=== PATIENT | male | born 1965 | race Caucasian/White ===

== ENCOUNTER 2023-08-10 13:16 | Outpatient (CLI) | payer MEDICAID, SELFPAY ==
[2023-08-12 05:07] LABS: Alpha Antitrypsin Serum 74 mg/dL (101-187)
== END 2023-08-10 23:59 | disposition home or self-care (01) ==
PROVIDERS: PCP Family Medicine; Referring Provider Internal Medicine Critical Care Medicine; Visit Provider Internal Medicine Critical Care Medicine
DX: E88.01 Alpha-1-antitrypsin deficiency (principal)
CPT/HCPCS: 36415; 82103

== ENCOUNTER → 2023-08-18 | Outpatient (CLI) | payer MEDICAID, SELFPAY ==
--- NOTE | 2023-08-18 14:50 | CT_ITS ---
EXAM: CT CHEST, LUNG CANCER SCREENING WITHOUT INTRAVENOUS CONTRAST CLINICAL INDICATION: h/o Tobacco Dependency TECHNIQUE: Helically acquired images were obtained of the chest without intravenous contrast using low dose (LDCT) lung cancer screening protocol. This CT exam was performed using one or more of the following dose reduction techniques: automated exposure control, adjustment of the mA and/or kV according to patient size, and/or use of iterative reconstruction technique. COMPARISON: No relevant prior studies available. FINDINGS: LUNGS AND PLEURAL SPACES: There is a spiculated lesion right lower lobe and measures 2.3 x 1.2 x 1.7 cm. There is a second spiculated lesion in the left lower lobe and measures 1.3 x 0.9 x 0.5 cm. There are minimal emphysematous changes in the lung apices. No pleural effusion or thickening. No pneumothorax. HEART: Unremarkable. Heart size is normal. No pericardial effusion. No significant coronary artery calcifications. MEDIASTINUM: Unremarkable. No mediastinal or hilar adenopathy. Esophagus is unremarkable. No hiatal hernia. THYROID: Unremarkable. No thyroid lesions. BONES/JOINTS: Unremarkable. No suspicious lytic or blastic abnormality. VASCULATURE: Unremarkable. Thoracic aorta is non-dilated. LYMPH NODES: Unremarkable. No enlarged lymph nodes. CT/Low Dose CT Lung Screening IMPRESSION: Spiculated masses in the lung bases larger on the right than on the left. Lung-RADS score: 4B - Very Suspicious. Recommend chest CT with or without contrast, PET/CT and/or tissue sampling depending on the probability of malignancy and comorbidities. PET/CT may be used when there is a >=8 mm solid component. For new large nodules that develop on an annual repeat screening CT, a 1 month LDCT may be recommended to address potentially infectious or inflammatory conditions. Electronically Signed: Otis Hirsch MD at 20:16 EST ,
== END | disposition home or self-care (01) ==
PROVIDERS: PCP Family Medicine; Referring Provider Internal Medicine Critical Care Medicine; Visit Provider Internal Medicine Critical Care Medicine
DX: F17.211 Nicotine dependence, cigarettes, in remission (principal)
CPT/HCPCS: 71271

== ENCOUNTER → 2023-08-25 | Outpatient (CLI) | payer MEDICAID, SELFPAY ==
[2023-08-25] VITALS (23 sets, daily range): BP systolic 60–154; BP diastolic 32–105; PULSE 77–92; RESP 14–18; TEMP 36.8; O2SAT 30–100; BMI 27.8
--- NOTE | 2023-08-25 | ASPIGT_PTH ---
PATHOLOGY RESULTS PATIENT: CLARKE BROWN LOC: CT U#:[id number] AGE/SX: 58/M ROOM: RE08/25/[address]: MAXWELL Joseph : 1965 BED: DIS: 08/25/2023 SPEC #: [id number] RECD: 08/25/23 10:36 STATUS: ANY MK #: [id number] ADELFO: 08/25/23 00:[address]: Alba Carlson NP DEPT: SURGICAL PATHOLOGY RECD BY: John Huynh ENTERED: 08/25/23 10:36 SP TYPE: ASP RAD OTHR DR: Dr. Sofia Valencia DO Tissues: Lung, NOS Procedures: FNA Specimen Adequacy Special Stain Group II Surgery Specimen Level IV Imprint (control) HEADER OPERATION: CT-guided right lung biopsy PRE-OP DIAGNOSIS: Right lower lung mass TISSUE SUBMITTED: Right lung 20-gauge core x6 MICROSCOPIC DIAGNOSIS Right lung, CT-guided core biopsy: Fragments of lung parenchymal tissue with focal fibrosis, negative for malignancy. See comment. MORIAH:beba 08/28/2023 COMMENT The specimen is evaluated at the time of biopsy by Dr. Duggan. Immediate Evaluation = Mildly atypical cells noted. Multiple levels are examined. Correlation with clinical, radiologic findings and appropriate follow up are necessary. Case has been reviewed in consultation with Dr. Moya who concurs with the above diagnosis. IDC:AM MICROSCOPIC DESCRIPTION Slides are reviewed. GROSS DESCRIPTION Received in fixative is one container labeled with the patient's name and designated right lower lung biopsy. The specimen consists of multiple irregular fragments of light lane soft tissue that in aggregate measure 1.0 x 0.2 x <0.1 cm. The specimen is totally submitted in one cassette. Two touch imprints are prepared at the time of core biopsy. / MORIAH:beba 08/25/23 TC:5 CPT: 07448, 87141
--- OUTSIDE RECORDS SUMMARY | 2023-08-25 09:13 | XMS RPT_ITS | CCD ---
Author Name Unknown Address [address] [place] [address] Organization [facility] Care Team Providers Care Public Service Administrator Name Role Phone Arie Noland Unavailable Unavailable Vasyl Williamson Unavailable Unavailable Sheets DO, Kayden Herrera Primary Care Provider Sheets DO, Kayden Herrera Primary Care Provider Sheets DO, Kayden Herrera Primary Care Provider Sheets DO, Kayden Herrera Primary Care Provider SheetsKayden Unavailable Unavailable Unavailable Kyleigh, Dr. Sully Byers Referring Unavai lable Sheets, Dr. Kayden Parr Primary Care Unavailable Piasedorina, Dr. Sully Byers Attending Unavai lable Annie, Dr. Kayden Parr Primary Care Unavailable Sheets, Dr. Kayden Parr Referring Unavailable Choloasedorina, Dr. Sully Byers Attending Unavai lable Kyleigh, Dr. Sully Byers Attending Unavai lable Sheets, Dr. Kayden Parr Primary Care Unavailable Piasedorina, Dr. Sully Byers Referring Unavai lable Sheets, Dr. Kayden Parr Primary Care Unavailable Pibuddy, Dr. Sully Byers Attending Mary Ellenvai lable Kyleigh, Dr. Sully Byers Referring Unavai lable Dasha Zepeda, Dr. Negro Hernandez Attending U navailable Dasha Zepeda, Dr. Negro Hernandez Referring U navelvi Valencia, Dr. Kayden Parr Primary Care Unavailable Kyleigh, Dr. Sully Byers Attending Mary Ellenvaladonna labeh Valencia, Dr. Kayden Parr Primary Care Unavailable Piasecki, Dr. Sully Byers Referring Unavai lable Piasecki, Dr. Sully Byers Attending Unavai lable Sheets, Dr. Kayden Parr Primary Care Unavailable Piasecki, Dr. Sully Byers Referring Unavai lable Sheets, Dr. Kayden Parr Primary Care Unavailable Brown, Dr. Mely Delacruz Attending Unavail able Sheets, Dr. Kayden Parr Primary Care Unavailable Sheets, Dr. Kayden Parr Referring Unavailable Piaseckladonna, Sully Attending Unavailable Sheets, Dr. Kayden Parr Primary Care Unavailable Sheets, Dr. Kaydne Parr Attending Unavailable Sheets, Dr. Kayden Parr Primary Care Unavailable Sheets, Dr. Kayden Parr Referring Unavailable Sheets, Dr. Kayden Parr Attending Unavailable Sheets, Dr. Kayden Parr Primary Care Unavailable Brown, Dr. Mely Delacruz Attending Unavail able Sheets, Dr. Kayden Parr Primary Care Unavailable Brown, Dr. Mely Delacruz Attending Unavail able Sheets, Dr. Kayden Parr Primary Care Unavailable Brown, Dr. Mely Delacruz Attending Unavail able Sheets, Dr. Kayden Parr Primary Care Unavailable Brown, Dr. Mely Delacurz Attending Unavail able Sheets, Dr. Kayden Parr Primary Care Unavailable Piasecki, Sully Referring Unavailable PiaseckiSully Attending Unavailable Sheets, Dr. Kayden Parr Primary Care Unavailable Brown, Dr. Mely Delacruz Attending Unavail able Sheets, Dr. Kayden Parr Referring Unavailable Sheets, Dr. Kayden Parr Primary Care Unavailable Sheets, Dr. Kayden Parr Attending Unavailable Sheets, Dr. Kayden Parr Primary Care Unavailable Sheets, Dr. Kayden Parr Attending Unavailable Sheets, Dr. Kayden Parr Referring Unavailable Sheets, Dr. Kayden Parr Referring Unavailable Sheets, Dr. Kayden Parr Primary Care Unavailable PiaseckSully dougherty Attending Unavailable Sheets, Dr. Kayden Parr Primary Care Unavailable Brown, Dr. Mely Delacruz Attending Unavail able Sheets, Dr. Kayden Parr Primary Care Unavailable Brown, Dr. Mely Delacruz Attending Unavail able Sheets, Dr. Kayden Parr Primary Care Unavailable Brown, Dr. Mely Delacruz Attending Unavail able Sheets, Dr. Kayden Parr Primary Care Unavailable Brown, Dr. Mely Delacruz Attending Unavail able Sheets, Dr. Kayden Parr Primary Care Unavailable PiuSlly goodwin Attending Unavailable Sheets, Dr. Kayden Parr Referring Unavailable Sheets, Dr. Kayden Parr Primary Care Unavailable PiSully goodwin Attending Unavailable Sheets, Dr. Kayden Parr Referring Unavailable Sheets, Dr. Kayden Parr Primary Care Unavailable PiSully goodwin Attending Unavailable Sheets, Dr. Kayden Parr Referring Unavailable Sheets, Dr. Kayden Parr Primary Care Unavailable PiaseSully cam Attending Unavailable Sheets, Dr. Kayden Parr Primary Care Unavailable Sheets, Dr. Kayden Parr Referring Unavailable Sheets, Dr. Kayden Parr Attending Unavailable Sheets, Dr. Kayden Parr Primary Care Unavailable Sheets, Dr. Kayden Parr Referring Unavailable Sheets, Dr. Kayden Parr Attending Unavailable Sheets, Dr. Kayden Parr Primary Care Unavailable Brown, Dr. Mely Delacruz Attending Unavail able Sheets, Dr. Kayden Parr Primary Care Unavailable Brown, Dr. Mely Delacruz Attending Unavail able Sheets, Dr. Kayden Parr Primary Care Unavailable Sheets, Dr. Kayden Parr Referring Unavailable PiSully goodwin Attending Unavailable Sheets, Dr. Kayden Parr Primary Care Unavailable Brown, Dr. Mely Delacruz Attending Unavail able Sheets, Dr. Kayden Parr Primary Care Unavailable Brown, Dr. Mely Delacruz Attending Unavail able Sheets, Dr. Kayden Parr Primary Care Unavailable Brown, Dr. Mely Delacruz Attending Unavail able Sheets, Dr. Kayden Parr Primary Care Unavailable Brown, Dr. Mely Delacruz Attending Unavail able Sheets, Dr. Kayden Parr Primary Care Unavailable Brown, Dr. Mely Delacruz Attending Unavail able Sheets, Dr. Kayden Parr Primary Care Unavailable Brown, Dr. Mely Delacruz Attending Unavail able Brown, Dr. Mely Delacruz Attending Unavail able Sheets, Dr. Kayden Parr Primary Care Unavailable Brown, Dr. Mely Delacruz Attending Unavail able Sheets, Dr. Kayden Parr Primary Care Unavailable Sheets, Dr. Kayden Parr Primary Care Unavailable Sheets, Dr. Kayden Parr Referring Unavailable Sheets, Dr. Kayden Parr Attending Unavailable Sheets, Dr. Kayden Parr Primary Care Unavailable Brown, Dr. Mely Delacruz Attending Unavail able Sheets, Dr. Kayden Parr Primary Care Unavailable Brown, Dr. Mely Delacruz Attending Unavail able Sheets, Dr. Kayden Parr Primary Care Unavailable Brown, Dr. Mely Delacruz Attending Unavail able Sheets, Dr. Kayden Parr Primary Care Unavailable Brown, Dr. Mely Delacruz Attending Unavail able Sheets, Dr. Kayden Parr Primary Care Unavailable Brown, Dr. Mely Delacruz Attending Unavail able Sheets, Dr. Kayden Parr Primary Care Unavailable Brown, Dr. Mely Delacruz Attending Unavail able Sheets, Dr. Kayden Parr Primary Care Unavailable Brown, Dr. Mely Delacruz Attending Unavail able Sheets, Dr. Kayden Parr Primary Care Unavailable Brown, Dr. Mely Delacruz Attending Unavail able Sheets, Dr. Kayden Parr Primary Care Unavailable Brown, Dr. Mely Delacruz Attending Unavail able Sheets, Dr. Kayden Parr Primary Care Unavailable Brown, Dr. Mely Delacruz Attending Unavail able Sheets, Dr. Kayden Parr Primary Care Unavailable Sheets, Dr. Kayden Parr Attending Unavailable Sheets, Dr. Kayden Parr Primary Care Unavailable Brown, Dr. Mely Delacruz Attending Unavail able Sheets, Dr. Kayden Parr Referring Unavailable Sheets, Dr. Kayden Parr Primary Care Unavailable Sully Arizmendi Unavailable Sheets, Dr. Kayden Parr Primary Care Unavailable Sheets, Dr. Kayden Parr Referring Unavailable Sheets, Dr. Kayden Parr Attending Unavailable Sheets, Dr. Kayden Parr Primary Care Unavailable Brown, Dr. Mely Delacruz Attending Unavail able Sheets, Dr. Kayden Parr Primary Care Unavailable Brown, Dr. Mely Delacruz Attending Unavail able Sheets, Dr. Kayden Parr Primary Care Unavailable Brown, Dr. Mely Delacruz Attending Unavail able Sheets, Dr. Kayden Parr Primary Care Unavailable Brown, Dr. Mely Delacruz Attending Unavail able Sheets, Dr. Kayden Parr Primary Care Unavailable Brown, Dr. Mely Heath Unavail able Sheets Kayden MARIE Primary Care Pro vider SULLY ARIZMENDI Attending Unavailable SHEETS, KAYDEN PARR Primary Care Mary Ellen vailable BROWNMELY Attending Unavailable SHEETS, KAYDEN C Primary Care Unavailable SHEETS, KAYDEN C Referring Unavailable SHEETS, KAYDEN C Primary Care Unavailable SHEETS, KAYDEN C Referring Unavailable SHEETS, KAYDEN C Attending Unavailable SHEETS, KAYDEN C Primary Care Unavailable SHEETS, KAYDEN C Referring Unavailable SHEETS, KAYDEN C Primary Care Unavailable SHEETS, KAYDEN C Primary Care Unavailable SHEETS, KAYDEN C Referring Unavailable SHEETS, KAYDEN C Primary Care Unavailable SHEETS, KAYDEN C Attending Unavailable SHEETS, KAYDEN C Primary Care Unavailable SHEETS, KAYDEN C Attending Unavailable SHEETS, KAYDEN C Attending Unavailable SHEETS, KAYDEN C Primary Care Unavailable SHEETS, KAYDEN PARR Primary Care Mary Ellen vailable SHEETS, KAYDEN PARR Primary Care Mary Ellen vailable Allergies Allergy Classification Reported Allergen(s) Allergy Type Date of Onset Reaction(s) Facility (1 source) methylprednisoLON E; Translations: [Solu-MEDROL] Drug Allergy [facility] Repository (12 sources) fluticasone / umeclidinium / vilanterol; Translations: [FLUTICASONE-UMEC LIDIN-VILANTER] Drug Allergy 1 Other: See Comments [facility] Work Phone: (20 sources) methylPREDNISolon e; Translations: [METHYLPREDNISOLO NE SODIUM SUCC] Drug Allergy 1 Other: See Comments, Unknown [facility] Work Phone: (20 sources) fluticasone / umeclidinium / vilanterol Drug Allergy 1 Other: See Comments [facility] Work Phone: (19 sources) methylPREDNISolon e; Translations: [SOLU-Medrol SOLR] Drug Allergy Hypotension [facility] DO Work Phone: Medications Current Medications Medication Drug Class(es) Dates Sig (Normalized) Sig (Original) Lactobacillus acidophilus (1 source) Lactobacillus acidophilus (PROBIOTIC ORAL) Take by mouth. Caps; use as directed 0 Active lactobacillus rhamnosus gg [id number] unt oral capsule (4 sources) Start: 10-12-2022 End: 10-12-2023 take 1 capsule by mouth once daily lactobacillus rhamnosus (CULTURELLE) 15 billion cell capsule TAKE ONE CAPSULE BY MOUTH DAILY. FOR 30 DAYS 30 capsule 0 10/12/2022 10/12/2023 Active Completed/Discontinued Medications Medication Drug Class(es) Dates Sig (Normalized) Sig (Original) [id number] actuat albuterol 0.09 mg/actuat metered dose inhaler (20 sources) beta2-Adrenergic Agonist Start: 11-12-2021 End: 07-22-2022 albuterol HFA (VENTOLIN HFA) 90 mcg/actuation inhaler USE 1 OR 2 INHALATIONS EVERY 4 HOURS NEEDED 1 Each 07/22/2022 Active Problems Active Problems Problem Classification Problem Date Documented Date Episodic/Chronic Alcohol-related disorders (20 sources) Alcohol dependence; Translations: [Alcohol dependence, uncomplicated] Onset: 02-09-2017 02-09-2017 Chronic Anxiety disorders (20 sources) Generalized anxiety disorder; Translations: [Generalized anxiety disorder] Onset: 01-13-2022 01-13-2022 Chronic Chronic obstructive pulmonary disease and bronchiectasis (20 sources) Centriacinar emphysema; Translations: [Centrilobular emphysema] Onset: 02-09-2017 Chronic Chronic obstructive pulmonary disease and bronchiectasis (2 sources) Bronchitis; Translations: [Bronchitis] Onset: 06-12-2023 Episodic Diseases of white blood cells (2 sources) Leukemoid reaction; Translations: [Leukemoid reaction] Onset: 07-20-2022 Chronic Essential hypertension (20 sources) Essential hypertension; Translations: [Essential (primary) hypertension] Onset: 03-03-2017 03-03-2017 Chronic Immunizations and screening for infectious disease (1 source) Needs influenza immunization; Translations: [Encounter for immunization] Episodic Other aftercare (1 source) Long-term current use of systemic steroid; Translations: [intermediate manager (current) use of systemic steroids] Episodic Other circulatory disease (19 sources) H/O: hypertension; Translations: [Personal history of other diseases of circulatory system] Episodic Other lower respiratory disease (2 sources) Multiple nodules of lung; Translations: [Other nonspecific abnormal finding of lung field] Episodic Other lower respiratory disease (19 sources) Dyspnea on exertion; Translations: [Other respiratory abnormalities] Onset: 04-06-2023 04-06-2023 Episodic Other lower respiratory disease (20 sources) Hypoxemia; Translations: [Hypoxemia] Onset: 04-06-2023 06-13-2023 Episodic Other nutritional; endocrine; and metabolic disorders (20 sources) Pqcpt-2-hwoevcpaosv deficiency; Translations: [Nhwjk-6-olbugdolhwz deficiency] Onset: 07-12-2021 07-12-2021 Chronic Other nutritional; endocrine; and metabolic disorders (13 sources) Obese class I; Translations: [Obesity, unspecified] Onset: 08-16-2022 Chronic Other nutritional; endocrine; and metabolic disorders (13 sources) Body mass index 30+ - obesity; Translations: [Body mass index (BMI) 31.0-31.9, adult] Onset: 08-16-2022 Chronic Other nutritional; endocrine; and metabolic disorders (1 source) Antichymotrypsin homfmzoieh-fqkix-4; Translations: [Other disorders of plasma-protein metabolism, not elsewhere classified] Onset: 04-06-2023 04-06-2023 Chronic Other nutritional; endocrine; and metabolic disorders (1 source) Ujzgn-7-gkntndnesps deficiency; Translations: [Qbvxf-9-dnnnneaxhxb deficiency (HCC)] Onset: 07-12-2021 Chronic Other nutritional; endocrine; and metabolic disorders (1 source) Obesity, unspecified; Translations: [Obesity, Class I, BMI 30-34.9] Onset: 08-16-2022 Chronic Other nutritional; endocrine; and metabolic disorders (1 source) Body mass index (BMI) 31.0-31.9, adult; Translations: [BMI 31.0-31.9,adult] Onset: 08-16-2022 Chronic Residual codes; unclassified (20 sources) Obstructive sleep apnea syndrome; Translations: [Obstructive sleep apnea (adult) (pediatric)] Onset: 02-09-2017 02-09-2017 Chronic Residual codes; unclassified (20 sources) Obstructive sleep apnea of adult; Translations: [Obstructive sleep apnea (adult)(pediatric)] Onset: 04-06-2023 04-06-2023 Chronic Respiratory failure; insufficiency; arrest (adult) (3 sources) Dependence on nocturnal oxygen therapy; Translations: [Dependence on supplemental oxygen] Onset: 03-07-2023 Chronic Past or Other Problems Problem Classification Problem Date Documented Da te Episodic/Chronic Diabetes mellitus without complication (3 sources) Prediabetes; Translations: [Prediabetes] Onset: 02-21-2023 02-21-2023 Episodic Other aftercare (1 source) Other oysterman (current) drug therapy; Translations: [Medication management] Onset: 07-20-2022 Episodic Other and unspecified benign neoplasm (2 sources) Other benign neoplasm of skin of left ear and external auricular canal; Translations: [Benign neoplasm of ear and external auditory canal] Onset: 10-25-2022 Episodic Other lower respiratory disease (19 sources) Cough; Translations: [Cough] Onset: 11-27-2017 11-27-2017 Episodic Other screening for suspected conditions (not mental disorders or infectious disease) (8 sources) Patient encounter status; Translations: [Encounter for screening for malignant neoplasm of prostate] Onset: 02-10-2020 02-10-2020 Episodic Other upper respiratory infections (3 sources) Sore throat symptom; Translations: [Acute pharyngitis, unspecified] Onset: 07-20-2022 Episodic Screening and history of mental health and substance abuse codes (20 sources) Ex-smoker; Translations: [Personal history of nicotine dependence] Onset: 11-27-2017 11-27-2017 Episodic Results Test Name Value Interpretation Reference Range Facil ity Vital Signs Date Time Vital Sign Value Performing Clinician Facility 06-12-2023 13:38-0400 Body height 180.3 cm Sully Arizmendi DO Work Phone: [facility] 06-12-2023 13:38-0400 Body mass index (BMI) [Ratio] 29.23 kg/m2 Sully Arizmendi DO Work Phone: [facility] 06-12-2023 13:38-0400 Body temperature 97.7 [degF] Sully Arizmendi DO Work Phone: [facility] 06-12-2023 13:38-0400 Body weight 95.07 kg Sully Arizmendi DO Work Phone: [facility] 06-12-2023 13:38-0400 Diastolic blood pressure 80 mm[Hg] Sully Arizmendi DO Work Phone: [facility] 06-12-2023 13:38-0400 Heart rate 90 /min Sully Kyleigh DO Work Phone: [facility] 06-12-2023 13:38-0400 SaO2% (BldA) [Mass fraction] 94 % Sully Emmanuelanabelledorina DO Work Phone: [facility] Encounters Encounter Date Encounter Type Care Provider Facility Start: 08-15-2023 End: 08-16-2023 ambulatory KAYDEN VALENCIA [facility] Start: 07-18-2023 End: 07-19-2023 ambulatory KAYDEN VALENCIA [facility] Start: 06-22-2023 Orders Only Librado Contreras MD Work Phone: Gastroenterology Start: 06-12-2023 End: 06-12-2023 ambulatory SULLY Manzano [facility] Start: 06-12-2023 End: 06-12-2023 Office outpatient visit 15 minutes Sully Arizmendi DO Work Phone: [facility] Procedures Date Procedure Procedure Detail Performing Clinician Start: 10-12-2022 Lipid 1996 panel - S rhianna or Plasma Kayden Valencia DO Work Phone: Start: 08-24-2022 PFIZER-BIONTECH COVI D-19 BIVALENT BOOSTER VACCINE, AGE 12+ YR Kayden Valencia DO Work Phone: Start: 07-22-2022 INFLUENZA VACCINE QUADRIVALENT 6 MO - 64 YRS IM Mely Hutton MD Work Phone: Start: 06-21-2022 STREP A MOLECULAR (POC) [facility] Provider Start: 06-09-2021 Adult depression scr eening assessment Devi Solis PA-C Work Phone: Start: 10-16-2017 Colonoscopy Devi choe PA-C Work Phone: Cardiac catheterization Quinton Valencia Work Phone: Plan of Treatment Date Care Activity Detail Author Start: 10-17-2027 Colonoscopy COLONOSCOPY [facility] Start: 10-17-2027 COLORECTAL CANCER SCREENING COLORECTAL CANCER SCREENING [facility] Start: 10-13-2027 Lipid 1996 panel - Serum or Plasma Lipid Screening [facility] Start: 10-13-2027 LIPID SCREEN LIPID SCREEN [facility] Start: 07-20-2027 LIPID SCREEN LIPID SCREEN [facility] Start: 07-20-2027 PROSTATE CANCER SCREENING DISCUSSION PROSTATE CANCER SCREENING DISCUSSION [facility] Start: 05-27-2026 LIPID SCREEN LIPID SCREEN [facility] Start: 05-27-2026 PROSTATE CANCER SCREENING DISCUSSION PROSTATE CANCER SCREENING DISCUSSION [facility] Start: 10-12-2025 Diabetes mellitus screening Diabetes Screening [facility] Start: 10-12-2025 DIABETES SCREEN DIABETES SCREEN [facility] Start: 10-12-2025 Diabetes Screening Diabetes Screening [facility] Start: 07-20-2025 DIABETES SCREEN DIABETES SCREEN [facility] Start: 07-25-2024 DIABETES SCREEN DIABETES SCREEN [facility] Start: 02-22-2024 Annual PCP Team Chronic Disease Visit Annual PCP Team Chronic Disease Visit [facility] Start: 02-22-2024 BP Controlled (<130/80) BP Controlled (<130/80) [facility] in Start: 12-10-2023 ANNUAL PCP TEAM CHRONIC DISEASE VISIT ANNUAL PCP TEAM CHRONIC DISEASE VISIT [facility] Start: 11-13-2023 End: 11-13-2023 Patient encounter procedure 11/13/2023 1:40 PM EDT Office Visit [facility] [address] [place] [id number] Sully Arizmendi DO [address] [place] [address] [facility] Start: 10-30-2023 FUV, Provider: Negro Coburn, Status: Pen, Time: 1:00 PM FUV, Provider: Negro Coburn, Status: Luis, Time: 1:00 PM [id number] [address] Work Phone: Start: 10-30-2023 End: 10-30-2023 Patient encounter procedure 10/30/2023 1:00 PM EDT Office Visit [facility] [address] [place] [address] [address] [place] [id number] Negro Coburn MD [address] [place] [address] [address], [address] [place] [address] [facility] Start: 10-26-2023 ANNUAL PCP TEAM CHRONIC DISEASE VISIT ANNUAL PCP TEAM CHRONIC DISEASE VISIT [facility] Start: 10-26-2023 BP CONTROLLED (<130/80) BP CONTROLLED (<130/80) [facility] Start: 10-13-2023 Hemoglobin A1c measurement Diabetes: Hemoglobin A1C [facility] Start: 08-24-2023 BP CONTROLLED (<130/80) BP CONTROLLED (<130/80) [facility] Start: 08-16-2023 ANNUAL PCP TEAM CHRONIC DISEASE VISIT ANNUAL PCP TEAM CHRONIC DISEASE VISIT [facility] Start: 08-16-2023 BP CONTROLLED (<130/80) BP CONTROLLED (<130/80) [facility] in Start: 08-16-2023 Urine microalbumin profile [facility] Immunizations Immunization Date Immunization Notes Care Provider Fa leighton 08-24-2022 COVID-19 booster vaccine, age 12+ yr, bivalent (PFIZER-BIONTECH) Nurse Ginger Work Phone: [facility] 07-22-2022 influenza, injectabl e, quadrivalent, contains preservative Mely Hutton MD Work Phone: [facility] 07-22-2022 influenza virus vaccine, unspecified formulation Kayden Annie DO Work Phone: [facility] 03-18-2022 pneumococcal Conjugate, unspecified formulation Mely Hutton MD Work Phone: [facility] Work Phone: 03-18-2022 pneumococcal (PCV20) vaccine, 20 valent (PREVNAR 20) Mely Hutton MD Work Phone: [facility] 03-18-2022 pneumococcal PCV20 vaccine (PREVNAR 20, PF,) 0.5 mL injection Mely Hutton MD Work Phone: [facility] Work Phone: Payers Date Payer Category Payer Unknown [id number] 2022 Medicaid [id number] 2020 Private Health Insurance [facility] CHOICE PLUS [id number] 2020-Present [phone] [address] [place] [address] O [id number]. [id number] 2016 Private Health Insurance 1966 Unknown [id number] 2.16840.1.483376.3.579.2. 356 1966 Unknown [id number] 2.840.1.920419.3.579.2. 356 1966 Unknown [id number] 2.840.1.172058.3.579.2. 356 1966 Unknown [id number] 2.16840.1.032397.3.579.2. 356 1966 Unknown [id number] 2.16.840.1.076421.3.579.2. 356 1966 Unknown [id number] 2.16840.1.147863.3.579.2. 356 1966 Unknown [id number] 2.16840.1.079579.3.579.2. 356 1966 Unknown [id number] 2.16.840.1.719824.3.579.2. 1069 1966 Unknown [id number] 2.16.840.1.118036.3.579.2. 1069 1966 Unknown [id number] 2.16.840.1.893852.3.579.2. 1069 1966 Unknown [id number] 2.16840.1.612736.3.579.2. 1069 1966 Unknown [id number] 2.16.840.1.524794.3.579.2. 1068 1966 Unknown [id number] 2.16.840.1.634089.3.579.2. 1068 1966 Unknown [id number] 2.16.840.1.244307.3.579.2. 1068 1966 Unknown [id number] 2.16.840.1.019361.3.579.2. 1068 1966 Unknown [id number] 2.16.840.1.956290.3.579.2. 1068 1966 Unknown [id number] 2.16.840.1.363489.3.579.2. 1068 1966 Unknown [id number] 2.16.840.1.006007.3.579.2. 1068 1966 Unknown [id number] 2.16.840.1.313896.3.579.2. 1068 1966 Unknown [id number] 2.16.840.1.741136.3.579.2. 1068 1966 Unknown [id number] 2.16.840.1.539129.3.579.2. 1068 1966 Unknown [id number] 2.16.840.1.030935.3.579.2. 1068 1966 Unknown [id number] 2.16.840.1.704803.3.579.2. 1068 1966 Unknown [id number] 2.16.840.1.397517.3.579.2. 1068 1966 Unknown [id number] 2.16.840.1.367416.3.579.2. 1068 1966 Unknown [id number] 2.16.840.1.261040.3.579.2. 1068 1966 Unknown [id number] 2.16.840.1.804708.3.579.2. 1068 1966 Unknown [id number] 2.16.840.1.675064.3.579.2. 1068 1966 Unknown [id number] 2.16.840.1.030429.3.579.2. 1068 1966 Unknown [id number] 2.16.840.1.983263.3.579.2. 1068 1966 Unknown [id number] 2.16.840.1.100977.3.579.2. 1068 1966 Unknown [id number] 2.16.840.1.936111.3.579.2. 1068 1966 Unknown [id number] 2.16.840.1.700467.3.579.2. 1068 1966 Unknown [id number] 2.16.840.1.286329.3.579.2. 1068 1966 Unknown [id number] 2.16.840.1.134619.3.579.2. 1068 1966 Unknown [id number] 2.16.840.1.609291.3.579.2. 1068 1966 Unknown [id number] 2.16.840.1.203665.3.579.2. 1068 1966 Unknown [id number] 2.16.840.1.007338.3.579.2. 1068 1966 Unknown [id number] 2.16.840.1.523294.3.579.2. 1068 1966 Unknown [id number] 2.16.840.1.930648.3.579.2. 1068 1966 Unknown [id number] 2.16.840.1.921683.3.579.2. 1068 1966 Unknown [id number] 2.16.840.1.451296.3.579.2. 1068 1966 Unknown [id number] 2.16.840.1.749929.3.579.2. 1068 1966 Unknown [id number] 2.16.840.1.401072.3.579.2. 1068 1966 Unknown [id number] 2.16.840.1.013894.3.579.2. 1068 1966 Unknown [id number] 2.16.840.1.437731.3.579.2. 1068 1966 Unknown [id number] 2.16.840.1.162415.3.579.2. 1068 1966 Unknown [id number] 2.16.840.1.085382.3.579.2. 1068 1966 Unknown [id number] 2.16.840.1.597620.3.579.2. 1068 1966 Unknown [id number] 2.16.840.1.555415.3.579.2. 1068 1966 Unknown [id number] 2.16.840.1.727177.3.579.2. 1068 1966 Unknown [id number] 2.16.840.1.635432.3.579.2. 1068 1966 Unknown [id number] 2.16.840.1.795489.3.579.2. 1068 1966 Unknown [id number] 1965 Unknown [id number] 1068 1966 Unknown [id number] 1068 1966 Unknown [id number]. 1068 1966 Unknown [id number] 1068 1966 Unknown [id number]. 1068 1966 Unknown [id number]. 1069 1966 Unknown [id number]. 1069 1966 Unknown [id number] Self-pay Unknown Social History Date Type Detail Facility Start: 08-11-2016 End: 07-22-2022 Tobacco smoking status NHIS Ex-smoker [facility] Start: 08-14-1983 End: 07-14-2016 History of tobacco use Current smoker [facility] Start: 08-14-1983 End: 07-14-2016 History of tobacco use Cigarette Smoker [facility] Start: 08-11-2016 End: 07-19-2020 Cigarettes smoked current (pack per day) - Reported 1 [facility] Work Phone: Start: 08-11-2016 End: 07-22-2022 Tobacco use and exposure Smokeless tobacco non-user [facility] Start: 08-20-2021 End: 02-21-2023 Alcohol intake Ex-drinker (finding) [facility] Start: 1965 Sex Assigned At Male C [facility] Start: 11-10-2021 History SDOH Alcohol Comment history of alcohol abuse [facility] Start: 11-02-2021 End: 06-12-2023 Exposure to SARS-CoV-2 (event) Not sure [facility] Start: 07-19-2020 End: 02-21-2023 Tobacco use panel [facility] Work Phone: Adult Depression Screening Assessment 0 [facility] Work Phone: Start: 12-04-2018 Gender identity Identifies as male gender (finding) [facility] Start: 06-03-2021 Sexual orientation Heterosexual (ally mark) [facility] Clinical Notes 11-27-2017 to 06-22-2023 Librado Contreras MD - 06/22/2023 7:29 PM Cori Arizmendi DO - 06/12/2023 1:20 PM EDTTelephone Atiya - Marcy Agarwal MA - 05/05/2023 11:22 AM EDTPatient InstructionsPatient Instructions Note Date & Type Note Facility 06-22-2023 Note HNO ID: [id number] Author: Librado Contreras MD Service: ? Author Type: Physician Type: Progress Notes Filed: 06/22/2023 8:15 PM Note Text: Pos COVID HIGH RISKS (PULM DX) [facility] 06-22-2023 History of Present illness Narrative Pos COVID HIGH RISKS (PULM DX)\ Paxslovid documented in this encounter [facility] 06-12-2023 History of Present illness Narrative Subjective Patient ID: Clarke Brown is a 58 y.o. male who presents for Bronchitis (4 MONTH CK/HERE WITH , TONI MENDEZ) and Emphysema. HPI Patient was seen today on a 4-month follow-up visit for his chronic bronchitis and emphysema. He was accompanied by his . Patient reports that his breathing has been stable. He however could not afford the Breztri inhaler so has resumed using Symbicort 160/4.5 at 2 puffs twice a day and Spiriva Respimat at 2.5 mcg dose at 2 and elations daily. Patient also has an albuterol inhaler that he uses as needed 4 times daily for shortness of breath. He also has supplemental oxygen that he has been using as needed. We also talked about using nebulized albuterol treatments and I felt that it would be better to use the albuterol inhaler and not combining that with nebulized treatments because of the side effects associated with that. Patient denies any cough or sputum production currently and has not had any wheezing. He denies dyspnea with ADLs are going from his car to the office. Review of Systems He denies any problems with fever, chills, rhinitis or sore throat and no lower extremity edema. He has not been smoking since 2016. All other review of systems were noncontributory. Refer to the [facility]. Objective Physical Exam HEENT, no inflammation noted on examination of the oropharynx. He was reminded to rinse his mouth and gargle with water after using the Symbicort. Pulmonary, decreased breath sounds bilaterally but clear. Cardio, heart sounds are regular rate and rhythm. Extremities, no cyanosis, clubbing or pretibial edema. Psych, the patient was alert and oriented x3. Assessment/Plan Impressions: 1. Chronic bronchitis. 2. Emphysema. 3. Hypoxemia. Recommendations: 1. Use the nebulized albuterol treatments only when needed urgently. 2. Continue with his current bronchodilators because of the cost. 3. Follow-up with the patient in 5 months. Patient was encouraged to contact our office if he has any new problems with his breathing. This note was transcribed using the [email or web address] Dictation system. There may be grammatical, punctuation, or verbiage errors that occur with voice recognition programs. documented in this encounter [facility] Work Phone: 05-05-2023 Miscellaneous Notes Gave patients (tnoi) all information. Marcy Agarwal MA Please notify pt that, because he had a CTA on 10/10/22 showing no pulmonary nodules - no repeat CT is needed as f/u from the CT of 04/29/22 Kayden Valencia DO ----- Message from Marcy Agarwal MA sent at 05/04/2022 12:56 PM EDT ----- Remind pt. Time to recheck CT chest. (Last year showed stable nodule.). Marcy Agarwal MA documented in this encounter [facility] 02-21-2023 Note HNO ID: [id number] Author: Kayden Valencia DO Service: ? Author Type: Physician Type: Progress Notes Filed: 03/07/2023 5:14 PM Note Text: Subjective Hypertension Associated symptoms include shortness of breath. Pertinent negatives include no blurred vision, chest pain, headaches, malaise/fatigue or palpitations. He is participating in pulmonary rehab 2-3 days per week He uses oxygen at night, and during the day if he is exerting himself, if the air quality is poor, or if it is hot He tries not to eat late at night ALLERGIES Allergen Reactions Solu-Medrol [Methyl* Other: See Comments Passed out in ER after injection in 2017 Abhilashell Leyvakezia [Fl* Other: See Comments Made patient short of breath Current Outpatient Medications Medication Sig Dispense Refill losartan (COZAAR) 100 mg tablet Take 1 tablet by mouth once daily. 90 tablet 1 hydroCHLOROthiazide 25 mg tablet Take 1 tablet by mouth once daily. 90 tablet 1 hydrOXYzine HCl (ATARAX) 25 mg tablet TAKE 1 TABLET BY MOUTH THREE TIMES DAILY NEEDED FOR ANXIETY. 90 tablet 11 aspirin, enteric coated (ASPIRIN, ENTERIC COATED) 81 mg EC tablet TAKE ONE TABLET (81 MG) BY MOUTH DAILY. FOR 30 DAYS 30 tablet 0 atorvastatin (LIPITOR) 80 mg tablet TAKE ONE TABLET (80 MG) BY MOUTH DAILY. FOR 30 DAYS 30 tablet 0 albuterol (PROVENTIL) 2.5 mg /3 mL (0.083 %) nebulizer solution INHALE THE CONTENTS OF 1 VIAL VIA NEBULIZER EVERY 4 HOURS NEEDED 120 mL 11 albuterol HFA (VENTOLIN HFA) 90 mcg/actuation inhaler USE 1 OR 2 INHALATIONS EVERY 4 HOURS NEEDED 1 Each 11 budesonide-formoterol (SYMBICORT) 160-4.5 mcg/actuation inhaler USE 2 INHALATIONS ORALLY TWICE DAILY INSTRUCTED 1 Each 11 guaiFENesin (MUCINEX) 600 mg 12 hr tablet Take 1 tablet by mouth twice daily. 60 tablet 11 tiotropium bromide (SPIRIVA RESPIMAT) 2.5 mcg/actuation inhaler Inhale 2 Puffs as instructed once daily. 1 Each 11 predniSONE (DELTASONE) 5 mg tablet Take 1 tablet by mouth once daily. 30 tablet 11 BIPAP Needs new BiPAP machine Use old settings 1 Each 0 HERBAL THERAPY Herbal supplement called Clear Lungs lactobacillus rhamnosus (CULTURELLE) 15 billion cell capsule TAKE ONE CAPSULE BY MOUTH DAILY. FOR 30 DAYS 30 capsule 0 No current facility-administered medications for this visit. ACTIVE PROBLEM LIST Obstructive Sleep Apnea Syndrome Uncomplicated Alcohol Dependence (Hcc) Hypertension, Essential Former Smoker Qaqxi-7-Jedimfsiidg Deficiency (Hcc) Centrilobular Emphysema (Hcc) Alirio (Generalized Anxiety Disorder) Obesity, Class I, Bmi 30-34.9 Bmi 31.0-31.9,Adult Social History Tobacco Use Smoking status: Former Packs/day: 1.00 Years: 32.00 Total pack years: 32.00 Types: Cigarettes Start date: 08/14/1983 Quit date: 07/14/2016 Years since quittin.6 Smokeless tobacco: Never Vaping Use Vaping Use: Never used Substance Use Topics Alcohol use: Not Currently Comment: history of alcohol abuse Drug use: Never Comment: no reported history Family History Problem Relation Age of Onset other (pulmonary embolism) Mother Arthritis Father No Known Problems Sister Heart Brother Reviewed past medical history, family history and surgeries. All medications and supplements were reviewed with the patient. Review of Systems Constitutional: Negative for chills, diaphoresis, fever, malaise/fatigue and weight loss. HENT: Negative for ear pain and hearing loss. Eyes: Negative for blurred vision and double vision. Respiratory: Positive for cough, sputum production and shortness of breath. Cardiovascular: Negative for chest pain, palpitations and leg swelling. Gastrointestinal: Negative for constipation, diarrhea and heartburn. Genitourinary: Negative for dysuria and frequency. Musculoskeletal: Negative for back pain, falls, joint pain and myalgias. Skin: Negative for itching and rash. Neurological: Negative for dizziness, weakness and headaches. Endo/Heme/Allergies: Does not bruise/bleed easily. Psychiatric/Behavioral: Negative for depression and substance abuse. The patient does not have insomnia. Objective BP 124/66 Pulse 75 Temp 36.8 ?C (98.3 ?F) Resp 18 Wt 102.7 kg (226 lb 6.4 oz) SpO2 92% BMI 32.52 kg/m? Physical Exam Constitutional: Appearance: Normal appearance. He is obese. HENT: Head: Normocephalic and atraumatic. Nose: Nose normal. Mouth/Throat: Mouth: Mucous membranes are moist. Dentition: Normal dentition. Eyes: General: Lids are normal. Extraocular Movements: Extraocular movements intact. Conjunctiva/sclera: Conjunctivae normal. Pupils: Pupils are equal, round, and reactive to light. Neck: Thyroid: No thyroid mass or thyromegaly. Vascular: No carotid bruit. Trachea: Phonation normal. Cardiovascular: Rate and Rhythm: Normal rate and regular rhythm. Heart sounds: Normal heart sounds. No murmur heard. No friction rub. No gallop. Pulmonary: Effort: Pulmon (more content not included)... [facility] 01-16-2023 Miscellaneous Notes pharmacy electronically requesting refills as follows: Last seen 12/09/22 [facility] . Last refill 01/13/22 . Requested Prescriptions Pending Prescriptions Disp Refills hydrOXYzine HCl (ATARAX) 25 mg tablet [Pharmacy Med Name: hydroxyzine HCl 25 mg tablet] 90 tablet 11 Sig: TAKE 1 TABLET BY MOUTH THREE TIMES DAILY NEEDED FOR ANXIETY. Please review and advise. Chetna Blanchard MA documented in this encounter [facility] 12-16-2022 History of Present illness Narrative This patient was seen in the office today on a 6-week follow-up visit for his chronic bronchitis and emphysema. The patient is currently on Symbicort 160/4.5 and Spiriva Respimat 2.5 mcg. Patient is also taking prednisone of 5 mg every morning with food which is a medication he has been on for a period of time.Patient reports some recent problems with coughing and some clear sputum production. He denies any wheezing. His oxygen saturation today on OCD at #2 was 89%. His previous instructions were to be at 2 L/min with activity during the day and at nighttime. [place] [id number] [place] Work Phone: 12-14-2022 History of Present illness Narrative This patient was seen in the office today on a 6-week follow-up visit for his chronic bronchitis and emphysema. The patient is currently on Symbicort 160/4.5 and Spiriva Respimat 2.5 mcg. Patient is also taking prednisone of 5 mg every morning with food which is a medication he has been on for a period of time.Patient reports some recent problems with coughing and some clear sputum production. He denies any wheezing. His oxygen saturation today on OCD at #2 was 89%. His previous instructions were to be at 2 L/min with activity during the day and at nighttime. [place] [address] DO Work Phone: 12-09-2022 Note HNO ID: [id number] Author: Kayden Valencia, DO Service: ? Author Type: Physician Type: Progress Notes Filed: 12/09/2022 5:24 PM Note Text: VIRTUAL VISIT PROGRESS NOTE This is a virtual visit using [employer] video visit. It required patient-provider interaction for the medical decision making as documented below. I have communicated my name and active licensure. The patient's identity and physical location were verified at the time of this visit. Either the patient or their legal phlebotomy services representative has been informed of the risks and benefits of -- and alternatives to -- treatment through a remote evaluation and consents to proceed with the evaluation remotely. Clarke Brown is a 57 year old male seen for cough and congestion. Pt is seen in his home with his present He has been going to pulmonary rehab 3 days a week Monday night, he started to not feel well after rehab He went to bed, and got cold chills and felt terrible He did not have a fever at the time He did not feel well yesterday, and his oxygen level was low, around 91% Today he struggled in pulmonary rehab He took Cold Ease, which seemed to help He has been checking his oxygen all day today He is at 94% right now His BP was 140/83, 130/83 He takes prednisone 5 mg daily and mucinex 500 mg bid He would like to know what he can do if he gets sick again, if he cannot get an appt with the doctor quickly HISTORY REVIEWED (electronic chart updated): PAST MEDICAL HISTORY Diagnosis Date Alcohol abuse Alcohol intake above recommended sensible limits (HCC) Stvoy-3-iexzmfimpby deficiency (HCC) 2016 SZ Anxiety Benign essential hypertension Chronic cough Chronic obstructive lung disease (HCC) Very severe Dyslexia for numbers only Essential hypertension Former smoker Sleep apnea PAST SURGICAL HISTORY Procedure Laterality Date INNER EAR SURGERY PROC UNLISTED left ear, tubes, [facility], approx mid 1969' IP 6 MINUTE WALK - 5241 09/02/2020 NASAL SURGERY PROCEDURE [facility], approx 2005 PFT-PRE/POST BRONCHODILATOR 02/25/2014 FAMILY HISTORY Problem Relation Age of Onset other (pulmonary embolism) Mother Arthritis Father No Known Problems Sister Heart Brother Social History Tobacco Use Smoking status: Former Packs/day: 1.00 Years: 32.00 Pack years: 32.00 Types: Cigarettes Start date: 08/14/1983 Quit date: 07/14/2016 Years since quittin.4 Smokeless tobacco: Never Vaping Use Vaping Use: Never used Substance Use Topics Alcohol use: Not Currently Comment: history of alcohol abuse Drug use: Never Comment: no reported history Current Outpatient Medications Medication Sig aspirin, enteric coated (ASPIRIN, ENTERIC COATED) 81 mg EC tablet TAKE ONE TABLET (81 MG) BY MOUTH DAILY. FOR 30 DAYS lactobacillus rhamnosus (CULTURELLE) 15 billion cell capsule TAKE ONE CAPSULE BY MOUTH DAILY. FOR 30 DAYS atorvastatin (LIPITOR) 80 mg tablet TAKE ONE TABLET (80 MG) BY MOUTH DAILY. FOR 30 DAYS losartan (COZAAR) 100 mg tablet Take 1 tablet by mouth once daily. hydroCHLOROthiazide (HYDRODIURIL, ESIDRIX) 25 mg tablet Take 1 tablet by mouth once daily. albuterol (PROVENTIL) 2.5 mg /3 mL (0.083 %) nebulizer solution INHALE THE CONTENTS OF 1 VIAL VIA NEBULIZER EVERY 4 HOURS NEEDED albuterol HFA (VENTOLIN HFA) 90 mcg/actuation inhaler USE 1 OR 2 INHALATIONS EVERY 4 HOURS NEEDED budesonide-formoterol (SYMBICORT) 160-4.5 mcg/actuation inhaler USE 2 INHALATIONS ORALLY TWICE DAILY INSTRUCTED guaiFENesin (MUCINEX) 600 mg 12 hr tablet Take 1 tablet by mouth twice daily. tiotropium bromide (SPIRIVA RESPIMAT) 2.5 mcg/actuation inhaler Inhale 2 Puffs as instructed once daily. predniSONE (DELTASONE) 5 mg tablet Take 1 tablet by mouth once daily. hydrOXYzine HCl (ATARAX) 25 mg tablet Take 1 tablet by mouth three times daily as needed for anxiety. BIPAP Needs new BiPAP machine Use old settings HERBAL THERAPY Herbal supplement called Clear Lungs alpha-1 proteinase inhibitor, human, (PROLASTIN-C) 1,000 mg (+/-)/20 mL Inject 115.92 mL intravenously one time a week. (Patient taking differently: Inject 60 mg/kg/dose intravenously one time a week. Every other week) azithromycin (ZITHROMAX) 250 mg tablet TAKE ONE TABLET (250 MG) BY MOUTH DAILY FOR 3 DAYS (Patient not taking: Reported on 12/09/2022) predniSONE (DELTASONE) 20 mg tablet TAKE TWO TABLETS (40 MG) BY MOUTH DAILY FOR 3 DAYS, THEN ONE TABLET (20 MG) DAILY FOR 3 DAYS, THEN ONE HALF TABLET (10 MG) DAILY FOR 4 DAYS (Patient not taking: Reported on 12/09/2022) No current facility-administered medications for this visit. ALLERGIES Allergen Reactions Solu-Medrol [Methyl* Other: See Comments Passed out in ER after injection in 2017 Trelegy Ellipta [Fl* Other: See Comments Made patient short of breath REVIEW OF SYSTEMS: HEENT: denies SMITH, change in hearing or vision, no other ENT complaints NECK: denies swelling (more content not included)... [facility] 12-09-2022 Miscellaneous Notes Please help assist with scheduling appointment. Thanks. Marcy Agarwal MA Please have him make appt - it can be virtual if needed Kayden Valencia DO Patient's called stating patient woke up this morning at 1 am freezing cold and shivering even though he had 3 blankets on him. States she checked his temperature with two different thermometers and it was 97.5. States he has had a cough with thick green/brown mucous and taste has changed. Patient did a home covid test this morning and it was negative. Patient's oxygen has been running 89-91%. Please advise. Chetna Blanchard MA documented in this encounter [facility] 11-07-2022 Note HNO ID: [id number] Author: Mely Hutton MD Service: ? 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 documented in this encounter [facility] 10-31-2022 History of Present illness Narrative Patient also has dyspnea on exertion and obstructive sleep apnea. Patient reports that he went to [place] for a month and was exposed to apparently high pollen count which was probably result from the heavy rains and sliding that they had in [place]. He was subsequently admitted to the hospital with an exacerbation of his emphysema.His current bronchodilators are Symbicort 160/4.5 at 2 puffs twice a day, Mucinex 600 mg 1 p.o. twice daily and prednisone 5 mg daily. Patient is also on Spiriva Respimat 2.5 mcg 2 inhalations daily and albuterol inhaler at 2 puffs 4 times daily as needed shortness of breath. Patient's oxygen saturation today on arrival to the office was 92% on room air and 96% after resting in the office. Outpatient testing has shown that his saturations remained stable at about 250 feet without oxygen but should be at 2 to 3 L/min with activity. His last room air blood gas shows a pH 7.47 PCO2 of 38, PO2 of 65 and 95% saturated.Patient has a mild cough with some clear sputum production. -[facility] [address] [employer] Work Phone: 10-28-2022 History of Present illness Narrative Patient also has dyspnea on exertion and obstructive sleep apnea. Patient reports that he went to [place] for a month and was exposed to apparently high pollen count which was probably result from the heavy rains and sliding that they had in [place]. He was subsequently admitted to the hospital with an exacerbation of his emphysema.His current bronchodilators are Symbicort 160/4.5 at 2 puffs twice a day, Mucinex 600 mg 1 p.o. twice daily and prednisone 5 mg daily. Patient is also on Spiriva Respimat 2.5 mcg 2 inhalations daily and albuterol inhaler at 2 puffs 4 times daily as needed shortness of breath. Patient's oxygen saturation today on arrival to the office was 92% on room air and 96% after resting in the office. Outpatient testing has shown that his saturations remained stable at about 250 feet without oxygen but should be at 2 to 3 L/min with activity. His last room air blood gas shows a pH 7.47 PCO2 of 38, PO2 of 65 and 95% saturated.Patient has a mild cough with some clear sputum production. -[facility] [address] DO Work Phone: 10-25-2022 Note HNO ID: [id number] Author: Kayden Valencia, DO Service: ? Author Type: Physician Type: Progress Notes Filed: 10/25/2022 9:13 PM Note Text: Subjective HPI He has had a cyst behind his left ear for most of his adult life It occasionally gets infected, and then gets better He wears oxygen on occasion, and the oxygen tubing irritates it The cyst enlarged and started oozing about one week ago His has been putting hydrogen peroxide and witch nayeli on it, and it has opened up and drained It was sore one week ago, feels better now He was in the hospital in [place] for 3 days at [facility] for COPD exacerbation from 10/10 to He had a heart catheterization in [place], and 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 90 tablet 1 hydroCHLOROthiazide (HYDRODIURIL, ESIDRIX) 25 mg tablet Take 1 tablet by mouth once daily. 90 tablet 1 albuterol (PROVENTIL) 2.5 mg /3 mL (0.083 %) nebulizer solution INHALE THE CONTENTS OF 1 VIAL VIA NEBULIZER EVERY 4 HOURS NEEDED 120 mL 11 albuterol HFA (VENTOLIN HFA) 90 mcg/actuation inhaler USE 1 OR 2 INHALATIONS EVERY 4 HOURS NEEDED 1 Each 11 budesonide-formoterol (SYMBICORT) 160-4.5 mcg/actuation inhaler USE 2 INHALATIONS ORALLY TWICE DAILY INSTRUCTED 1 Each 11 guaiFENesin (MUCINEX) 600 mg 12 hr tablet Take 1 tablet by mouth twice daily. 60 tablet 11 tiotropium bromide (SPIRIVA RESPIMAT) 2.5 mcg/actuation inhaler Inhale 2 Puffs as instructed once daily. 1 Each 11 predniSONE (DELTASONE) 5 mg tablet Take 1 tablet by mouth once daily. 30 tablet 11 hydrOXYzine HCl (ATARAX) 25 mg tablet Take 1 tablet by mouth three times daily as needed for anxiety. 90 tablet 11 BIPAP Needs new BiPAP machine Use old settings 1 Each 0 HERBAL THERAPY Herbal supplement called Clear Lungs alpha-1 proteinase inhibitor, human, (PROLASTIN-C) 1,000 mg (+/-)/20 mL Inject 115.92 mL intravenously one time a week. (Patient taking differently: No sig reported) 463.68 mL 11 No current facility-administered medications for this visit. ACTIVE PROBLEM LIST Obstructive Sleep Apnea Syndrome Uncomplicated Alcohol Dependence (Hcc) Hypertension, Essential Former Smoker Smvfg-6-Xnjdkevskzd Deficiency (Hcc) Centrilobular Emphysema (Hcc) Alirio (Generalized Anxiety Disorder) Obesity, Class I, Bmi 30-34.9 Bmi 31.0-31.9,Adult Social History Tobacco Use Smoking status: Former Packs/day: 1.00 Years: 32.00 Pack years: 32.00 Types: Cigarettes Start date: 08/14/1983 Quit date: 07/14/2016 Years since quittin.2 Smokeless tobacco: Never Vaping Use Vaping Use: Never used Substance Use Topics Alcohol use: Not Currently Comment: history of alcohol abuse Drug use: Never Comment: no reported history Family History Problem Relation Age of Onset other (pulmonary embolism) Mother Arthritis Father No Known Problems Sister Heart Brother Reviewed past medical history, family history and surgeries. All medications and supplements were reviewed with the patient. Review of Systems Constitutional: Negative for chills, diaphoresis, fever, malaise/fatigue and weight loss. HENT: Negative for ear pain and hearing loss. Eyes: Negative for blurred vision and double vision. Respiratory: Negative for cough and shortness of breath. Cardiovascular: Negative for chest pain, palpitations and leg swelling. Gastrointestinal: Negative for constipation, diarrhea and heartburn. Genitourinary: Negative for dysuria and frequency. Musculoskeletal: Negative for back pain, falls, joint pain and myalgias. Skin: Negative for itching and rash. Cyst behind left ear Neurological: Negative for dizziness, weakness and headaches. Endo/Heme/Allergies: Does not bruise/bleed easily. Psychiatric/Behavioral: Negative for depression and substance abuse. The patient does not have insomnia. Objective BP 122/70 Pulse 92 Temp 36.6 ?C (97.9 ?F) Resp 18 Wt 105.2 kg (232 lb) SpO2 89% BMI 31.46 kg/m? Physical Exam Constitutional: Appearance: Normal appearance. HENT: Head: Normocephalic and atraumatic. Nose: Nose normal. Mouth/Throat: Mouth: Mucous membranes are moist. Dentition: Normal dentition. Eyes: General: Lids are normal. Extraocular Movements: Extraocular movements intact. Conjunctiva/sclera: Conjunctivae normal. Pupils: Pupils are equal, round, and reactive to light. Neck: Thyroid: No thyroid mass or thyromegaly. Vascular: No carotid bruit. Trachea: Phonation normal. Cardiovascular: Rate and Rhythm: Normal rate and regular rhythm. Heart sounds: Normal heart sounds. No murmur heard. No friction rub. No ga (more content not included)... [facility] 10-25-2022 Instructions Kayden Valencia DO - 10/25/2022 12:07 PM EDT Use an antibiotic ointment on the area 1 to 2 times per day, until you see the skin doctor. documented in this encounter [facility] 10-25-2022 History of Present illness Narrative Subjective HPI He has had a cyst behind his left ear for most of his adult life It occasionally gets infected, and then gets better He wears oxygen on occasion, and the oxygen tubing irritates it The cyst enlarged and started oozing about one week ago His has been putting hydrogen peroxide and witch nayeli on it, and it has opened up and drained It was sore one week ago, feels better now He was in the hospital in [place] for 3 days at [facility] for COPD exacerbation from 10/10 to He had a heart catheterization in [place], and 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 90 tablet 1 hydroCHLOROthiazide (HYDRODIURIL, ESIDRIX) 25 mg tablet Take 1 tablet by mouth once daily. 90 tablet 1 albuterol (PROVENTIL) 2.5 mg /3 mL (0.083 %) nebulizer solution INHALE THE CONTENTS OF 1 VIAL VIA NEBULIZER EVERY 4 HOURS NEEDED 120 mL 11 albuterol HFA (VENTOLIN HFA) 90 mcg/actuation inhaler USE 1 OR 2 INHALATIONS EVERY 4 HOURS NEEDED 1 Each 11 budesonide-formoterol (SYMBICORT) 160-4.5 mcg/actuation inhaler USE 2 INHALATIONS ORALLY TWICE DAILY INSTRUCTED 1 Each 11 guaiFENesin (MUCINEX) 600 mg 12 hr tablet Take 1 tablet by mouth twice daily. 60 tablet 11 tiotropium bromide (SPIRIVA RESPIMAT) 2.5 mcg/actuation inhaler Inhale 2 Puffs as instructed once daily. 1 Each 11 predniSONE (DELTASONE) 5 mg tablet Take 1 tablet by mouth once daily. 30 tablet 11 hydrOXYzine HCl (ATARAX) 25 mg tablet Take 1 tablet by mouth three times daily as needed for anxiety. 90 tablet 11 BIPAP Needs new BiPAP machine Use old settings 1 Each 0 HERBAL THERAPY Herbal supplement called Clear Lungs alpha-1 proteinase inhibitor, human, (PROLASTIN-C) 1,000 mg (+/-)/20 mL Inject 115.92 mL intravenously one time a week. (Patient taking differently: No sig reported) 463.68 mL 11 No current facility-administered medications for this visit. ACTIVE PROBLEM LIST Obstructive Sleep Apnea Syndrome Uncomplicated Alcohol Dependence (Hcc) Hypertension, Essential Former Smoker Nckgi-6-Jutodiknoam Deficiency (Hcc) Centrilobular Emphysema (Hcc) Alirio (Generalized Anxiety Disorder) Obesity, Class I, Bmi 30-34.9 Bmi 31.0-31.9,Adult Social History Tobacco Use Smoking status: Former Packs/day: 1.00 Years: 32.00 Pack years: 32.00 Types: Cigarettes Start date: 08/14/1983 Quit date: 07/14/2016 Years since quittin.2 Smokeless tobacco: Never Vaping Use Vaping Use: Never used Substance Use Topics Alcohol use: Not Currently Comment: history of alcohol abuse Drug use: Never Comment: no reported history Family History Problem Relation Age of Onset other (pulmonary embolism) Mother Arthritis Father No Known Problems Sister Heart Brother Reviewed past medical history, family history and surgeries. All medications and supplements were reviewed with the patient. Review of Systems Constitutional: Negative for chills, diaphoresis, fever, malaise/fatigue and weight loss. HENT: Negative for ear pain and hearing loss. Eyes: Negative for blurred vision and double vision. Respiratory: Negative for cough and shortness of breath. Cardiovascular: Negative for chest pain, palpitations and leg swelling. Gastrointestinal: Negative for constipation, diarrhea and heartburn. Genitourinary: Negative for dysuria and frequency. Musculoskeletal: Negative for back pain, falls, joint pain and myalgias. Skin: Negative for itching and rash. Cyst behind left ear Neurological: Negative for dizziness, weakness and headaches. Endo/Heme/Allergies: Does not bruise/bleed easily. Psychiatric/Behavioral: Negative for depression and substance abuse. The patient does not have insomnia. Objective BP 122/70 Pulse 92 Temp 36.6 C (97.9 F) Resp 18 Wt 105.2 kg (232 lb) SpO2 89% BMI 31.46 kg/m Physical Exam Constitutional: Appearance: Normal appearance. HENT: Head: Normocephalic and atraumatic. Nose: Nose normal. Mouth/Throat: Mouth: Mucous membranes are moist. Dentition: Normal dentition. Eyes: General: Lids are normal. Extraocular Movements: Extraocular movements intact. Conjunctiva/sclera: Conjunctivae normal. Pupils: Pupils are equal, round, and reactive to light. Neck: Thyroid: No thyroid mass or thyromegaly. Vascular: No carotid bruit. Trachea: Phonation normal. Cardiovascular: Rate and Rhythm: Normal rate and regular rhythm. Heart sounds: Normal heart sounds. No murmur heard. No friction rub. No gallop. Pulmonary: Effort: Pulmonary effort is normal. Breath sounds: Normal breath sounds. No wheezing or rales. Abdominal: General: Bowel sounds are normal. There is no distension. Palpations: Abdomen is soft. There is no mass. Tenderness: There is no abdominal tenderness. Musculoskeletal: General: No swelling or tenderness. Normal range of motion. Cervical back: Normal range of motion and neck supple. No edema. Lymphadenopathy: Cervical: No cervical adenopathy. Skin: General: Skin is warm and dry. Findings: No erythema or rash. Nails: There is no clubbing. Comments: 5 mm x 75 mm lesion behind left ear with irregular margins and rolled edges, scant purulent drainage Neurological: Mental Status: He is alert and oriented to person, place, and time. Cranial Nerves: No cranial nerve deficit. Motor: Motor function is intact. Coordination: Coordination normal. Gait: Gait is intact. Psychiatric: Attention and Perception: Attention normal. Mood and Affect: Mood and affect normal. Speech: Speech normal. Behavior: Behavior normal. Behavior is cooperative. Thought Content: Thought content normal. Cognition and Memory: Cognition and memory normal. Judgment: Judgment normal. ASSESSMENT/PLAN: 1. Dermoid cyst of left ear - ICD9: 216.2, ICD10: D23.22 Pt advised to stop using witch nayeli and hydrogen peroxide, and now just use antibiotic ointment on the area twice a day until he sees the electronic installer - CONSULT TO DERMATOLOGY - Denise Sharp DO documented in this encounter [facility] 10-10-2022 History of Present illness Narrative Patient is a 57-year-old former smoker male with extensive prior medical history including COPD (sometimes uses night oxygen), alpha 1 anti-trypsin deficiency, hypoxemia, dyspnea on exertion, obstructive sleep apnea on CPAP. The patient had a NSTEMI on October 10, 2022 in [place], which showed mild nonobstructive heart disease and and was referred for cardiology assessment.The patient states that he started to have shortness of breath while driving on October 10 in [place], his saturation was 79%, was referred to the emergency department, and upon arrival his O2 saturation was about 92% on room air. He received nebulized albuterol with improvement of his symptoms. However, his troponins went up [id number]. He was diagnosed with NSTEMI and sent today [facility]. His cinecoronariography ([facility]) showed mild nonobstructive disease(nondominant RCA with 25% obstruction), was started on aspirin and Lipitor.His chest CT showed no signs of pulmonary embolism and showed moderate centrilobular emphysema.His echocardiogram after the NSTEMI showed normal ejection fraction and no wall motion abnormalities.His EKG is showing normal sinus rhythm with old anterior infarct.The patient is currently completely asymptomatic. He denies chest pain, leg edema, lightheadedness, headaches, nausea, vomiting, abdominal pain or syncopal episodes. He understands that his shortness of breath is due to his severe COPD. [id number] [address] Work Phone: 09-13-2022 Miscellaneous Notes Renee CPAP/BIPA Order placed in Dr. Valencia green folder to be signed. Chetna Blanchard MA documented in this encounter [facility] 09-07-2022 Miscellaneous Notes All information has been faxed. Patient's informed. Chetna Blanchard MA Addended by: KAYDEN VALENCIA on: 09/07/2022 01:49 PM Modules accepted: Orders Order printed - please fax with other items requested below Kayden Valencia DO Patients lm on requesting cpap large mask. She states he needs airfit S20 size large.she states [facility] along with sleep study, demos and insurance. She is asking to be done today. Please advise. Marcy Agarwal MA wants a call when completed. documented in this encounter [facility] 09-02-2022 History of Present illness Narrative Patient was seen today in the office to review his lab and pulmonary function results. His chest x-ray was clear. His pulmonary function study from 09/02/2022 showed very severe obstructive disease with significant improvement postbronchodilator. There was a significant improvement in airway resistance. There was a moderate reduction in gas transfer. These results would be consistent with emphysema. His arterial blood gas on room air showed a pH 7.47 PCO2 of 38 PO2 of 65 and 95% oxygen saturation. His SST showed that he was able to walk 250 feet before his saturation decreased into the mid 80s. He was subsequently titrated on 2 to 3 L of oxygen and at 3 L he was able to walk 1200 feet. His alpha-1 results are still pending.I discussed with the patient and his the results of the testing and it was not clear with the patient's insurance and prior care that he received through [facility] whether they would cover part of all he would want as far as supplemental portable oxygen. There is specifically interested in working with [facility]. I subsequently contacted the pharmacy myself and it appears that there may be a good chance of them covering his oxygen needs providing there is not a conflict in who may be covering some of his other oxygen. He reports having an oxygen concentrator that he uses with his CPAP device. -[facility] [address] DO Work Phone: 09-02-2022 History of Present illness Narrative Patient was seen today in the office to review his lab and pulmonary function results. His chest x-ray was clear. His pulmonary function study from 09/02/2022 showed very severe obstructive disease with significant improvement postbronchodilator. There was a significant improvement in airway resistance. There was a moderate reduction in gas transfer. These results would be consistent with emphysema. His arterial blood gas on room air showed a pH 7.47 PCO2 of 38 PO2 of 65 and 95% oxygen saturation. His SST showed that he was able to walk 250 feet before his saturation decreased into the mid 80s. He was subsequently titrated on 2 to 3 L of oxygen and at 3 L he was able to walk 1200 feet. His alpha-1 results are still pending.I discussed with the patient and his the results of the testing and it was not clear with the patient's insurance and prior care that he received through [facility] whether they would cover part of all he would want as far as supplemental portable oxygen. There is specifically interested in working with [facility]. I subsequently contacted the pharmacy myself and it appears that there may be a good chance of them covering his oxygen needs providing there is not a conflict in who may be covering some of his other oxygen. He reports having an oxygen concentrator that he uses with his CPAP device. -[facility] [address] DO Work Phone: 08-24-2022 Note HNO ID: [id number] Author: Chetna Blanchard MA Service: ? Author Type: [employer] Worker Type: Progress Notes Filed: 08/24/2022 1:53 PM Note Text: Immunizations were given as ordered. Vaccination information sheet(s) given. Chetna Blanchard MA [facility] 08-24-2022 History of Present illness Narrative Immunizations were given as ordered. Vaccination information sheet(s) given. Chetna Blanchard MA documented in this encounter [facility] 08-16-2022 Note HNO ID: [id number] Author: Kayden Valencia, DO Service: ? Author Type: Physician Type: Progress Notes Filed: 08/16/2022 8:44 PM Note Text: SUBJECTIVE: 57 year old male for annual routine checkup. I have fully reviewed the past medical, surgical, social and family history and updated the Histories section of [facility]. He has a history of hypertension, COPD He is under the care of Dr. Hutton, hedge fund accountant Dr. Hutton is recommending a lung transplant, but he is thinking about that He had a sore throat for about one week in July He is feeling much better ALLERGIES Allergen Reactions Solu-Medrol [Methyl* Other: See Comments Passed out in ER after injection in 2017 Carmel Haile [Fl* Other: See Comments Made patient short of breath Current Outpatient Medications Medication Sig Dispense Refill albuterol (PROVENTIL) 2.5 mg /3 mL (0.083 %) nebulizer solution INHALE THE CONTENTS OF 1 VIAL VIA NEBULIZER EVERY 4 HOURS NEEDED 120 mL 11 albuterol HFA (VENTOLIN HFA) 90 mcg/actuation inhaler USE 1 OR 2 INHALATIONS EVERY 4 HOURS NEEDED 1 Each 11 budesonide-formoterol (SYMBICORT) 160-4.5 mcg/actuation inhaler USE 2 INHALATIONS ORALLY TWICE DAILY INSTRUCTED 1 Each 11 guaiFENesin (MUCINEX) 600 mg 12 hr tablet Take 1 tablet by mouth twice daily. 60 tablet 11 tiotropium bromide (SPIRIVA RESPIMAT) 2.5 mcg/actuation inhaler Inhale 2 Puffs as instructed once daily. 1 Each 11 predniSONE (DELTASONE) 5 mg tablet Take 1 tablet by mouth once daily. 30 tablet 11 hydrOXYzine HCl (ATARAX) 25 mg tablet Take 1 tablet by mouth three times daily as needed for anxiety. 90 tablet 11 losartan (COZAAR) 100 mg tablet TAKE 1 TABLET ONCE DAILY 90 tablet 1 hydroCHLOROthiazide (HYDRODIURIL, ESIDRIX) 25 mg tablet Take 1 tablet by mouth once daily. 90 tablet 1 BIPAP Needs new BiPAP machine Use old settings 1 Each 0 HERBAL THERAPY Herbal supplement called Clear Lungs alpha-1 proteinase inhibitor, human, (PROLASTIN-C) 1,000 mg (+/-)/20 mL Inject 115.92 mL intravenously one time a week. (Patient taking differently: No sig reported) 463.68 mL 11 Current Facility-Administered Medications Medication Dose Route Frequency Provider Last Rate Last Admin perflutren lipid microspheres 1.3 mL in NaCl (PF) 0.9% 10 mL injection (DEFINITY) INTRAVENOUS DIRECTED PRN Devi Solis PA-C sodium chloride 0.9 % (flush) 10 mL (BD POSIFLUSH) 10 mL INTRAVENOUS DIRECTED PRN Devi Solis PA-C ACTIVE PROBLEM LIST Obstructive Sleep Apnea Syndrome Uncomplicated Alcohol Dependence (Hcc) Hypertension, Essential Former Smoker Cough Rksjk-9-Oqromniwioc Deficiency (Hcc) Centrilobular Emphysema (Hcc) Alirio (Generalized Anxiety Disorder) Social History Tobacco Use Smoking status: Former Packs/day: 1.00 Years: 32.00 Pack years: 32.00 Types: Cigarettes Start date: 08/14/1983 Quit date: 07/14/2016 Years since quittin.0 Smokeless tobacco: Never Vaping Use Vaping Use: Never used Substance Use Topics Alcohol use: Not Currently Comment: history of alcohol abuse Drug use: Never Comment: no reported history Family History Problem Relation Age of Onset other (pulmonary embolism) Mother Arthritis Father No Known Problems Sister Heart Brother Reviewed past medical history, family history and surgeries. All medications and supplements were reviewed with the patient. REVIEW OF SYSTEMS GENERAL: No weight loss, malaise or fevers HEENT: Negative for frequent or significant headaches, No changes in hearing or vision, no nose bleeds or other nasal problems NECK: Negative for lumps, goiter, pain and significant neck swelling RESPIRATORY: Negative for cough, hemoptysis, wheezing, COPD, dyspnea or shortness of breath CARDIOVASCULAR: Negative for chest pain, leg swelling, hypertension, CHF or palpitations GI: No nausea, vomiting, or diarrhea : No history of dysuria, frequency or incontinence MUSCULOSKELETAL: Negative for joint pain or swelling, back pain or muscle pain SKIN: Negative for lesions, rash, and itching PSYCH: Negative for sleep disturbance, mood disorder and recent psychosocial stressors HEMATOLOGY/LYMPHOLOGY: Negative for prolonged bleeding, bruising easily or swollen nodes ENDOCRINE: Negative for cold or heat intolerance, polyuria, polydipsia and goiter NEURO: No history of headaches, syncope, paralysis, seizures or tremors PHYSICAL EXAMINATION: BP 126/76 Pulse 105 Temp 36.6 ?C (97.8 ?F) Resp 18 Wt 103.7 kg (228 lb 9.6 oz) SpO2 93% BMI 31.00 kg/m? General appearance: Well appearing, alert, in no acute distress, well-hydrated, well nourished. Skin: Skin color, texture, turgor normal, no suspicious rashes or lesions Head: Normocephalic, no masses, lesions, tenderness or abnormalities Eyes: Anicteric sclera. Pupils are equally round and reactive to light. Extraocular movements are intact. Ears: External ears normal, canals clear (more content not included)... [facility] 08-16-2022 History of Present illness Narrative SUBJECTIVE: 57 year old male for annual routine checkup. I have fully reviewed the past medical, surgical, social and family history and updated the Histories section of [email or web address]. He has a history of hypertension, COPD He is under the care of Dr. Hutton, hedge fund accountant Dr. Hutton is recommending a lung transplant, but he is thinking about that He had a sore throat for about one week in July He is feeling much better ALLERGIES Allergen Reactions Solu-Medrol [Methyl* Other: See Comments Passed out in ER after injection in 2017 Carmel Haile [Fl* Other: See Comments Made patient short of breath Current Outpatient Medications Medication Sig Dispense Refill albuterol (PROVENTIL) 2.5 mg /3 mL (0.083 %) nebulizer solution INHALE THE CONTENTS OF 1 VIAL VIA NEBULIZER EVERY 4 HOURS NEEDED 120 mL 11 albuterol HFA (VENTOLIN HFA) 90 mcg/actuation inhaler USE 1 OR 2 INHALATIONS EVERY 4 HOURS NEEDED 1 Each 11 budesonide-formoterol (SYMBICORT) 160-4.5 mcg/actuation inhaler USE 2 INHALATIONS ORALLY TWICE DAILY INSTRUCTED 1 Each 11 guaiFENesin (MUCINEX) 600 mg 12 hr tablet Take 1 tablet by mouth twice daily. 60 tablet 11 tiotropium bromide (SPIRIVA RESPIMAT) 2.5 mcg/actuation inhaler Inhale 2 Puffs as instructed once daily. 1 Each 11 predniSONE (DELTASONE) 5 mg tablet Take 1 tablet by mouth once daily. 30 tablet 11 hydrOXYzine HCl (ATARAX) 25 mg tablet Take 1 tablet by mouth three times daily as needed for anxiety. 90 tablet 11 losartan (COZAAR) 100 mg tablet TAKE 1 TABLET ONCE DAILY 90 tablet 1 hydroCHLOROthiazide (HYDRODIURIL, ESIDRIX) 25 mg tablet Take 1 tablet by mouth once daily. 90 tablet 1 BIPAP Needs new BiPAP machine Use old settings 1 Each 0 HERBAL THERAPY Herbal supplement called Clear Lungs alpha-1 proteinase inhibitor, human, (PROLASTIN-C) 1,000 mg (+/-)/20 mL Inject 115.92 mL intravenously one time a week. (Patient taking differently: No sig reported) 463.68 mL 11 Current Facility-Administered Medications Medication Dose Route Frequency Provider Last Rate Last Admin perflutren lipid microspheres 1.3 mL in NaCl (PF) 0.9% 10 mL injection (DEFINITY) INTRAVENOUS DIRECTED PRN Devi Solis PA-C sodium chloride 0.9 % (flush) 10 mL (BD POSIFLUSH) 10 mL INTRAVENOUS DIRECTED PRN Devi Solis PA-C ACTIVE PROBLEM LIST Obstructive Sleep Apnea Syndrome Uncomplicated Alcohol Dependence (Hcc) Hypertension, Essential Former Smoker Cough Ajrtl-6-Shxaprsohqi Deficiency (Hcc) Centrilobular Emphysema (Hcc) Alirio (Generalized Anxiety Disorder) Social History Tobacco Use Smoking status: Former Packs/day: 1.00 Years: 32.00 Pack years: 32.00 Types: Cigarettes Start date: 08/14/1983 Quit date: 07/14/2016 Years since quittin.0 Smokeless tobacco: Never Vaping Use Vaping Use: Never used Substance Use Topics Alcohol use: Not Currently Comment: history of alcohol abuse Drug use: Never Comment: no reported history Family History Problem Relation Age of Onset other (pulmonary embolism) Mother Arthritis Father No Known Problems Sister Heart Brother Reviewed past medical history, family history and surgeries. All medications and supplements were reviewed with the patient. REVIEW OF SYSTEMS GENERAL: No weight loss, malaise or fevers HEENT: Negative for frequent or significant headaches, No changes in hearing or vision, no nose bleeds or other nasal problems NECK: Negative for lumps, goiter, pain and significant neck swelling RESPIRATORY: Negative for cough, hemoptysis, wheezing, COPD, dyspnea or shortness of breath CARDIOVASCULAR: Negative for chest pain, leg swelling, hypertension, CHF or palpitations GI: No nausea, vomiting, or diarrhea : No history of dysuria, frequency or incontinence MUSCULOSKELETAL: Negative for joint pain or swelling, back pain or muscle pain SKIN: Negative for lesions, rash, and itching PSYCH: Negative for sleep disturbance, mood disorder and recent psychosocial stressors HEMATOLOGY/LYMPHOLOGY: Negative for prolonged bleeding, bruising easily or swollen nodes ENDOCRINE: Negative for cold or heat intolerance, polyuria, polydipsia and goiter NEURO: No history of headaches, syncope, paralysis, seizures or tremors PHYSICAL EXAMINATION: BP 126/76 Pulse 105 Temp 36.6 C (97.8 F) Resp 18 Wt 103.7 kg (228 lb 9.6 oz) SpO2 93% BMI 31.00 kg/m General appearance: Well appearing, alert, in no acute distress, well-hydrated, well nourished. Skin: Skin color, texture, turgor normal, no suspicious rashes or lesions Head: Normocephalic, no masses, lesions, tenderness or abnormalities Eyes: Anicteric sclera. Pupils are equally round and reactive to light. Extraocular movements are intact. Ears: External ears normal, canals clear Nose/Sinuses: Nares normal, septum midline, mucosa normal, no drainage or sinus tenderness Oropharynx: Lips, mucosa, and tongue normal, teeth and gums normal, oropharynx normal Neck: Supple, no adenopathy; thyroid symmetric, normal size, no bruits Back: Normal exam Lungs: Lungs clear to auscultation. No wheezing, rhonchi, rales. Heart: RRR without murmur, gallop, or rubs. No ectopy Abdomen: Normal abdominal exam, Abdomen soft, non-tender. Bowel sounds normal. No masses, organomegaly Extremities: No deformities, edema, skin discoloration, clubbing or cyanosis. Good capillary refill. Musculoskeletal: No joint swelling, deformity, or tenderness Peripheral pulses: Normal Neuro: Gait normal. Reflexes normal and symmetric. Sensation grossly intact. ASSESSMENT/PLAN: 1. Well adult 2. Hypertension, essential - ICD9: 401.9, ICD10: I10 (primary diagnosis) - good control - Recommended regular aerobic exercise. - Recommend home blood pressure monitoring, to bring results in on next visit - Goal of BP <130/80 - HYDROCHLOROTHIAZIDE 25 MG TABLET 3. Centrilobular emphysema (HCC) - ICD9: 492.8, ICD10: J43.2 Under the care of hedge fund accountant, Dr. Hutton 4. Obesity, Class I, BMI 30-34.9 - ICD9: 278.00, ICD10: E66.9 Lifestyle modification recommended 5. BMI 31.0-31.9,adult - ICD9: V85.31, ICD10: Z68.31 Lifestyle modification recommended Kayden Valencia DO documented in this encounter [facility] 07-22-2022 Note HNO ID: [id number] Author: Mely Hutton MD Service: ? Author Type: Physician Type: Progress Notes Filed: 07/22/2022 4:55 PM Note Text: . 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 Therapy consists of triple inhaler therapy, 5 mg of prednisone. At [facility] due to cost. Approved for Medicaid and permanent disability. Previously recommended Pulmonary Rehab, transplant evaluation, and chronic azithromycin. He continues to feel better when he is on low-dose oral steroids. He has dyspnea on exertion but is not severely limited in his activities. No current wheezing. He has chronic cough with some mucus production. No hemoptysis or chest pain. He was contacted by [facility] for pulmonary rehab last year but apparently there was no room in the current told that he did begin but that did not happen. He recently received his Prevnar 20 vaccination but has not received his influenza vaccination. Pending COVID booster. DATA: COPD Assessment Test I never cough 0 1 2 3 4 5 I cough all the time; Score 4 I have no phlegm 0 1 2 3 4 5 My chest is completely full of phlegm; Score 3 My chest does not feel tight at all 0 1 2 3 4 5 My chest chest feels very tight; Score 0 When I walk up a hill or one flight of stairs I am not breathless 0 1 2 3 4 5 When I walk up a hill or one flight or stairs I am very breathless; Score 3 I am not limited doing any activities at home 0 1 2 3 4 5 I am very limited doing activities at home; Score 3 I am confident leaving my home despite my lung condition 0 1 2 3 4 5 I am not at all confident leaving my home because of my lung condition; Score 1 I sleep soundly 0 1 2 3 4 5 don't sleep soundly because of my lungs; Score 2 I have lots of energy 0 1 2 3 4 5 I have no energy at all; Score 3 Total Score: 19 Imaging / Diagnostic Studies: DATE OF EXAM: Apr 29 2022 12:51PM [facility] 0541 - CT CHEST WO IVCON / PROCEDURE REASON: Lung nodules EXAMINATION: CHEST CT WITHOUT CONTRAST CLINICAL HISTORY: Lung nodules Comparison: Chest CT June 25, 2021 RESULT: Limitations: None. Lines, tubes, and devices: None. Lung parenchyma and airways: Mild emphysematous changes. No areas of consolidation or lung mass. Stable 2 mm pulmonary nodule right lower lobe (2:382). Pleural space: No pleural effusion. No pleural thickening. Lower neck, lymph nodes, and mediastinum: The imaged thyroid gland is normal. No lymphadenopathy in the supraclavicular, axillary, mediastinal, or hilar regions. Heart, pericardium, and thoracic vessels: The thoracic aorta and main pulmonary artery are normal in caliber. The cardiac chambers are normal in size. No coronary artery atherosclerotic calcifications are noted, although the study is not optimized for coronary assessment. No pericardial effusion or thickening. Bones and soft tissues: No destructive bone lesion. Chest wall is unremarkable. Upper abdomen: No abnormality in the imaged upper abdomen. IMPRESSION: There is a 2 mm pulmonary nodule in the right lower lobe stable in size from prior chest CT. A follow-up chest CT in one year is recommended to assess for stability of this nodule. Mild emphysematous changes. I personally reviewed the images and agree with the above assessment PAST MEDICAL HISTORY Diagnosis Date Alcohol abuse Alcohol intake above recommended sensible limits (HCC) Nbpda-2-nsdihvjbnvf deficiency (HCC) 2017 SZ Anxiety Benign essential hypertension Chronic cough Chronic obstructive lung disease (HCC) Very severe Dyslexia for numbers only Essential hypertension Former smoker Sleep apnea ALLERGIES Allergen Reactions Solu-Medrol [Methyl* Other: See Comments Passed out in ER after injection in 2017 Trealshell Haile [Fl* Other: See Comments Made patient short of breath HERBAL THERAPYHerbal supplement called Clear Lungs Disp: Rfl: albuterol (PROVENTIL) 2.5 mg /3 mL (0.083 %) nebulizer solutionINHALE THE CONTENTS OF 1 VIAL VIA NEBULIZER EVERY 4 HOURS NEEDEDDisp: 120 mLRfl: 11 albuterol HFA (VENTOLIN HFA) 90 mcg/actuation inhalerUSE 1 OR 2 INHALATIONS EVERY 4 HOURS NEEDEDDisp: 1 EachRfl: 11 budesonide-formoterol (SYMBICORT) 160-4.5 mcg/actuation inhalerUSE 2 INHALATIONS ORALLY TWICE DAILY INSTRUCTEDDisp: 1 EachRfl: 11 guaiFENesin (MUCINEX) 600 mg 12 hr tabletTake 1 tablet by mouth twice daily.Disp: 60 tabletRfl: 11 tiotropium bromide (SPIRIVA RESPIMAT) 2.5 mcg/actuation inhalerInhale 2 Puffs as instructed once daily.Disp: 1 EachRfl: 11 predniSONE (DELTASONE) 5 mg tabletTake 1 tablet by mouth once daily.Dis (more content not included)... [facility] 07-22-2022 History of Present illness Narrative . 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 Therapy consists of triple inhaler therapy, 5 mg of prednisone. At [facility] due to cost. Approved for Medicaid and permanent disability. Previously recommended Pulmonary Rehab, transplant evaluation, and chronic azithromycin. He continues to feel better when he is on low-dose oral steroids. He has dyspnea on exertion but is not severely limited in his activities. No current wheezing. He has chronic cough with some mucus production. No hemoptysis or chest pain. He was contacted by [facility] for pulmonary rehab last year but apparently there was no room in the current told that he did begin but that did not happen. He recently received his Prevnar 20 vaccination but has not received his influenza vaccination. Pending COVID booster. DATA: COPD Assessment Test I never cough 0 1 2 3 4 5 I cough all the time; Score 4 I have no phlegm 0 1 2 3 4 5 My chest is completely full of phlegm; Score 3 My chest does not feel tight at all 0 1 2 3 4 5 My chest chest feels very tight; Score 0 When I walk up a hill or one flight of stairs I am not breathless 0 1 2 3 4 5 When I walk up a hill or one flight or stairs I am very breathless; Score 3 I am not limited doing any activities at home 0 1 2 3 4 5 I am very limited doing activities at home; Score 3 I am confident leaving my home despite my lung condition 0 1 2 3 4 5 I am not at all confident leaving my home because of my lung condition; Score 1 I sleep soundly 0 1 2 3 4 5 don't sleep soundly because of my lungs; Score 2 I have lots of energy 0 1 2 3 4 5 I have no energy at all; Score 3 Total Score: 19 Imaging / Diagnostic Studies: DATE OF EXAM: Apr 29 2022 12:51PM [facility] 0541 - CT CHEST WO IVCON / PROCEDURE REASON: Lung nodules EXAMINATION: CHEST CT WITHOUT CONTRAST CLINICAL HISTORY: Lung nodules Comparison: Chest CT June 25, 2021 RESULT: Limitations: None. Lines, tubes, and devices: None. Lung parenchyma and airways: Mild emphysematous changes. No areas of consolidation or lung mass. Stable 2 mm pulmonary nodule right lower lobe (2:382). Pleural space: No pleural effusion. No pleural thickening. Lower neck, lymph nodes, and mediastinum: The imaged thyroid gland is normal. No lymphadenopathy in the supraclavicular, axillary, mediastinal, or hilar regions. Heart, pericardium, and thoracic vessels: The thoracic aorta and main pulmonary artery are normal in caliber. The cardiac chambers are normal in size. No coronary artery atherosclerotic calcifications are noted, although the study is not optimized for coronary assessment. No pericardial effusion or thickening. Bones and soft tissues: No destructive bone lesion. Chest wall is unremarkable. Upper abdomen: No abnormality in the imaged upper abdomen. IMPRESSION: There is a 2 mm pulmonary nodule in the right lower lobe stable in size from prior chest CT. A follow-up chest CT in one year is recommended to assess for stability of this nodule. Mild emphysematous changes. I personally reviewed the images and agree with the above assessment PAST MEDICAL HISTORY Diagnosis Date Alcohol abuse Alcohol intake above recommended sensible limits (HCC) Kxhvs-9-fgpczutbphz deficiency (HCC) 2017 SZ Anxiety Benign essential hypertension Chronic cough Chronic obstructive lung disease (HCC) Very severe Dyslexia for numbers only Essential hypertension Former smoker Sleep apnea ALLERGIES Allergen Reactions Solu-Medrol [Methyl* Other: See Comments Passed out in ER after injection in 2017 Carmel Haile [Fl* Other: See Comments Made patient short of breath HERBAL THERAPY^Herbal supplement called Clear Lungs ^Disp: ^Rfl: albuterol (PROVENTIL) 2.5 mg /3 mL (0.083 %) nebulizer solution^INHALE THE CONTENTS OF 1 VIAL VIA NEBULIZER EVERY 4 HOURS NEEDED^Disp: 120 mL^Rfl: 11 albuterol HFA (VENTOLIN HFA) 90 mcg/actuation inhaler^USE 1 OR 2 INHALATIONS EVERY 4 HOURS NEEDED^Disp: 1 Each^Rfl: 11 budesonide-formoterol (SYMBICORT) 160-4.5 mcg/actuation inhaler^USE 2 INHALATIONS ORALLY TWICE DAILY INSTRUCTED^Disp: 1 Each^Rfl: 11 guaiFENesin (MUCINEX) 600 mg 12 hr tablet^Take 1 tablet by mouth twice daily.^Disp: 60 tablet^Rfl: 11 tiotropium bromide (SPIRIVA RESPIMAT) 2.5 mcg/actuation inhaler^Inhale 2 Puffs as instructed once daily.^Disp: 1 Each^Rfl: 11 predniSONE (DELTASONE) 5 mg tablet^Take 1 tablet by mouth once daily.^Disp: 30 tablet^Rfl: 11 hydrOXYzine HCl (ATARAX) 25 mg tablet^Take 1 tablet by mouth three times daily as needed for anxiety.^Disp: 90 tablet^Rfl: 11 losartan (COZAAR) 100 mg tablet^TAKE 1 TABLET ONCE DAILY^Disp: 90 tablet^Rfl: 1 hydroCHLOROthiazide (HYDRODIURIL, ESIDRIX) 25 mg tablet^Take 1 tablet by mouth once daily.^Disp: 90 tablet^Rfl: 1 BIPAP^Needs new BiPAP machine Use old settings^Disp: 1 Each^Rfl: 0 alpha-1 proteinase inhibitor, human, (PROLASTIN-C) 1,000 mg (+/-)/20 mL^Inject 115.92 mL intravenously one time a week.^Disp: 463.68 mL^Rfl: 11 (Patient taking differently: No sig reported) Social History Tobacco Use Smoking status: Former Packs/day: 1.00 Years: 32.00 Pack years: 32.00 Types: Cigarettes Start date: 08/14/1983 Quit date: 07/14/2016 Years since quittin.0 Smokeless tobacco: Never Vaping Use Vaping Use: Never used Substance Use Topics Alcohol use: Not Currently Comment: history of alcohol abuse Drug use: Never Comment: no reported history FAMILY HISTORY Problem Relation Age of Onset other (pulmonary embolism) Mother Arthritis Father No Known Problems Sister Heart Brother PAST SURGICAL HISTORY Procedure Laterality Date INNER EAR SURGERY PROC UNLISTED left ear, tubes, [facility], approx mid 1970's IP 6 MINUTE WALK - 5241 09/02/2020 NASAL SURGERY PROCEDURE [facility], approx 2005 PFT-PRE/POST BRONCHODILATOR 02/25/2014 PMH, Social history, family history and surgical history reviewed and updated in EMR REVIEW OF SYSTEMS: CONSTITUTIONAL: No fevers, chills, nightsweats, unintended weight loss HEENT: Denies nasal congestion/sinus symptoms, allergy problems. EYES: No diplopia or blurry vision. CARDIOVASCULAR: No chest pain, palpitations, orthopnea, PND, edema. PULM: See HPI GI: No dysphagia/odynophagia, problematic reflux, abdominal pain. NEURO: No new balance problems, peripheral weakness/paresthesias or numbness of concern. MUSC-SKEL: No joint pain, swelling, or erythema. PSY: No concerns regarding depression. Anxiety INTEGUMENTARY: No new skin changes or rashes PHYSICAL EXAMINATION: BP 128/84 Pulse 92 Resp 15 Wt 225 lb 5 oz (102.2kg) SpO2 93% General Appearance: Age-appropriate male, NAD mild cushingoid Skin: Skin color, texture, turgor normal, no suspicious rashes or lesions. Head: Normocephalic, no masses, lesions, tenderness or abnormalities. Eyes: Sclera, conjunctiva normal Oropharynx: Adequate dentition, no oral lesions or thrush Neck: No JVD, no masses, no adenopathy Lungs: Not labored, very diminished breath sounds, no wheezes or crackle Heart: Regular rate and rhythm, no murmurs or gallops Extremities: No edema or clubbing Assessment/Plan: 1. Very severe COPD GOLD stage 4 -Continue current inhaled therapy. Refilled his prescriptions -Recommending discontinuation of oral prednisone but patient reluctant to do so -Resend referral for pulmonary rehab -Patient not certain he wants to pursue potential transplant evaluation -Needs a new nebulizer -Continue low-dose chest CT for cancer screening -Flu vaccine 2. Alpha-1 antitrypsin deficiency, SZ -Restart infusion now that he is on Medicaid 3. Dependence on nocturnal oxygen -When patient qualified for his oxygen, he did not want to pay for a rental so he purchased his own concentrator which is now not working -Since he currently has insurance will need a reassessment for prescription to [facility]. Nocturnal oximetry order sent to [facility] 4. Current use of chronic oral steroids -See #1 Mely Hutton MD [facility] [place] documented in this encounter [facility] 07-22-2022 Miscellaneous Notes Pt. notified and states he doesn't;t have sore throat any more. Marcy Agarwal MA Please call pt - blood work is negative for any viruses that may cause a sore throat. Does he still have a sore throat? Kayden Valencia DO documented in this encounter [facility] 07-22-2022 Miscellaneous Notes notified. Marcy Agarwal MA Please call pt - blood work shows that white blood cells are a little elevated. I will order repeat CBC - order attached. Rest of blood work is acceptable. Kayden Valencia DO documented in this encounter [facility] 06-28-2022 Note Patient Outreach (AG ACM) CLARKE BROWN ([id number]) 1965 M Date Time Provider Department 06/28/22 KAYDEN VALENCIA [facility] During your visit today, we recorded the following information about you: Allergies As of Date: 06/28/2022 Noted Allergy Reaction SOLU-MEDROL (METHYLPREDNISOLONE S*07/01/2021 14 - Other: See Comments Comments: Passed out in ER after injection in 2017 TRELEGY ELLIPTA (FLUTICASONE-UMEC*06/23/2021 14 - Other: See Comments Comments: Made patient short of breath Date Reviewed: 03/18/2022 Reviewed by: Mely Hutton MD - Fully Assessed Primary Visit Diagnosis:Screening for prostate cancer [Z12.5] Other Visit Diagnoses:Hypertension, essential [I10] Medication management [Z79.899] Order(s):BASIC METABOLIC PNL [SQBMP] Order #: [id number] FUTURE HGB A1C [SVLNB9J] Order #: [id number] FUTURE SCHEDULE LAB TESTING [[id number]] Order #: [id number] FUTURE CBC [SQCBC] Order #: [id number] FUTURE LIPID PANEL BASIC [SQLIPB] Order #: [id number] FUTURE PSA/PROSTSPECAG SCRN [SQPSAS1] Order #: [id number] FUTURE Prescriptions as of 06/28/2022 - albuterol HFA (VENTOLIN HFA) 90 mcg/actuation inhaler USE 1 OR 2 INHALATIONS EVERY 4 HOURS NEEDED - budesonide-formoterol (SYMBICORT) 160-4.5 mcg/actuation inhaler USE 2 INHALATIONS ORALLY TWICE DAILY INSTRUCTED - tiotropium bromide (SPIRIVA RESPIMAT) 2.5 mcg/actuation inhaler Inhale 2 Puffs as instructed once daily. - hydrOXYzine HCl (ATARAX) 25 mg tablet Take 1 tablet by mouth three times daily as needed for anxiety. - losartan (COZAAR) 100 mg tablet TAKE 1 TABLET ONCE DAILY - albuterol (PROVENTIL) 2.5 mg /3 mL (0.083 %) nebulizer solution INHALE THE CONTENTS OF 1 VIAL VIA NEBULIZER EVERY 4 HOURS NEEDED - hydroCHLOROthiazide (HYDRODIURIL, ESIDRIX) 25 mg tablet Take 1 tablet by mouth once daily. - BIPAP Needs new BiPAP machine Use old settings - guaiFENesin (MUCINEX) 600 mg 12 hr tablet Take 1 tablet by mouth twice daily. - HERBAL THERAPY Herbal supplement called Clear Lungs - alpha-1 proteinase inhibitor, human, (PROLASTIN-C) 1,000 mg (+/-)/20 mL Inject 115.92 mL intravenously one time a week. Facility-Administered Medications as of 06/28/2022 - perflutren lipid microspheres 1.3 mL in NaCl (PF) 0.9% 10 mL injection (DEFINITY) - sodium chloride 0.9 % (flush) 10 mL (BD POSIFLUSH) Problem List As Of Date 06/28/2022 Noted Resolved Chronic obstructive lung disease (HCC) [J44.9] 08/11/2016 02/09/2017 Sleep apnea [G47.30] 08/11/2016 02/09/2017 Obstructive sleep apnea syndrome [G47.33] 02/09/2017 Foot pain, left [M79.672] 02/09/2017 07/06/2020 Uncomplicated alcohol dependence (HCC) [F10.20] 02/09/2017 Elevated blood pressure reading without diagnos*02/23/2017 03/03/2017 Hypertension, essential [I10] 03/03/2017 Smoker [F17.200] 11/27/2017 11/27/2017 Former smoker [Z87.891] 11/27/2017 Cough [R05.9] 11/27/2017 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 Encounter Status:Closed by KAYDEN VALENCIA on 06/28/22 [facility] 06-23-2022 Miscellaneous Notes Patient's is informed. Karen Madrid MA I ordered blood work to see if he has other viruses that cause a sore throat Kadyen Valencia DO Patient's informed of results. She states patient is still not feeling well. States they did a covid test on Monday and it was negative. States he has been using cepacol throat lozenges and sprays but nothing is helping and he says it is the worst sore throat he has ever had. Also she said his mucous is very thick. Please advise. Chetna Blanchard MA ----- Message from Kayden Valencia DO sent at 06/23/2022 8:37 AM EST ----- Please notify pt throat culture negative Kayden Valencia DO documented in this encounter [facility] 06-21-2022 History of Present illness Narrative notified . Marcy Agarwal MA Please notify pt if he continues to have sore throat, I can put in order for covid 19 and flu test Kayden Valencia DO Patient here for strep test, per Dr. Valencia recommendations [facility] Strep test collected and completed with no complications. Strep test was negative. Please advise. Chetna Blanchard MA documented in this encounter [facility] 05-04-2022 Miscellaneous Notes notified. (On hippa). Reminder placed. Marcy Agarwal MA Please call pt - CT of chest shows stable nodule. Repeat CT of chest in one year is recommended Kayden Valencia DO ] documented in this encounter [facility] 03-18-2022 Instructions Mely Hutton MD - 03/18/2022 2:41 PM EDT Prevnar 20 given today documented in this encounter [facility] 03-18-2022 History of Present illness Narrative Images from the original note were not included. . [facility] [place] Note Patient name: Clarke Brown PCP: Kayden Valencia DO CC: Follow-up COPD HPI: Clarke Brown 56 year old male former 32 pack year smoker (quit 2017) with PMH significant for CHUCKY on BiPAP, HTN, severe COPD (FEV1 0.85 L 21%), AAT deficiency (PiSZ) on replacement therapy until recently, pulmonary nodularity. Unable to afford infusion and v[employer] for assistance only covered $6500. On triple inhaler therapy and 5 mg of prednisone. Recommended pulmonary rehab, transplant evaluation, disability and TIW azithromycin but patient on Atarax, and do not recommend chronic oral steroid use but feels best on steroids. He has not participated in pulmonary rehab nor is he agreeing to lung transplant evaluation until his financial situation is established. Overall he states he has been doing fairly well. He remains as active as he can. He feels as if he is only able to be active without significant limitations with shortness of breath as long as he is on oral steroids. He has occasional cough with mucus production. He uses Mucinex which does help his phlegm expectoration. No audible wheezing or chest pain. No recent upper respiratory infections or hospitalizations or ED visits. He has been compliant with his triple inhaler usage. He uses nebulizer treatment prior to retiring for the evening. Small pulmonary nodules, due for follow-up CT in June. PAST MEDICAL HISTORY Diagnosis Date Alcohol abuse Alcohol intake above recommended sensible limits (HCC) Jgsvd-4-szlxlntljei deficiency (HCC) 2016 SZ Anxiety Benign essential hypertension Chronic cough Chronic obstructive lung disease (HCC) Very severe Dyslexia for numbers only Essential hypertension Former smoker Sleep apnea ALLERGIES Allergen Reactions Solu-Medrol [Methyl* Other: See Comments Passed out in ER after injection in 2017 Carmel Haile [Fl* Other: See Comments Made patient short of breath albuterol HFA (VENTOLIN HFA) 90 mcg/actuation inhaler USE 1 OR 2 INHALATIONS EVERY 4 HOURS NEEDED budesonide-formoterol (SYMBICORT) 160-4.5 mcg/actuation inhaler USE 2 INHALATIONS ORALLY TWICE DAILY INSTRUCTED tiotropium bromide (SPIRIVA RESPIMAT) 2.5 mcg/actuation inhaler Inhale 2 Puffs as instructed once daily. predniSONE (DELTASONE) 5 mg tablet Take 1 tablet by mouth once daily. hydrOXYzine HCl (ATARAX) 25 mg tablet Take 1 tablet by mouth three times daily as needed for anxiety. losartan (COZAAR) 100 mg tablet TAKE 1 TABLET ONCE DAILY albuterol (PROVENTIL) 2.5 mg /3 mL (0.083 %) nebulizer solution INHALE THE CONTENTS OF 1 VIAL VIA NEBULIZER EVERY 4 HOURS NEEDED hydroCHLOROthiazide (HYDRODIURIL, ESIDRIX) 25 mg tablet Take 1 tablet by mouth once daily. guaiFENesin (MUCINEX) 600 mg 12 hr tablet Take 1 tablet by mouth twice daily. HERBAL THERAPY Herbal supplement called Clear Lungs pneumococcal PCV20 vaccine (PREVNAR 20, PF,) 0.5 mL injection Inject 0.5 mL intramuscularly one time only for 1 dose. BIPAP Needs new BiPAP machineUse old settings alpha-1 proteinase inhibitor, human, (PROLASTIN-C) 1,000 mg (+/-)/20 mL Inject 115.92 mL intravenously one time a week. Social History Tobacco Use Smoking status: Former Smoker Packs/day: 1.00 Years: 32.00 Pack years: 32.00 Types: Cigarettes Start date: 08/14/1983 Quit date: 07/14/2016 Years since quittin.6 Smokeless tobacco: Never Used Vaping Use Vaping Use: Never used Substance Use Topics Alcohol use: Not Currently Comment: history of alcohol abuse Drug use: Never Comment: no reported history PMH, Social history, family history and surgical history reviewed and updated in EMR REVIEW OF SYSTEMS: CONSTITUTIONAL: No fevers, chills, nightsweats, unintended weight loss HEENT: Denies nasal congestion/sinus symptoms, allergy problems. EYES: No diplopia or blurry vision. CARDIOVASCULAR: No chest pain, palpitations, edema. PULM: See HPI GI: No dysphagia/odynophagia, problematic reflux NEURO: No new balance problems, peripheral weakness/paresthesias or numbness of concern. PSY: No concerns regarding depression, anxiety INTEGUMENTARY: No new skin changes or rashes PHYSICAL EXAMINATION: BP 126/72 Pulse 88 Resp 18 Wt 222 lb (100.7kg) SpO2 91% General Appearance: Age-appropriate male no acute distress Skin: Skin color, texture, turgor normal, no suspicious rashes or lesions. Head: Normocephalic, no masses, lesions, tenderness or abnormalities. Eyes: Slight scleral injection, conjunctiva normal Oropharynx: Poor dentition, no oral lesions or thrush Neck: No JVD, no masses, no adenopathy Lungs: Not labored, normal to percussion, very diminished breath sounds, no wheezes or crackles Heart: Regular rate and rhythm, no murmurs or gallops Extremities: No edema or clubbing Assessment/Plan: 1. Very severe COPD, GOLD stage 4 -He will continue on his triple inhaler therapy. Refilled his prescriptions -Do not recommend chronic oral steroid usage -Pulmonary rehab and transplant evaluation when patient ready for evaluation -Received Prevnar 20 vaccine today 2. Alpha-1 antitrypsin deficiency, SZ -aged or disabled care worker involved in assisting patient with provision of his infusions -For now he remains off replacement therapy 3. Former cigarette smoker -Former [id number] smoker having quit in 2016 -Qualifies for low-dose chest CT for lung cancer screening but set up for CT of his chest in June to follow small pulmonary nodules 4. Pulmonary nodularity -Due for follow-up CT of his chest in June Mely Hutton MD [facility] [place] documented in this encounter [facility] 03-01-2022 Miscellaneous Notes See MyChart message from [place] LPN documented in this encounter [facility] 02-17-2022 Miscellaneous Notes Phone call from [facility]. Pharmacist reports patient no longer wants to receive prolastin infusions because he does not feel it is helping me. documented in this encounter [facility] 01-24-2022 Miscellaneous Notes Pharmacy faxed requesting the following refill. Pending Prescriptions Disp Refills PREDNISONE 5 MG TABLET 30 tablet 3 Sig: Take 1 tablet by mouth once daily. JAIR: No Patient last appointment: 11/12/[address] [place] [address] Hutton Patient Phone numbers: [phone] (home) Request is for script(s) to be escript to pharmacy. Jazmín Henriquez documented in this encounter [facility] 01-13-2022 History of Present illness Narrative Subjective The history is provided by the patient. Hypertension This is a chronic problem. The current episode started more than 1 year ago. The problem is unchanged. The problem is controlled. Associated symptoms include shortness of breath. Pertinent negatives include no blurred vision, chest pain, headaches, malaise/fatigue or palpitations. He sees Dr. Hutton, hedge fund accountant, for his COPD He takes prednisone 5 mg daily He is on 2 daily inhalers and a rescue inhaler He does not use his daily inhalers all the time He takes his medication at noon and at midnight He had a CT of the chest on 06/25/21 showing some pulmonary nodules It was recommended that he get a repeat CT in 6-12 months He wants to go ahead and get the CT at 6 months He has a history of CHUCKY Uses bipap nightly He reports that the newer machine is much better than the ones he used in the past Because of this he is using it regularly He takes longer to complete jobs because he does not want to overdo it and rests so he does not overexert himself He has been hospitalized twice in the past for breathing issues, and that is why he paces himself so he does not end up back in the hospital 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 and temporary disability through [employer] He takes atarax for anxiety It works well for him He takes it sometimes twice in the evening ALLERGIES Allergen Reactions Solu-Medrol [Methyl* Other: See Comments Passed out in ER after injection in 2017 Carmel Haile [Fl* Other: See Comments Made patient short of breath Current Outpatient Medications Medication Sig Dispense Refill losartan (COZAAR) 100 mg tablet TAKE 1 TABLET ONCE DAILY 90 tablet 1 budesonide-formoterol (SYMBICORT) 160-4.5 mcg/actuation inhaler USE 2 INHALATIONS ORALLY TWICE DAILY INSTRUCTED 10.2 g 11 tiotropium bromide (SPIRIVA RESPIMAT) 2.5 mcg/actuation inhaler Inhale 2 Puffs as instructed once daily. 4 g 11 albuterol HFA (VENTOLIN HFA) 90 mcg/actuation inhaler USE 1 OR 2 INHALATIONS EVERY 4 HOURS NEEDED 18 g 11 albuterol (PROVENTIL) 2.5 mg /3 mL (0.083 %) nebulizer solution INHALE THE CONTENTS OF 1 VIAL VIA NEBULIZER EVERY 4 HOURS NEEDED 120 Vial 11 hydrOXYzine HCl (ATARAX) 25 mg tablet Take 1 tablet by mouth three times daily as needed for anxiety. 90 tablet 1 hydroCHLOROthiazide (HYDRODIURIL, ESIDRIX) 25 mg tablet Take 1 tablet by mouth once daily. 90 tablet 1 predniSONE (DELTASONE) 5 mg tablet Take 1 tablet by mouth once daily. 30 tablet 3 BIPAP Needs new BiPAP machine Use old settings 1 Each 0 guaiFENesin (MUCINEX) 600 mg 12 hr tablet Take 1 tablet by mouth twice daily. 60 tablet 5 HERBAL THERAPY Herbal supplement called Clear Lungs alpha-1 proteinase inhibitor, human, (PROLASTIN-C) 1,000 mg (+/-)/20 mL Inject 115.92 mL intravenously one time a week. (Patient taking differently: Inject 60 mg/kg/dose intravenously one time a week. Every other week ) 463.68 mL 11 Current Facility-Administered Medications Medication Dose Route Frequency Provider Last Rate Last Admin perflutren lipid microspheres 1.3 mL in NaCl (PF) 0.9% 10 mL injection (DEFINITY) INTRAVENOUS DIRECTED PRN Devi Solis PA-C sodium chloride 0.9 % (flush) 10 mL (BD POSIFLUSH) 10 mL INTRAVENOUS DIRECTED PRN Devi Solis PA-C ACTIVE PROBLEM LIST Obstructive Sleep Apnea Syndrome Panlobular Emphysema (Hcc) Uncomplicated Alcohol Dependence (Hcc) Hypertension, Essential Former Smoker Cough Screening for Prostate Cancer Cbhjc-5-Wozcxybedjd Deficiency (Hcc) Centrilobular Emphysema (Hcc) Social History Tobacco Use Smoking status: Former Smoker Packs/day: 1.00 Years: 32.00 Pack years: 32.00 Types: Cigarettes Start date: 08/14/1983 Quit date: 07/14/2016 Years since quittin.5 Smokeless tobacco: Never Used Vaping Use Vaping Use: Never used Substance Use Topics Alcohol use: Not Currently Comment: history of alcohol abuse Drug use: Never Comment: no reported history Family History Problem Relation Age of Onset other (pulmonary embolism) Mother Arthritis Father No Known Problems Sister Heart Brother Reviewed past medical history, family history and surgeries. All medications and supplements were reviewed with the patient. Pt sees the following specialists: Dr. Hutton, hedge fund accountant Review of Systems Constitutional: Negative for chills, diaphoresis, fever, malaise/fatigue and weight loss. HENT: Negative for ear pain and hearing loss. Eyes: Negative for blurred vision and double vision. Respiratory: Positive for cough and shortness of breath. Obstructive sleep apnea Cardiovascular: Negative for chest pain, palpitations and leg swelling. Gastrointestinal: Negative for constipation, diarrhea and heartburn. Genitourinary: Negative for dysuria and frequency. Musculoskeletal: Negative for back pain, falls, joint pain and myalgias. Skin: Negative for itching and rash. Neurological: Negative for dizziness, weakness and headaches. Endo/Heme/Allergies: Does not bruise/bleed easily. Psychiatric/Behavioral: Negative for depression and substance abuse. The patient is nervous/anxious. The patient does not have insomnia. Objective BP 128/76 (BP Site: Right Arm, BP Position: Sitting, BP Cuff Size: Large Adult) Pulse 72 Temp 36.8 C (98.3 F) Resp 18 Ht 182.9 cm (6') Wt 99 kg (218 lb 3.2 oz) SpO2 91% BMI 29.59 kg/m Physical Exam Constitutional: Appearance: Normal appearance. HENT: Head: Normocephalic and atraumatic. Nose: Nose normal. Mouth/Throat: Mouth: Mucous membranes are moist. Dentition: Normal dentition. Eyes: General: Lids are normal. Extraocular Movements: Extraocular movements intact. Conjunctiva/sclera: Conjunctivae normal. Pupils: Pupils are equal, round, and reactive to light. Neck: Thyroid: No thyroid mass or thyromegaly. Vascular: No carotid bruit. Trachea: Phonation normal. Cardiovascular: Rate and Rhythm: Normal rate and regular rhythm. Heart sounds: Normal heart sounds. No murmur heard. No friction rub. No gallop. Pulmonary: Effort: Pulmonary effort is normal. Breath sounds: Normal breath sounds. No wheezing or rales. Comments: Reduced breath sounds in bases b/l Abdominal: General: Bowel sounds are normal. There is no distension. Palpations: Abdomen is soft. There is no mass. Tenderness: There is no abdominal tenderness. Musculoskeletal: General: No swelling or tenderness. Normal range of motion. Cervical back: Normal range of motion and neck supple. No edema. Lymphadenopathy: Cervical: No cervical adenopathy. Skin: General: Skin is warm and dry. Findings: No erythema or rash. Nails: There is no clubbing. Neurological: Mental Status: He is alert and oriented to person, place, and time. Cranial Nerves: No cranial nerve deficit. Motor: Motor function is intact. Coordination: Coordination normal. Gait: Gait is intact. Psychiatric: Attention and Perception: Attention normal. Mood and Affect: Mood and affect normal. Speech: Speech normal. Behavior: Behavior normal. Behavior is cooperative. Thought Content: Thought content normal. Cognition and Memory: Cognition and memory normal. Judgment: Judgment normal. ASSESSMENT/PLAN: 1. Hypertension, essential - ICD9: 401.9, ICD10: I10 (primary diagnosis) Controlled on losartan 100 mg and hctz 25 mg daily 2. Qahlg-6-oipfgswrttc deficiency (HCC) - ICD9: 273.4, ICD10: E88.01 Under the care of Dr. Hutton, hedge fund accountant 3. Centrilobular emphysema (HCC) - ICD9: 492.8, ICD10: J43.2 Under the care of Dr. Hutton, hedge fund accountant 4. Obstructive sleep apnea syndrome - ICD9: 327.23, ICD10: G47.33 Uses bipap nightly 5. ALIRIO (generalized anxiety disorder) - ICD9: 300.02, ICD10: F41.1 Uses hydroxyzine as needed, once or twice a day - HYDROXYZINE HCL 25 MG TABLET Kayden Valencia DO documented in this encounter [facility] 01-11-2022 Miscellaneous Notes pharmacy electronically requesting refills as follows: Last seen 07/15/21 . Last refill 07/14/21 . Next office visit 01/13/22 Pending Prescriptions Disp Refills LOSARTAN 100 MG TABLET 90 tablet 1 Sig: TAKE 1 TABLET ONCE DAILY JAIR: Yes Please review and advise. Chetna Blanchard MA documented in this encounter [facility] 12-23-2021 Miscellaneous Notes Patients is informed. Karen Madrid MA Order attached erythromycin ----- Message from Chetna Blanchard MA sent at 07/22/2021 2:54 PM EST ----- Patient due for [address] to monitor nodules found on 06/25/21 CT. Chetna Blanchard MA documented in this encounter [facility] 11-12-2021 History of Present illness Narrative Images from the original note were not included. . [facility] [place] Note Patient name: Clarke Brown PCP: Kayden Valencia DO CC: COPD/AAT deficiency HPI: Clarke Brown 56 year old male former 32 pack year smoker, quitting in 2017 with CHUCKY on BiPAP, HTN, COPD, AAT deficiency (PiSZ) on augmentation therapy who presents for follow-up visit. Diagnosed with AAT deficiency in 2017 in face of severe obstructive lung disease (FEV1 0.85 L, 21%) and initially declined replacement therapy. At my initial visit, recommended continued triple inhaler therapy, application for disabilty, pulmonary rehab, prefer TIW azithromycin but patient not willing to stop Atarax, and evaluation for lung transplantation. Patient feels better on oral prednisone. Has been on 5 mg of prednisone daily. Prolonged use of steroids not recommended. Has not started pulmonary rehab due to class size. He was told that would be contacted once there were any openings. Has not transition to permanent disability. Financial coverage of medications for the future to be determined. Patient continues to be as active as possible. He walks daily. Dyspnea on exertion is about the same. Persistent cough without sputum production but improved since he has been on oral steroids. No audible wheezing. No recent URI, ED visits, hospitalization. Wearing BiPAP at night, has not had his ambulatory oximetry testing.) Remains tobacco free. DATA: COPD Assessment Test I never cough 0 1 2 3 4 5 I cough all the time; Score 4 I have no phlegm 0 1 2 3 4 5 My chest is completely full of phlegm; Score 3 My chest does not feel tight at all 0 1 2 3 4 5 My chest chest feels very tight; Score 2 When I walk up a hill or one flight of stairs I am not breathless 0 1 2 3 4 5 When I walk up a hill or one flight or stairs I am very breathless; Score 5 I am not limited doing any activities at home 0 1 2 3 4 5 I am very limited doing activities at home; Score 5 I am confident leaving my home despite my lung condition 0 1 2 3 4 5 I am not at all confident leaving my home because of my lung condition; Score 4 I sleep soundly 0 1 2 3 4 5 don't sleep soundly because of my lungs; Score 3 I have lots of energy 0 1 2 3 4 5 I have no energy at all; Score 1 Total Score: 27 PAST MEDICAL HISTORY Diagnosis Date Alcohol abuse Alcohol intake above recommended sensible limits (HCC) Ueqsc-3-hvekbulmcbm deficiency (HCC) 2016 SZ Anxiety Benign essential hypertension Chronic cough Chronic obstructive lung disease (HCC) Very severe Dyslexia for numbers only Essential hypertension Former smoker Sleep apnea ALLERGIES Allergen Reactions Solu-Medrol [Methyl* Other: See Comments Passed out in ER after injection in 2017 Carmel Haile [Fl* Other: See Comments Made patient short of breath budesonide-formoterol (SYMBICORT) 160-4.5 mcg/actuation inhaler USE 2 INHALATIONS ORALLY TWICE DAILY INSTRUCTED tiotropium bromide (SPIRIVA RESPIMAT) 2.5 mcg/actuation inhaler Inhale 2 Puffs as instructed once daily. albuterol HFA (VENTOLIN HFA) 90 mcg/actuation inhaler USE 1 OR 2 INHALATIONS EVERY 4 HOURS NEEDED albuterol (PROVENTIL) 2.5 mg /3 mL (0.083 %) nebulizer solution INHALE THE CONTENTS OF 1 VIAL VIA NEBULIZER EVERY 4 HOURS NEEDED hydrOXYzine HCl (ATARAX) 25 mg tablet Take 1 tablet by mouth three times daily as needed for anxiety. hydroCHLOROthiazide (HYDRODIURIL, ESIDRIX) 25 mg tablet Take 1 tablet by mouth once daily. predniSONE (DELTASONE) 5 mg tablet Take 1 tablet by mouth once daily. BIPAP Needs new BiPAP machineUse old settings losartan (COZAAR) 100 mg tablet TAKE 1 TABLET ONCE DAILY guaiFENesin (MUCINEX) 600 mg 12 hr tablet Take 1 tablet by mouth twice daily. HERBAL THERAPY Herbal supplement called Clear Lungs alpha-1 proteinase inhibitor, human, (PROLASTIN-C) 1,000 mg (+/-)/20 mL Inject 115.92 mL intravenously one time a week. Social History Tobacco Use Smoking status: Former Smoker Packs/day: 1.00 Years: 32.00 Pack years: 32.00 Types: Cigarettes Start date: 08/14/1983 Quit date: 07/14/2016 Years since quittin.3 Smokeless tobacco: Never Used Vaping Use Vaping Use: Never used Substance Use Topics Alcohol use: Not Currently Comment: history of alcohol abuse Drug use: Never Comment: no reported history FAMILY HISTORY Problem Relation Age of Onset other (pulmonary embolism) Mother Arthritis Father No Known Problems Sister Heart Brother PAST SURGICAL HISTORY Procedure Laterality Date INNER EAR SURGERY PROC UNLISTED left ear, tubes, [facility], approx mid 1970's IP 6 MINUTE WALK - 5241 09/02/2020 NASAL SURGERY PROCEDURE [place] [facility], approx 2005 PFT-PRE/POST BRONCHODILATOR 02/25/2014 PMH, Social history, family history and surgical history reviewed and updated in EMR REVIEW OF SYSTEMS: CONSTITUTIONAL: No fevers, chills, nightsweats, unintended weight loss HEENT: Denies headaches, nasal congestion/sinus symptoms, problematic allergy problems. CARDIOVASCULAR: No chest pain, palpitations. FITZPATRICK, mild edema PULM: See HPI GI: No dysphagia/odynophagia, problematic reflux. NEURO: No new balance problems, peripheral weakness/paresthesias or numbness of concern. MUSC-SKEL: No new joint pain, swelling, or erythema. PSY: No concerns regarding depression, anxiety INTEGUMENTARY: No new skin changes, rashes PHYSICAL EXAMINATION: BP 159/71 Pulse 115 Resp 14 Ht 6' 0 (1.83m) Wt 218 lb 9.6 oz (99.2kg) SpO2 92% BMI 29.64 kg/(m^2). General Appearance: Age-appropriate male no acute distress Skin: Skin color, texture, turgor normal, no suspicious rashes or lesions. Head: Normocephalic, no masses, lesions, tenderness or abnormalities. Eyes: Sclera, conjunctiva normal Oropharynx: Adequate dentition, no erythema, no thrush Neck: No JVD, no masses, no adenopathy Lungs: Not labored, percussion, very diminished breath sounds, no wheezes or crackles Heart: RRR, no murmur Extremities: Mild pitting pretibial edema, no clubbing Neurologic: Alert and oriented, no focal findings Assessment/Plan: 1. Very severe COPD, GOLD stage 4 -Continue triple inhaler therapy with as needed albuterol -Pulmonary rehab pending -Oxygen assessment pending -Continue tobacco abstinence -Needs referral for potential lung transplantation but wants to wait until financial situation finalized prior to referral -Decrease oral steroids to 2.5 mg a day with taper to off 2. Alpha-1 antitrypsin deficiency, PiSZ -Continue augmentation therapy 3. Former cigarette smoker -Former 24-zbit-gzzg smoker with sequelae of COPD -Continue abstinence Mely Hutton MD [facility] [place] documented in this encounter [facility] 09-07-2021 History of Present illness Narrative This is a 57-year-old male who has a history of COPD and alpha-1 antitrypsin deficiency. Patient's family physician is Betzy Valencia and he was a former patient of Dr. Noland. He was accompanied by his Pura. Patient has been seeing a hedge fund accountant in [place] namely Dr. Hutton. Patient had been on Prolastin up to 1 year ago because of insurance reasons he was not able to afford additional supplements. He did do overnight oxygen trending from [facility] and reports doing a 6-minute walk at the hospital a few months ago. He has had no recent testing. He does admit to some daily phlegm production. His current bronchodilator therapy is Symbicort 160/4.5 at 2 inhalations twice daily and Spiriva Respimat daily. Patient is also on prednisone 5 mg every morning that he takes in the morning with food. He reports that the prednisone was discontinued for period of time but he felt like his breathing was better when he was on that medicine and Dr. Hutton restarted that. Patient is no longer seeing Dr. Hutton.Additionally the patient has a history of hypertension. He has had tonsillectomy and adenoidectomy. Family history is positive for his father with diabetes and a brother with coronary artery disease. He also has a sister with no medical history. 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 Patient was born and raised in [place]. Patient also has a history of obstructive sleep apnea and is on CPAP therapy through [facility]. This is being managed by his family physician.Patient does have a an oxygen concentrator at home which she purchased and was a used device. He has minimal access to smaller portable tanks. -Pulmonary Medicine-[place] [id number] DO Work Phone: 09-06-2021 History of Present illness Narrative This is a 57-year-old male who has a history of COPD and alpha-1 antitrypsin deficiency. Patient's family physician is Betzy Valencia and he was a former patient of Dr. Noland. He was accompanied by his Pura. Patient has been seeing a hedge fund accountant in [place] namely Dr. Hutton. Patient had been on Prolastin up to 1 year ago because of insurance reasons he was not able to afford additional supplements. He did do overnight oxygen trending from [facility] and reports doing a 6-minute walk at the hospital a few months ago. He has had no recent testing. He does admit to some daily phlegm production. His current bronchodilator therapy is Symbicort 160/4.5 at 2 inhalations twice daily and Spiriva Respimat daily. Patient is also on prednisone 5 mg every morning that he takes in the morning with food. He reports that the prednisone was discontinued for period of time but he felt like his breathing was better when he was on that medicine and Dr. Hutton restarted that. Patient is no longer seeing Dr. Hutton.Additionally the patient has a history of hypertension. He has had tonsillectomy and adenoidectomy. Family history is positive for his father with diabetes and a brother with coronary artery disease. He also has a sister with no medical history. 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 Patient was born and raised in [place]. Patient also has a history of obstructive sleep apnea and is on CPAP therapy through [facility]. This is being managed by his family physician.Patient does have a an oxygen concentrator at home which she purchased and was a used device. He has minimal access to smaller portable tanks. -Pulmonary Medicine-[address] Work Phone: documented as of this encounter (statuses as of 11/08/2021) [facility] History of Past illness Narrative* Problem Noted Date Resolved Date Smoker 11/27/2017 11/27/2017 Elevated blood pressure read ing without diagnosis of hypertension 02/23/2017 03/03/2017 Foot pain, left 02/09/2017 07/06/2020 Chronic obstructive lung disease 08/11/2016 02/09/2017 Sleep apnea 08/11/2016 02/09/2017 documented as of this encounter (statuses as of 11/13/2021) [address]16-2018 History of Past illness Narrative* Problem Noted Date Resolved Date Smoker 11/27/2017 11/27/2017 Elevated blood pressure read ing without diagnosis of hypertension 02/23/2017 03/03/2017 Foot pain, left 02/09/2017 07/06/2020 Chronic obstructive lung disease 08/11/2016 02/09/2017 Sleep apnea 08/11/2016 02/09/2017 documented as of this encounter (statuses as of 11/29/2021) [place] [id number] History of Past illness Narrative* Problem Noted Date Resolved Date Smoker 11/27/2017 11/27/2017 Elevated blood pressure read ing without diagnosis of hypertension 02/23/2017 03/03/2017 Foot pain, left 02/09/2017 07/06/2020 Chronic obstructive lung disease 08/11/2016 02/09/2017 Sleep apnea 08/11/2016 02/09/2017 documented as of this encounter (statuses as of 12/13/2021) [address]16-2018 History of Past illness Narrative* Problem Noted Date Resolved Date Smoker 11/27/2017 11/27/2017 Elevated blood pressure read ing without diagnosis of hypertension 02/23/2017 03/03/2017 Foot pain, left 02/09/2017 07/06/2020 Chronic obstructive lung disease 08/11/2016 02/09/2017 Sleep apnea 08/11/2016 02/09/2017 documented as of this encounter (statuses as of 12/23/2021) [address]16-2018 History of Past illness Narrative* Problem Noted Date Resolved Date Smoker 11/27/2017 11/27/2017 Elevated blood pressure read ing without diagnosis of hypertension 02/23/2017 03/03/2017 Foot pain, left 02/09/2017 07/06/2020 Chronic obstructive lung disease 08/11/2016 02/09/2017 Sleep apnea 08/11/2016 02/09/2017 documented as of this encounter (statuses as of 01/11/2022) [address]16-2018 History of Past illness Narrative* Problem Noted Date Resolved Date Smoker 11/27/2017 11/27/2017 Elevated blood pressure read ing without diagnosis of hypertension 02/23/2017 03/03/2017 Foot pain, left 02/09/2017 07/06/2020 Chronic obstructive lung disease 08/11/2016 02/09/2017 Sleep apnea 08/11/2016 02/09/2017 documented as of this encounter (statuses as of 01/24/2022) [address]16-2018 History of Past illness Narrative* Problem Noted Date Resolved Date Smoker 11/27/2017 11/27/2017 Elevated blood pressure read ing without diagnosis of hypertension 02/23/2017 03/03/2017 Foot pain, left 02/09/2017 07/06/2020 Chronic obstructive lung disease 08/11/2016 02/09/2017 Sleep apnea 08/11/2016 02/09/2017 documented as of this encounter (statuses as of 01/25/2022) [address]16-2018 History of Past illness Narrative* Problem Noted Date Resolved Date Smoker 11/27/2017 11/27/2017 Elevated blood pressure read ing without diagnosis of hypertension 02/23/2017 03/03/2017 Foot pain, left 02/09/2017 07/06/2020 Chronic obstructive lung disease 08/11/2016 02/09/2017 Sleep apnea 08/11/2016 02/09/2017 documented as of this encounter (statuses as of 02/24/2022) [address]16-2018 History of Past illness Narrative* Problem Noted Date Resolved Date Smoker 11/27/2017 11/27/2017 Elevated blood pressure read ing without diagnosis of hypertension 02/23/2017 03/03/2017 Foot pain, left 02/09/2017 07/06/2020 Chronic obstructive lung disease 08/11/2016 02/09/2017 Sleep apnea 08/11/2016 02/09/2017 documented as of this encounter (statuses as of 03/01/2022) [address]16-2018 History of Past illness Narrative* Problem Noted Date Resolved Date Smoker 11/27/2017 11/27/2017 Elevated blood pressure read ing without diagnosis of hypertension 02/23/2017 03/03/2017 Foot pain, left 02/09/2017 07/06/2020 Chronic obstructive lung disease 08/11/2016 02/09/2017 Sleep apnea 08/11/2016 02/09/2017 documented as of this encounter (statuses as of 03/18/2022) [address]16[address]2018 History of Past illness Narrative* Problem Noted Date Resolved Date Smoker 11/27/2017 11/27/2017 Elevated blood pressure read ing without diagnosis of hypertension 02/23/2017 03/03/2017 Foot pain, left 02/09/2017 07/06/2020 Chronic obstructive lung disease 08/11/2016 02/09/2017 Sleep apnea 08/11/2016 02/09/2017 documented as of this encounter (statuses as of 04/30/2022) [address]16-2018 History of Past illness Narrative* Problem Noted Date Resolved Date Smoker 11/27/2017 11/27/2017 Elevated blood pressure read ing without diagnosis of hypertension 02/23/2017 03/03/2017 Foot pain, left 02/09/2017 07/06/2020 Chronic obstructive lung disease 08/11/2016 02/09/2017 Sleep apnea 08/11/2016 02/09/2017 documented as of this encounter (statuses as of 05/04/2022) [address]16-2018 History of Past illness Narrative* Problem Noted Date Resolved Date Smoker 11/27/2017 11/27/2017 Elevated blood pressure read ing without diagnosis of hypertension 02/23/2017 03/03/2017 Foot pain, left 02/09/2017 07/06/2020 Chronic obstructive lung disease 08/11/2016 02/09/2017 Sleep apnea 08/11/2016 02/09/2017 documented as of this encounter (statuses as of 06/22/2022) [address]16-2018 History of Past illness Narrative* Problem Noted Date Resolved Date Smoker 11/27/2017 11/27/2017 Elevated blood pressure read ing without diagnosis of hypertension 02/23/2017 03/03/2017 Foot pain, left 02/09/2017 07/06/2020 Chronic obstructive lung disease 08/11/2016 02/09/2017 Sleep apnea 08/11/2016 02/09/2017 documented as of this encounter (statuses as of 06/23/2022) [address]16-2018 History of Past illness Narrative* Problem Noted Date Resolved Date Smoker 11/27/2017 11/27/2017 Elevated blood pressure read ing without diagnosis of hypertension 02/23/2017 03/03/2017 Foot pain, left 02/09/2017 07/06/2020 Chronic obstructive lung disease 08/11/2016 02/09/2017 Sleep apnea 08/11/2016 02/09/2017 documented as of this encounter (statuses as of 07/22/2022) [address]16-2018 History of Past illness Narrative* Problem Noted Date Resolved Date Smoker 11/27/2017 11/27/2017 Elevated blood pressure read ing without diagnosis of hypertension 02/23/2017 03/03/2017 Foot pain, left 02/09/2017 07/06/2020 Chronic obstructive lung disease 08/11/2016 02/09/2017 Sleep apnea 08/11/2016 02/09/2017 documented as of this encounter (statuses as of 07/22/2022) [address]16-2018 History of Past illness Narrative* Problem Noted Date Resolved Date Smoker 11/27/2017 11/27/2017 Elevated blood pressure read ing without diagnosis of hypertension 02/23/2017 03/03/2017 Foot pain, left 02/09/2017 07/06/2020 Chronic obstructive lung disease 08/11/2016 02/09/2017 Sleep apnea 08/11/2016 02/09/2017 documented as of this encounter (statuses as of 07/22/2022) [address]16-2018 History of Past illness Narrative* Problem Noted Date Resolved Date Smoker 11/27/2017 11/27/2017 Elevated blood pressure read ing without diagnosis of hypertension 02/23/2017 03/03/2017 Foot pain, left 02/09/2017 07/06/2020 Chronic obstructive lung disease 08/11/2016 02/09/2017 Sleep apnea 08/11/2016 02/09/2017 documented as of this encounter (statuses as of 08/17/2022) [address]16-2018 History of Past illness Narrative* Problem Noted Date Resolved Date Smoker 11/27/2017 11/27/2017 Elevated blood pressure read ing without diagnosis of hypertension 02/23/2017 03/03/2017 Foot pain, left 02/09/2017 07/06/2020 Chronic obstructive lung disease 08/11/2016 02/09/2017 Sleep apnea 08/11/2016 02/09/2017 documented as of this encounter (statuses as of 08/18/2022) [address]16-2018 History of Past illness Narrative* Problem Noted Date Resolved Date Smoker 11/27/2017 11/27/2017 Elevated blood pressure read ing without diagnosis of hypertension 02/23/2017 03/03/2017 Foot pain, left 02/09/2017 07/06/2020 Chronic obstructive lung disease 08/11/2016 02/09/2017 Sleep apnea 08/11/2016 02/09/2017 documented as of this encounter (statuses as of 08/24/2022) [address]16-2018 History of Past illness Narrative* Problem Noted Date Resolved Date Smoker 11/27/2017 11/27/2017 Elevated blood pressure read ing without diagnosis of hypertension 02/23/2017 03/03/2017 Foot pain, left 02/09/2017 07/06/2020 Chronic obstructive lung disease 08/11/2016 02/09/2017 Sleep apnea 08/11/2016 02/09/2017 documented as of this encounter (statuses as of 08/29/2022) [address]16-2018 History of Past illness Narrative* Problem Noted Date Resolved Date Smoker 11/27/2017 11/27/2017 Elevated blood pressure read ing without diagnosis of hypertension 02/23/2017 03/03/2017 Foot pain, left 02/09/2017 07/06/2020 Chronic obstructive lung disease 08/11/2016 02/09/2017 Sleep apnea 08/11/2016 02/09/2017 documented as of this encounter (statuses as of 09/07/2022) [address]16-2018 History of Past illness Narrative* Problem Noted Date Resolved Date Smoker 11/27/2017 11/27/2017 Elevated blood pressure read ing without diagnosis of hypertension 02/23/2017 03/03/2017 Foot pain, left 02/09/2017 07/06/2020 Chronic obstructive lung disease 08/11/2016 02/09/2017 Sleep apnea 08/11/2016 02/09/2017 documented as of this encounter (statuses as of 09/13/2022) [address]16-2018 History of Past illness Narrative* Problem Noted Date Resolved Date Smoker 11/27/2017 11/27/2017 Elevated blood pressure read ing without diagnosis of hypertension 02/23/2017 03/03/2017 Foot pain, left 02/09/2017 07/06/2020 Chronic obstructive lung disease 08/11/2016 02/09/2017 Sleep apnea 08/11/2016 02/09/2017 documented as of this encounter (statuses as of 10/21/2022) [address]16-2018 History of Past illness Narrative* Problem Noted Date Resolved Date Smoker 11/27/2017 11/27/2017 Elevated blood pressure read ing without diagnosis of hypertension 02/23/2017 03/03/2017 Foot pain, left 02/09/2017 07/06/2020 Chronic obstructive lung disease 08/11/2016 02/09/2017 Sleep apnea 08/11/2016 02/09/2017 documented as of this encounter (statuses as of 10/26/2022) [address]16-2018 History of Past illness Narrative* Problem Noted Date Resolved Date Smoker 11/27/2017 11/27/2017 Elevated blood pressure read ing without diagnosis of hypertension 02/23/2017 03/03/2017 Foot pain, left 02/09/2017 07/06/2020 Chronic obstructive lung disease 08/11/2016 02/09/2017 Sleep apnea 08/11/2016 02/09/2017 documented as of this encounter (statuses as of 11/07/2022) [address]16-2018 History of Past illness Narrative* Problem Noted Date Resolved Date Smoker 11/27/2017 11/27/2017 Elevated blood pressure read ing without diagnosis of hypertension 02/23/2017 03/03/2017 Foot pain, left 02/09/2017 07/06/2020 Chronic obstructive lung disease 08/11/2016 02/09/2017 Sleep apnea 08/11/2016 02/09/2017 documented as of this encounter (statuses as of 12/12/2022) [place] [id number] History of Past illness Narrative* Problem Noted Date Resolved Date Smoker 11/27/2017 11/27/2017 Elevated blood pressure read ing without diagnosis of hypertension 02/23/2017 03/03/2017 Foot pain, left 02/09/2017 07/06/2020 Chronic obstructive lung disease 08/11/2016 02/09/2017 Sleep apnea 08/11/2016 02/09/2017 documented as of this encounter (statuses as of 01/16/2023) [facility]-16-2018 History of Past illness Narrative* Problem Noted Date Diagnosed Date Resolved Date Smoker 11/27/2017 11/27/2017 Elevated blood pressure read ing without diagnosis of hypertension 02/23/2017 03/03/2017 Foot pain, left 02/09/2017 07/06/2020 Chronic obstructive lung disease 08/11/2016 02/09/2017 Sleep apnea 08/11/2016 02/09/2017 documented as of this encounter (statuses as of 05/05/2023) [address]16-2018 History of Past illness Narrative* Problem Noted Date Diagnosed Date Resolved Date Smoker 11/27/2017 11/27/2017 Elevated blood pressure read ing without diagnosis of hypertension 02/23/2017 03/03/2017 Foot pain, left 02/09/2017 07/06/2020 Chronic obstructive lung disease 08/11/2016 02/09/2017 Sleep apnea 08/11/2016 02/09/2017 documented as of this encounter (statuses as of 06/23/2023) [facility] complaint Narrative - Reported* CLARKE BROWN is here for an initial evaluation and here with , Toni Mendez. * Reason for Visit: COPD, Alpha-1 Antitrypsin Deficiency. * Appointment requested by: Self Referral. [facility] [address] Work Phone: chi complaint Narrative - Reported* CLARKE BROWN is here for an initial evaluation and here with , Toni Mendez. * Reason for Visit: COPD, Alpha-1 Antitrypsin Deficiency. * Appointment requested by: Self Referral. [facility] [address] DO Work Phone: chief complaint Narrative - Reported* CLARKE BROWN is here for an initial evaluation and here with , Toni Mendez. * Reason for Visit: COPD, Alpha-1 Antitrypsin Deficiency. * Appointment requested by: Self Referral. -[facility] [address] DO Work Phone: chief complaint Narrative - ReportedCLARKE RBOWN is being seen for a cardiovascular evaluation . N[facility] [address] Work Phone: Evaluation note* Diagnosis Centrilobular emphysema (HCC) Other emphysema [facility] Diagnosis Stage 4 very severe COPD by GOLD classification ([facility])- Primary Rqbpo-6-kgzinaqduxw deficiency (HCC) Goitf-4-qhjwxivgtnc deficiency Former cigarette smoker Personal history of tobacco use, presenting hazards to health [facility] Diagnosis Lung nodules Other nonspecific abnormal finding of lung field [facility]* Diagnosis Hypertension, essential- Primary Unspecified essential hypertension Aycrz-2-qcxhuoqcozd deficiency (HCC) Dmdgr-6-edqouyupvjr deficiency Centrilobular emphysema (HCC) Other emphysema Obstructive sleep apnea syndrome Obstructive sleep apnea (adult) (pediatric) ALIRIO (generalized anxiety disorder) Generalized anxiety disorder [facility]* Diagnosis Stage 4 very severe COPD by GOLD classification ([facility])- Primary Cmqes-4-gazforddmri deficiency (HCC) Vpofz-2-dxwypqggwgw deficiency Former smoker Personal history of tobacco use, presenting hazards to health [facility] Diagnosis Lung nodules Other nonspecific abnormal finding of lung field [facility] Diagnosis Sore throat Acute pharyngitis [facility] Diagnosis Pharyngitis, unspecified etiology- Primary [facility] Diagnosis Leukemoid reaction- Primary [facility] Diagnosis Stage 4 very severe COPD by GOLD classification ([facility])- Primary AAT (kviel-1-dneqkayqbhp) deficiency (HCC) Vazho-4-bmslklogbol deficiency Dependence on nocturnal oxygen therapy Current chronic use of systemic steroids Need for influenza vaccination Need for prophylactic vaccination and inoculation against influenza [facility] Diagnosis COPD, very severe (HCC)- Primary Chronic airway obstruction, not elsewhere classified [facility] Diagnosis Well adult exam- Primary Routine general medical examination at a health care facility Hypertension, essential Unspecified essential hypertension Centrilobular emphysema (HCC) Other emphysema Obesity, Class I, BMI 30-34.9 Obesity, unspecified BMI 31.0-31.9,adult Body Mass Index 31.0-31.9, adult [facility] Diagnosis Encounter for immunization- Primary Need for other specified prophylactic vaccination against single bacterial disease [facility] Diagnosis Obstructive sleep apnea syndrome- Primary Obstructive sleep apnea (adult) (pediatric) [facility] Diagnosis Dermoid cyst of left ear- Primary [facility] Diagnosis ALIRIO (generalized anxiety disorder) Generalized anxiety disorder [facility] Diagnosis Centrilobular emphysema (CMS/HCC)- Primary Simple chronic bronchitis (CMS/HCC) Simple chronic bronchitis Hypoxemia documented in this encounter [facility] Work Phone: History of Present illness Narrative* Patient was seen today in the office on a 1 month follow-up visit for his severe emphysema. Patientreports that in general his breathing has been doing well since last time I saw him. The only issuehe had was at this holiday weekend he went out to camping and was exposed to a lot of smoke and dust and his breathing seemed to become worse. His oxygen saturation on room air at rest was 95%. * He denies significant coughing at this time or sputum production. He has not noticed any wheezing. As stated above he has some increased sense of dyspnea. * The patient has been using Symbicort 160/4.5 at 2 puffs twice a day, Spiriva Respimat 2.5 mcg daily. And a albuterol inhaler at 2 puffs 4 times daily as needed shortness of breath. He has continued to use his prednisone at 5 mg daily. -Pulmonary Medicine-[address] Work Phone: History of Present illness Narrative* Patient was seen today in the office on a 1 month follow-up visit for his severe emphysema. Patientreports that in general his breathing has been doing well since last time I saw him. The only issuehe had was at this holiday weekend he went out to camping and was exposed to a lot of smoke and dust and his breathing seemed to become worse. His oxygen saturation on room air at rest was 95%. * He denies significant coughing at this time or sputum production. He has not noticed any wheezing. As stated above he has some increased sense of dyspnea. * The patient has been using Symbicort 160/4.5 at 2 puffs twice a day, Spiriva Respimat 2.5 mcg daily. And a albuterol inhaler at 2 puffs 4 times daily as needed shortness of breath. He has continued to use his prednisone at 5 mg daily. [facility] [place] [address] DO Work Phone: History of Present illness Narrative* Patient was seen today on a 1 month follow-up visit to review his chronic bronchitis and emphysema.His oxygen saturation today in the office was 92 to 93%. I discussed with him the use of his medications which should be Breztri 2 and elations twice a day and albuterol inhaler 2 puffs 4 times dailyas needed shortness of breath. Patient reports that he is also been still using the Spiriva and I en couraged him to quit that medication. Patient is on prednisone of 5 mg daily. He does feel that hisbreathing is doing better with the Breztri. * Patient has a mild cough no sputum production. He has dyspnea with 1 flight of stairs. Patient is involved in pulmonary rehab at the hospital. [facility] [place] [address] DO Work Phone: History of Present illness Narrative* Patient was seen today on a 1 month follow-up visit to review his chronic bronchitis and emphysema.His oxygen saturation today in the office was 92 to 93%. I discussed with him the use of his medications which should be Breztri 2 and elations twice a day and albuterol inhaler 2 puffs 4 times dailyas needed shortness of breath. Patient reports that he is also been still using the Spiriva and I en couraged him to quit that medication. Patient is on prednisone of 5 mg daily. He does feel that hisbreathing is doing better with the Breztri. * Patient has a mild cough no sputum production. He has dyspnea with 1 flight of stairs. Patient is involved in pulmonary rehab at the hospital. -Pulmonary Medicine-[place] [address] DO Work Phone: Summary Purpose Family History No Family History Records FoundUnknown Family Member Name Dates Details Family history of pulmonary embolism: Mother(V17.49, Z82.49) Status:Active FHx: arthritis: Father(V17.7 , Z82.61) Status:Active FHx: heart disease: Brother( V17.49, Z82.49) Status:Active Unknown Family Member Name Dates Details Family history of pulmonary embolism: Mother(V17.49, Z82.49) Status:Active FHx: arthritis: Father(V17.7 , Z82.61) Status:Active FHx: heart disease: Brother( V17.49, Z82.49) Status:Active Unknown Family Member Name Dates Details Family history of pulmonary embolism: Mother(V17.49, Z82.49) Status:Active FHx: arthritis: Father(V17.7 , Z82.61) Status:Active FHx: heart disease: Brother( V17.49, Z82.49) Status:Active Unknown Family Member Name Dates Details Family history of pulmonary embolism: Mother(V17.49, Z82.49) Status:Active FHx: arthritis: Father(V17.7 , Z82.61) Status:Active FHx: heart disease: Brother( V17.49, Z82.49) Status:Active Unknown Family Member Name Dates Details Family history of pulmonary embolism: Mother(V17.49, Z82.49) Status:Active FHx: arthritis: Father(V17.7 , Z82.61) Status:Active FHx: heart disease: Brother( V17.49, Z82.49) Status:Active Unknown Family Member Name Dates Details Family history of pulmonary embolism: Mother(V17.49, Z82.49) Status:Active FHx: arthritis: Father(V17.7 , Z82.61) Status:Active FHx: heart disease: Brother( V17.49, Z82.49) Status:Active Unknown Family Member Name Dates Details Family history of pulmonary embolism: Mother(V17.49, Z82.49) Status:Active FHx: arthritis: Father(V17.7 , Z82.61) Status:Active FHx: heart disease: Brother( V17.49, Z82.49) Status:Active Unknown Family Member Name Dates Details Family history of pulmonary embolism: Mother(V17.49, Z82.49) Status:Active FHx: arthritis: Father(V17.7 , Z82.61) Status:Active FHx: heart disease: Brother( V17.49, Z82.49) Status:Active Unknown Family Member Name Dates Details Family history of pulmonary embolism: Mother(V17.49, Z82.49) Status:Active FHx: arthritis: Father(V17.7 , Z82.61) Status:Active FHx: heart disease: Brother( V17.49, Z82.49) Status:Active Unknown Family Member Name Dates Details Family history of pulmonary embolism: Mother(V17.49, Z82.49) Status:Active FHx: arthritis: Father(V17.7 , Z82.61) Status:Active FHx: heart disease: Brother( V17.49, Z82.49) Status:Active Unknown Family Member Name Dates Details Family history of pulmonary embolism: Mother(V17.49, Z82.49) Status:Active FHx: arthritis: Father(V17.7 , Z82.61) Status:Active FHx: heart disease: Brother( V17.49, Z82.49) Status:Active Unknown Family Member Name Dates Details Family history of pulmonary embolism: Mother(V17.49, Z82.49) Status:Active FHx: arthritis: Father(V17.7 , Z82.61) Status:Active FHx: heart disease: Brother( V17.49, Z82.49) Status:Active Unknown Family Member Name Dates Details Family history of pulmonary embolism: Mother(V17.49, Z82.49) Status:Active FHx: arthritis: Father(V17.7 , Z82.61) Status:Active FHx: heart disease: Brother( V17.49, Z82.49) Status:Active Unknown Family Member Name Dates Details Family history of pulmonary embolism: Mother(V17.49, Z82.49) Status:Active FHx: arthritis: Father(V17.7 , Z82.61) Status:Active FHx: heart disease: Brother( V17.49, Z82.49) Status:Active Unknown Family Member Name Dates Details Family history of pulmonary embolism: Mother(V17.49, Z82.49) Status:Active FHx: arthritis: Father(V17.7 , Z82.61) Status:Active FHx: heart disease: Brother( V17.49, Z82.49) Status:Active Unknown Family Member Name Dates Details Family history of pulmonary embolism: Mother(V17.49, Z82.49) Status:Active FHx: arthritis: Father(V17.7 , Z82.61) Status:Active FHx: heart disease: Brother( V17.49, Z82.49) Status:Active Unknown Family Member Name Dates Details Family history of pulmonary embolism: Mother(V17.49, Z82.49) Status:Active FHx: arthritis: Father(V17.7 , Z82.61) Status:Active FHx: heart disease: Brother( V17.49, Z82.49) Status:Active Unknown Family Member Name Dates Details Family history of pulmonary embolism: Mother(V17.49, Z82.49) Status:Active FHx: arthritis: Father(V17.7 , Z82.61) Status:Active FHx: heart disease: Brother( V17.49, Z82.49) Status:Active Unknown Family Member Name Dates Details Family history of pulmonary embolism: Mother(V17.49, Z82.49) Status:Active FHx: arthritis: Father(V17.7 , Z82.61) Status:Active FHx: heart disease: Brother( V17.49, Z82.49) Status:Active Advance Directives No Advanced Directives Records FoundDocuments on File Type Date Recorded 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 Advance Directive(s) 07/25/2021 8:27 PM Advance Directive(s) 06/04/2021 1:01 AM Advance Directive(s) 05/26/2021 3:19 PM Advance Directive(s) 12/03/2018 10:47 AM Documents on File Type Date Recorded 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 Advance Directive(s) 07/25/2021 8:27 PM Advance Directive(s) 06/04/2021 1:01 AM Advance Directive(s) 05/26/2021 3:19 PM Advance Directive(s) 12/03/2018 10:47 AM Reason for Referral Specialty Diagnoses / Procedures Referred By Ingris t Referred To Contact CT IMAGING Diagnoses Lung nodules Procedures CT CHEST WO IVCON DIAGNOSTIC COMPUTED TOMOGRAPHY THORAX W/O CNTRST Kayden Valencia Sharon, DO [address] [place] [address] Ct Imaging Referral ID Status Reason Start Date Expiration Date Visits Requested Visits Authorized [id number] Pending Review Auto-Generat ed Referral 12/23/2021 01/22/2023 1 1 Specialty Diagnoses / Procedures Referred By Ingris t Referred To Contact Mely Hutton MD [address] [place] [address] Referral ID Status Reason Start Date Expiration Date V isits Requested Visits Authorized [id number] Pending Review 1 1 Referral ID Status Reason Start Date Expiration Date V isits Requested Visits Authorized [id number] Closed Auto-Generate d Referral 12/23/2021 01/22/2023 1 1 Specialty Diagnoses / Procedures Referred By Ingris t Referred To Contact Diagnoses Dermoid cyst of left ear Procedures CONSULT TO DERMATOLOGY OFFICE/OUTPATIENT [facility] MDM 60-74 MINUTES Annie Kayden C, DO [address] [place] [address] Melvin Redd [address] [place] [address] Referral ID Status Reason Start Date Expiration Date Visits Requested Visits Authorized [id number] Authorized PCP Requested Referral 10/25/2022 10/25/2023 1 1 Chief Complaint * CLARKE BROWN is here for a follow-up visit. * Reason for Visit: Review CXR, PFT, ABG, SST results. * Appointment requested by: Self referral. * CLARKE BROWN is here for a follow-up visit. * Reason for Visit: Review CXR, PFT, ABG, SST results. * Appointment requested by: Self referral. 1 MO F/U-CB EMPHYSEMA,FITZPATRICK,OSA1 MO F/U-CB EMPHYSEMA,FITZPATRICK,OSA1 MO F/U-CB EMPHYSEMA,FITZPATRICK,OSA6 Week FUV. CB emphysema, FITZPATRICK, hypoxemia, OSA6 Week FUV. CB emphysema, FITZPATRICK, hypoxemia, OSA6 Week FUV. CB emphysema, FITZPATRICK, hypoxemia, CHUCKY* CLARKE BROWN is here for a 1 month follow-up. * Reason for Visit: SEVERE EMPHYSEMA. * Appointment requested by: Betzy VALENCIA. * CLARKE BROWN is here for a 1 month follow-up. * Reason for Visit: SEVERE EMPHYSEMA. * Appointment requested by: Betzy VALENCIA. * CLARKE BROWN is here for a 1 month follow-up. * Reason for Visit: CHRONIC BRONCHITIS, EMPHYSEMA, FITZPATRICK, HYPOXEMIA. * Appointment requested by: DR. VALENCIA. * CLARKE BROWN is here for a 1 month follow-up. * Reason for Visit: CHRONIC BRONCHITIS, EMPHYSEMA, FITZPATRICK, HYPOXEMIA. * Appointment requested by: DR. VALENCIA. * CLARKE BROWN is here for a 1 month follow-up. * Reason for Visit: CHRONIC BRONCHITIS, EMPHYSEMA, FITZPATRICK, HYPOXEMIA. * Appointment requested by: DR. VALENCIA. Additional Source Comments (unrecognized sect ion and content) No Status Records FoundNo Status Records FoundNo Status Records FoundNo Status Records FoundNo Status Records FoundNo Status Records FoundNo Status Records FoundNo Status Records FoundNo Status Records FoundNo Status Records Found INFORMATION SOURCE (unrecogn ized section and content) DATE CREATED AUTHOR AUTHOR'S ORGANIZ ATION 03/20/2019 [facility] DATE CREATED AUTHOR AUTHOR'S ORGANIZ ATION 03/05/2020 [facility] DATE CREATED AUTHOR AUTHOR'S ORGANIZ ATION 02/08/2023 [facility] DATE CREATED AUTHOR AUTHOR'S ORGANIZ ATION 02/09/2023 [facility] DATE CREATED AUTHOR AUTHOR'S ORGANIZ ATION 05/17/2023 [facility] DATE CREATED AUTHOR AUTHOR'S ORGANIZ ATION 06/13/2023 [facility] DATE CREATED AUTHOR AUTHOR'S ORGANIZ ATION 06/24/2023 [facility] DATE CREATED AUTHOR AUTHOR'S ORGANIZ ATION 06/25/2023 [facility] DATE CREATED AUTHOR AUTHOR'S LEXII POZO 08/20/2023 [facility] Source Comments (unrecognize d section and content) In the event this informatio n is protected by the Federal Confidentiality of Alcohol and Drug Abuse Patient Records regulations: The Federal rules restrict any use of the information to criminally investigate or prosecute any alcohol or drug abuse patient.[facility] CenterIn the event this information is protected by the Federal Confidentiality of Alcohol and Drug Abuse Patient Records regulations: The Federal rules restrict any use of the information to criminally investigate or prosecute any alcohol or drug abuse patient.[facility] CenterIn the event this information is protected by the Federal Confidentiality of Alcohol and Drug Abuse Patient Records regulations: The Federal rules restrict any use of the information to criminally investigate or prosecute any alcohol or drug abuse patient.[facility] CenterIn the event this information is protected by the Federal Confidentiality of Alcohol and Drug Abuse Patient Records regulations: The Federal rules restrict any use of the information to criminally investigate or prosecute any alcohol or drug abuse patient.[facility] CenterIn the event this information is protected by the Federal Confidentiality of Alcohol and Drug Abuse Patient Records regulations: The Federal rules restrict any use of the information to criminally investigate or prosecute any alcohol or drug abuse patient.[facility] CenterIn the event this information is protected by the Federal Confidentiality of Alcohol and Drug Abuse Patient Records regulations: The Federal rules restrict any use of the information to criminally investigate or prosecute any alcohol or drug abuse patient.[facility] CenterIn the event this information is protected by the Federal Confidentiality of Alcohol and Drug Abuse Patient Records regulations: The Federal rules restrict any use of the information to criminally investigate or prosecute any alcohol or drug abuse patient.[facility] CenterIn the event this information is protected by the Federal Confidentiality of Alcohol and Drug Abuse Patient Records regulations: The Federal rules restrict any use of the information to criminally investigate or prosecute any alcohol or drug abuse patient.[facility] CenterIn the event this information is protected by the Federal Confidentiality of Alcohol and Drug Abuse Patient Records regulations: The Federal rules restrict any use of the information to criminally investigate or prosecute any alcohol or drug abuse patient.[facility] CenterIn the event this information is protected by the Federal Confidentiality of Alcohol and Drug Abuse Patient Records regulations: The Federal rules restrict any use of the information to criminally investigate or prosecute any alcohol or drug abuse patient.[facility] CenterIn the event this information is protected by the Federal Confidentiality of Alcohol and Drug Abuse Patient Records regulations: The Federal rules restrict any use of the information to criminally investigate or prosecute any alcohol or drug abuse patient.[facility] CenterIn the event this information is protected by the Federal Confidentiality of Alcohol and Drug Abuse Patient Records regulations: The Federal rules restrict any use of the information to criminally investigate or prosecute any alcohol or drug abuse patient.[facility] CenterIn the event this information is protected by the Federal Confidentiality of Alcohol and Drug Abuse Patient Records regulations: The Federal rules restrict any use of the information to criminally investigate or prosecute any alcohol or drug abuse patient.[facility] CenterIn the event this information is protected by the Federal Confidentiality of Alcohol and Drug Abuse Patient Records regulations: The Federal rules restrict any use of the information to criminally investigate or prosecute any alcohol or drug abuse patient.[facility] CenterIn the event this information is protected by the Federal Confidentiality of Alcohol and Drug Abuse Patient Records regulations: The Federal rules restrict any use of the information to criminally investigate or prosecute any alcohol or drug abuse patient.[facility] CenterIn the event this information is protected by the Federal Confidentiality of Alcohol and Drug Abuse Patient Records regulations: The Federal rules restrict any use of the information to criminally investigate or prosecute any alcohol or drug abuse patient.[facility] CenterIn the event this information is protected by the Federal Confidentiality of Alcohol and Drug Abuse Patient Records regulations: The Federal rules restrict any use of the information to criminally investigate or prosecute any alcohol or drug abuse patient.[facility] CenterIn the event this information is protected by the Federal Confidentiality of Alcohol and Drug Abuse Patient Records regulations: The Federal rules restrict any use of the information to criminally investigate or prosecute any alcohol or drug abuse patient.[facility] CenterIn the event this information is protected by the Federal Confidentiality of Alcohol and Drug Abuse Patient Records regulations: The Federal rules restrict any use of the information to criminally investigate or prosecute any alcohol or drug abuse patient.[facility] CenterIn the event this information is protected by the Federal Confidentiality of Alcohol and Drug Abuse Patient Records regulations: The Federal rules restrict any use of the information to criminally investigate or prosecute any alcohol or drug abuse patient.[facility] CenterIn the event this information is protected by the Federal Confidentiality of Alcohol and Drug Abuse Patient Records regulations: The Federal rules restrict any use of the information to criminally investigate or prosecute any alcohol or drug abuse patient.[facility] CenterIn the event this information is protected by the Federal Confidentiality of Alcohol and Drug Abuse Patient Records regulations: The Federal rules restrict any use of the information to criminally investigate or prosecute any alcohol or drug abuse patient.[facility] CenterIn the event this information is protected by the Federal Confidentiality of Alcohol and Drug Abuse Patient Records regulations: The Federal rules restrict any use of the information to criminally investigate or prosecute any alcohol or drug abuse patient.[facility] CenterIn the event this information is protected by the Federal Confidentiality of Alcohol and Drug Abuse Patient Records regulations: The Federal rules restrict any use of the information to criminally investigate or prosecute any alcohol or drug abuse patient.[facility] CenterIn the event this information is protected by the Federal Confidentiality of Alcohol and Drug Abuse Patient Records regulations: The Federal rules restrict any use of the information to criminally investigate or prosecute any alcohol or drug abuse patient.[facility] CenterIn the event this information is protected by the Federal Confidentiality of Alcohol and Drug Abuse Patient Records regulations: The Federal rules restrict any use of the information to criminally investigate or prosecute any alcohol or drug abuse patient.[facility] CenterIn the event this information is protected by the Federal Confidentiality of Alcohol and Drug Abuse Patient Records regulations: The Federal rules restrict any use of the information to criminally investigate or prosecute any alcohol or drug abuse patient.[facility] CenterIn the event this information is protected by the Federal Confidentiality of Alcohol and Drug Abuse Patient Records regulations: The Federal rules restrict any use of the information to criminally investigate or prosecute any alcohol or drug abuse patient.[facility] CenterIn the event this information is protected by the Federal Confidentiality of Alcohol and Drug Abuse Patient Records regulations: The Federal rules restrict any use of the information to criminally investigate or prosecute any alcohol or drug abuse patient.[facility] CenterIn the event this information is protected by the Federal Confidentiality of Alcohol and Drug Abuse Patient Records regulations: The Federal rules restrict any use of the information to criminally investigate or prosecute any alcohol or drug abuse patient.[facility] CenterIn the event this information is protected by the Federal Confidentiality of Alcohol and Drug Abuse Patient Records regulations: The Federal rules restrict any use of the information to criminally investigate or prosecute any alcohol or drug abuse patient.[facility] Reason for Visit (unrecogniz ed section and content) Reason Comments Follow Up COPD Specialty Diagnoses / Procedures Referred By Contac t Referred To Contact [facility] Diagnoses Stage 4 very severe COPD by GOLD classification (HCC) Procedures SIX MINUTE WALK CARDIOPULMONARY EXERCISE STRESS Mely Hutton MD [address] [place] [address] Res[facility] [place] [address] [place] [address] Referral ID Status Reason Start Date Expiration Date V isits Requested Visits Authorized [id number] Closed Auto-Generate d Referral 08/20/2021 09/19/2022 1 1 Reason Comments Orders Reason Onset Date Comments Refill Request 01/24/2022 prednison Reason Comments Hypertension 6 month follow up Reason Comments Patient Update Reason Comments Established Patient 4 month follow up Specialty Diagnoses / Procedures Referred By Contac t Referred To Contact CT IMAGING Diagnoses Lung nodules Procedures CT CHEST WO IVCON DIAGNOSTIC COMPUTED TOMOGRAPHY THORAX W/O CNTRST Kayden Valencia DO [address] [place] [address] Ct Imaging Referral ID Status Reason Start Date Expiration Date V isits Requested Visits Authorized [id number] Closed Auto-Generate d Referral 12/23/2021 01/22/2023 1 1 Reason Comments Results Reason Comments Strep Test Reason Onset Date Comments Established Patient 4 month foll ow up Immunizations 07/22/2022 Flu vaccination Reason Comments covid booster vaccine Reason Comments Patient Question Reason Comments Forms Renee CPAP/BIPA O rder Reason Comments cyst on left ear draining For the last w chul[place]ick, was very painful, his worked on it and got most of it out. Reason Comments AAT deficiency Reason Comments Orders Reason Comments Bronchitis 4 MONTH CKHERE WITH , TONI MENDEZ Emphysema Care Teams (unrecognized sec tion and content) Public Service Administrator Relationship Specialty Start Date End Date Kayden Valencia DO [address] [place] [address] PCP - General Family Practice 02/09/17 Public Service Administrator Relationship Specialty Start Date End Date SheetsKayden DO [address] [place] [address] PCP - General Family Practice 02/09/17 Public Service Administrator Relationship Specialty Start Date End Date SheetsKayden, DO [address] [place] [address] PCP - General Family Practice 02/09/17 Public Service Administrator Relationship Specialty Start Date End Date SheetsKayden DO [address] [place] [address] PCP - General Family Practice 02/09/17 Public Service Administrator Relationship Specialty Start Date End Date SheetsKayden DO [address] [place] [address] PCP - General Family Practice 02/09/17 Public Service Administrator Relationship Specialty Start Date End Date Kayden Valencia DO [address] [place] [address] PCP - General Family Practice 02/09/17 Public Service Administrator Relationship Specialty Start Date End Date Kayden Valencia DO [address] [place] [address] PCP - General Family Practice 02/09/17 Public Service Administrator Relationship Specialty Start Date End Date Kayden Valencia DO [address] [place] [address] PCP - General Family Practice 02/09/17 Public Service Administrator Relationship Specialty Start Date End Date SheetsKayden DO [address] [place] [address] PCP - General Family Practice 02/09/17 Public Service Administrator Relationship Specialty Start Date End Date Sheets, Kayden Herrera, DO [address] [place] [address] PCP - General Family Practice 02/09/17 Public Service Administrator Relationship Specialty Start Date End Date Sheets, Kayden Herrera DO [address] [place] [address] PCP - General Family Medicine 02/09/17 Public Service Administrator Relationship Specialty Start Date End Date Sheets, Kayden Herrera, DO [address] [place] [address] PCP - General Family Medicine 02/09/17 Public Service Administrator Relationship Specialty Start Date End Date Sheets Kayden Herrera, DO [address] [place] [address] PCP - General Family Medicine 02/09/17 Public Service Administrator Relationship Specialty Start Date End Date Sheets Kayden Herrera, DO [address] [place] [address] PCP - General Family Medicine 02/09/17 Public Service Administrator Relationship Specialty Start Date End Date Sheets, Kayden Herrera DO [address] [place] [address] PCP - General Family Medicine 02/09/17 Public Service Administrator Relationship Specialty Start Date End Date Sheets, Kayden Herrera, DO [address] [place] [address] PCP - General Family Medicine 02/09/17 Public Service Administrator Relationship Specialty Start Date End Date Sheets Kayden Herrera, DO [address] [place] [address] PCP - General Family Medicine 02/09/17 Public Service Administrator Relationship Specialty Start Date End Date Sheets, Kayden Herrera DO [address] [place] [address] PCP - General Family Medicine 02/09/17 Public Service Administrator Relationship Specialty Start Date End Date Annie Kayden Herrera DO [address] [facility], [place] [id number] PCP - General Family Medicine 02/09/17 Public Service Administrator Relationship Specialty Start Date End Date Annie Kayden Herrera DO [address] [facility], [place] [id number] PCP - General Family Medicine 02/09/17 Public Service Administrator Relationship Specialty Start Date End Date Annie Kayden Herrera DO [address] [facility], [place] [id number] PCP - General Family Medicine 02/09/17 Public Service Administrator Relationship Specialty Start Date End Date AnnieKayden DO [address] [facility] [place] [address] PCP - General Family Medicine 02/09/17 Public Service Administrator Relationship Specialty Start Date End Date Annie Kayden Herrera DO [address] [facility] [place] [address] PCP - General Family Medicine 02/09/17 Public Service Administrator Relationship Specialty Start Date End Date Kayden Valencia DO [address] [facility] [place] [address] PCP - General 08/31/22 Public Service Administrator Relationship Specialty Start Date End Date Annie Kayden Herrera DO [address] [facility], [place] [id number] PCP - General Family Medicine 02/09/17 FOR RECORDS PERTAINING TO PATIENTS WHO ARE OR HAVE BEEN ENROLLED IN A CHEMICAL DEPENDENCY/SUBSTANCEABUSE PROGRAM, SOME INFORMATION MAY BE OMITTED. This clinical summary was aggregated from multiple sources. Caution should be exercised in using it in the provision of clinical care. This summary normalizes information from multiple sources, and as a consequence, information in this document may materially change the coding, format and clinical context of patient data. In addition, data may be omitted in some cases. CLINICAL DECISIONS SHOULD BE BASED ON THE PRIMARY CLINICAL RECORDS. [facility] [employer] [facility]. provides no warranty or guarantee of the accuracy or completeness of information in this document.
[2023-08-25 09:26] LABS: Platelet Count 307 K/mm3 (150-450)
[2023-08-25 09:30] LABS: International Normalized Ratio 0.9; Prothrombin Time (Protime)PT. 12.3 SECONDS (11.7-14.9)
[2023-08-25 09:31] LABS: Partial Thromboplast Time 26.1 Seconds (24.1-36.2)
[2023-08-25] MEDS: 0.9% Normal Saline (250mL Bag) 250 ML 15 ML IV (09:52)
[2023-08-25] MEDS: Midazolam 2 MG/2 ML Syringe IV ×2 (09:54→10:13)
[2023-08-25] MEDS: fentaNYL 100 MCG/2 ML Ampul IV (10:01)
[2023-08-25] MEDS: Lidocaine 2% (20 ml mdv) 20 ML Vial INFILT (10:07)
--- NOTE | 2023-08-25 10:30 | RAD_ITS ---
STUDY: X-RAY CHEST REASON FOR EXAM: Male, 58 years old. Post lung biopsy -- Immediately post lung biopsy TECHNIQUE: AP expiration views. COMPARISON: None. FINDINGS: EKG electrodes are seen. There is hyperinflation of the lungs consistent with chronic obstructive lung disease (COPD). No evidence of pneumothorax on the immediate post right lung biopsy radiograph. RAD/Chest 1 View IMPRESSION: No evidence of pneumothorax on the immediate post right lung biopsy radiograph. Electronically Signed: Femi Huston MD at 12:38 EST ,
--- NOTE | 2023-08-25 10:35 | NURSING ---
WHILE RESEARCH SCIENTIST GETTING POST BIOPSY CHEST XRAY PATIENT HAD NEAR SYNCOPAL EPISODE. PATIENT BECAME VERY PALE WITH PUPILS DILATED. PATIENT WAS ABLE TO RESPOND THROUGH THIS EPISODE. CHADWICK CRANE AT BEDSIDE. NEW ORDERS ENTERED. WILL CONTINUE TO MONITOR.
--- NOTE | 2023-08-25 10:41 | EKG12_ITS ---
Test Reason : BRADYCARDIA Blood Pressure : / mmHG Vent. Rate : 058 BPM Atrial Rate : 058 BPM P-R Int : 148 ms QRS Dur : 096 ms QT Int : 434 ms P-R-T Axes : 079 079 073 degrees QTc Int : 426 ms Sinus bradycardia Otherwise normal ECG No previous ECGs available Confirmed by SEGUN CORTEZ, ANUJA ([id number]), magazine editor AJ CESPEDES ([id number]) on 08/28/2023 2:06:53 PM Referred By: Alba Carlson Confirmed By:ANUJA CAST MD
[2023-08-25] MEDS: 0.9% Normal Saline (1000mL) 1,000 ML 999 ML IV (10:45)
[2023-08-25] MEDS: Naloxone 0.4 MG/ML Syringe 0.0200000000000000004 MG IV (11:00)
--- NOTE | 2023-08-25 11:08 | PCM.OP.PRO ---
Procedure Report Date of Procedure: 08/25/23 Assessment & Plan Assessment/Plan (1) Right lower lobe lung mass: PLAN: PROCEDURE: CT GUIDED CORE NEEDLE LUNG BIOPSY ORDERING PROVIDER: Alba Carlson CNP INDICATION: Male, 58 years old. Right lower lobe lung mass. PROVIDER: PARISA Stearns CONSENT: Written informed consent was obtained having explained the risks, benefits and alternatives in detail with the patient who accepted the risks and agreed to proceed. Laboratory review and clinical assessment was performed. PRE-PROCEDURE SEDATION ASSESSMENT: Current history and physical dictated by referring physician and reviewed. No clinical changes since date of exam. Patient has an ASA Class of 1. PROCEDURAL SEDATION PROTOCOL: The Drugs used were: 3 mg Versed, IV, and 50 mcg Fentanyl, IV. The sedation time was: 30 minutes, starting at 9:54 AM and terminated at 10:24 AM. The procedural sedation protocol was independently monitored by the department nurse. RADIATION DOSAGE (If Supplied By Facility): CTDIvol = 18.59 mGy, DLP = 562.69 mGycm Individualized dose optimization techniques were used for this CT. TECHNIQUE: The patient was placed in a prone position. A noncontrast CT was performed to localize the lesion in the right lower lobe. The skin surface was prepped and draped in a sterile fashion. 2% lidocaine was used for local anesthesia. Using CT guidance, a 20-gauge coaxial biopsy device was advanced to the targeted periphery of the lesion. Despite sedation and repeated reminders, the patient continued to have slight movement. This movement altered target location. Consequently the biopsy device was removed and repositioned superiorly, approximately 1 cm. A total of 6 core specimens were obtained. Specimens were microscopically reviewed by pathology in the CT suite and placed in formalin solution. BioSentry tract sealant system was deployed at the biopsy site, and the biopsy needle was removed. A sterile occlusive dressing was applied to the biopsy site. The patient tolerated the procedure well. An immediate chest xray was ordered, per protocol. A negative biopsy does not exclude malignancy. Further imaging or clinical followup based on patient condition and degree of clinical suspicion for malignancy. Suggest rebiopsy, if biopsy results do not match with clinical scenario. IMPRESSION: 1. CT directed core needle biopsy of right lower lobe lung nodule using CT image guidance with image documentation as described. Pathology results are pending. 2. Procedural Sedation protocol utilized with independent monitoring by the department nurse. Procedures Radiology Radiology CT Procedures: 09123 Biopsy Lung
--- NOTE | 2023-08-25 12:20 | RAD_ITS ---
STUDY: X-RAY CHEST REASON FOR EXAM: Male, 58 years old. 2 hr post lung biopsy -- 2 hours post lung biopsy TECHNIQUE: AP inspiration and expiration views. COMPARISON: Comparison is made with prior study done earlier today. FINDINGS: There is no evidence of pneumothorax on the 2 hour post right lung biopsy radiographs. RAD/Chest Insp/Exp 2 View IMPRESSION: No evidence of pneumothorax on the 2 hour post right lung biopsy radiographs. Electronically Signed: Femi Huston MD at 8:35 EST ,
== END | disposition home or self-care (01) ==
LOC: CT 08:50
PROVIDERS: Nurse Practitioner Acute Care; PCP Family Medicine; Referring Provider Nurse Practitioner Acute Care; Visit Provider Nurse Practitioner Acute Care
DX: J84.10 Pulmonary fibrosis, unspecified (principal)
CPT/HCPCS: 32408; 36415; 71045; 71046; 77012; 85049; 85610; 85730; 88172; 88305; 88313; 93005; 99156; 99157; J7030; J7050; C2613; J2310

== ENCOUNTER → 2023-09-08 | Outpatient (CLI) | payer MEDICAID, SELFPAY ==
--- OUTSIDE RECORDS SUMMARY | 2023-09-08 12:18 | XMS RPT_ITS | CCD ---
Author Name Unknown Address [address] [place] [address] Organization [facility] Care Team Providers Care Ruby Rails Developer Name Role Phone Arie Noland Unavailable Unavailable Vasyl Williamson Unavailable Unavailable Sheets DO, Kayden Herrera Primary Care Provider [phone] Sheets DO, Kayden Herrera Primary Care Provider [...] Parr Primary Care Unavailable Brown, Dr. Mely Dleacruz Attending Unavail able Sheets, Dr. Kayden Parr [...] source) methylprednisoLON E; Translations: [Solu-MEDROL] Drug Allergy [facility] Repository (12 sources) fluticasone / umeclidinium / vilanterol; Translations: [FLUTICASONE-UMEC LIDIN-VILANTER] Drug Allergy 1 Other: See Comments [facility] Work Phone: (20 sources) methylPREDNISolon e; Translations: [METHYLPREDNISOLO NE SODIUM SUCC] Drug Allergy 1 Other: See Comments, Unknown [facility] Work Phone: (20 sources) fluticasone / umeclidinium / vilanterol Drug Allergy 1 Other: See Comments [facility] Work Phone: (19 sources) methylPREDNISolon e; Translations: [SOLU-Medrol SOLR] Drug Allergy Hypotension [facility] [facility] DO Work Phone: Medications Current Medications Medication Drug Class(es) Dates Sig (Normalized) Sig (Original) Lactobacillus acidophilus (1 source) Lactobacillus acidophilus (PROBIOTIC ORAL) Take by mouth. Caps; use as directed 0 Active lactobacillus rhamnosus gg [id number] unt oral capsule (4 sources) Start: 10-12-2022 End: 10-12-2023 take 1 capsule by mouth once daily lactobacillus rhamnosus (CULTURELLE) 15 billion cell capsule TAKE ONE CAPSULE BY MOUTH DAILY. 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] Episodic Other [...] nutritional; endocrine; and metabolic disorders (20 sources) Bclex-4-grxoyuvvpaf deficiency; Translations: [Elgij-4-cmeztmcttwd deficiency] Onset: 07-12-2021 07-12-2021 Chronic Other nutritional; endocrine; and metabolic disorders (13 sources) Obese class I; Translations: [Obesity, unspecified] Onset: 08-16-2022 Chronic Other nutritional; endocrine; and metabolic disorders (13 sources) Body mass index 30+ - obesity; Translations: [Body mass index (BMI) 31.0-31.9, adult] Onset: 08-16-2022 Chronic Other nutritional; endocrine; and metabolic disorders (1 source) Antichymotrypsin svgicfplcw-hsijr-6; Translations: [Other disorders of plasma-protein metabolism, not elsewhere classified] Onset: 04-06-2023 04-06-2023 Chronic Other nutritional; endocrine; and metabolic disorders (1 source) Ymvei-8-fkrfyxvnmkg deficiency; Translations: [Nurjq-5-gszaidlgsjj deficiency (HCC)] Onset: 07-12-2021 Chronic Other nutritional; [...] 02-21-2023 Episodic Other aftercare (1 source) 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; Translations: [Medication management] Onset: [...] 180.3 cm Sully Arizmendi DO Work Phone: [facility] 06-12-2023 13:38-0400 Body mass index (BMI) [Ratio] 29.23 kg/m2 Sully Arizmendi DO Work Phone: [facility] 06-12-2023 13:38-0400 Body temperature 97.7 [degF] Sully Arizmendi DO Work Phone: [facility] 06-12-2023 13:38-0400 Body weight 95.07 kg Sully Arizmendi DO Work Phone: [facility] 06-12-2023 13:38-0400 Diastolic blood pressure 80 mm[Hg] Sully Arizmendi DO Work Phone: [facility] 06-12-2023 13:38-0400 Heart rate 90 /min Sully Kyleigh DO Work Phone: [facility] 06-12-2023 13:38-0400 SaO2% (BldA) [Mass fraction] 94 % Sully Emmanuelanabelledorina DO Work Phone: [facility] Encounters Encounter Date Encounter Type Care Provider Facility Start: 08-15-2023 End: 08-16-2023 ambulatory KAYDEN VALENCIA [facility] Start: 07-18-2023 End: 07-19-2023 ambulatory KAYDEN VALENCIA [facility] Start: 06-22-2023 Orders Only Librado Contreras MD Work Phone: Gastroenterology Start: 06-12-2023 End: 06-12-2023 ambulatory SULLY Manzano [facility] Ambulatory Start: 06-12-2023 End: 06-12-2023 Office outpatient visit 15 minutes Sully Arizmendi DO Work Phone: [facility] Procedures Date Procedure Procedure Detail Performing [...] Activity Detail Author Start: 10-17-2027 Colonoscopy COLONOSCOPY [facility] Start: 10-17-2027 COLORECTAL CANCER SCREENING COLORECTAL CANCER SCREENING [facility] Start: 10-13-2027 Lipid 1996 panel - Serum or Plasma Lipid Screening [facility] Start: 10-13-2027 LIPID SCREEN LIPID SCREEN [facility] Start: 07-20-2027 LIPID SCREEN LIPID SCREEN [facility] Start: 07-20-2027 PROSTATE CANCER SCREENING DISCUSSION PROSTATE CANCER SCREENING DISCUSSION [facility] Start: 05-27-2026 LIPID SCREEN LIPID SCREEN [facility] Start: 05-27-2026 PROSTATE CANCER SCREENING DISCUSSION PROSTATE CANCER SCREENING DISCUSSION [facility] Start: 10-12-2025 Diabetes mellitus screening Diabetes Screening [facility] Start: 10-12-2025 DIABETES SCREEN DIABETES SCREEN [facility] Start: 10-12-2025 Diabetes Screening Diabetes Screening [facility] Start: 07-20-2025 DIABETES SCREEN DIABETES SCREEN [facility] Start: 07-25-2024 DIABETES SCREEN DIABETES SCREEN [facility] Start: 02-22-2024 Annual PCP Team Chronic Disease Visit Annual PCP Team Chronic Disease Visit [facility] Start: 02-22-2024 BP Controlled (<130/80) BP Controlled (<130/80) [facility] Start: 12-10-2023 ANNUAL PCP TEAM CHRONIC DISEASE VISIT ANNUAL PCP TEAM CHRONIC DISEASE VISIT [facility] Start: 11-13-2023 End: 11-13-2023 Patient encounter procedure 11/13/2023 1:40 PM EDT Office Visit [facility] [address] [place] [id number] Sully Arizmendi DO [address] [place] [address] [facility] Start: 10-30-2023 FUV, Provider: Negro Coburn, Status: Pen, Time: 1:00 PM FUV, Provider: Negro Coburn, Status: Luis, Time: 1:00 PM [facility] [address] Work Phone: Start: 10-30-2023 End: 10-30-2023 Patient encounter procedure 10/30/2023 1:00 PM EDT Office Visit [facility] [address] [place] [address] [address] [place] [id number] Negro Coburn MD [address] [place] [address] [address] Level, [address] [place] [address] [facility] Start: 10-26-2023 ANNUAL PCP TEAM CHRONIC DISEASE VISIT ANNUAL PCP TEAM CHRONIC DISEASE VISIT [facility] Start: 10-26-2023 BP CONTROLLED (<130/80) BP CONTROLLED (<130/80) [facility] Start: 10-13-2023 Hemoglobin A1c measurement Diabetes: Hemoglobin A1C [facility] Start: 08-24-2023 BP CONTROLLED (<130/80) BP CONTROLLED (<130/80) [facility] Start: 08-16-2023 ANNUAL PCP TEAM CHRONIC DISEASE VISIT ANNUAL PCP TEAM CHRONIC DISEASE VISIT [facility] Start: 08-16-2023 BP CONTROLLED (<130/80) BP CONTROLLED (<130/80) [facility] Start: 08-16-2023 Urine microalbumin profile [facility] Immunizations Immunization Date Immunization Notes Care Provider Fa leighton 08-24-2022 COVID-19 booster vaccine, age 12+ yr, bivalent (PFIZER-BIONTECH) Nurse Ginger Work Phone: [facility] 07-22-2022 influenza, injectabl e, quadrivalent, contains preservative Mely Hutton MD Work Phone: [facility] 07-22-2022 influenza virus vaccine, unspecified formulation Kayden Annie DO Work Phone: [facility] 03-18-2022 pneumococcal Conjugate, unspecified formulation Mely Hutton MD Work Phone: [facility] Work Phone: 03-18-2022 pneumococcal (PCV20) vaccine, 20 valent (PREVNAR 20) Mely Hutton MD Work Phone: [facility] 03-18-2022 pneumococcal PCV20 vaccine (PREVNAR 20, PF,) 0.5 mL injection Mely Hutton MD Work Phone: [facility] Work Phone: Payers Date Payer Category Payer Unknown [id number] 2022 Medicaid [id number] 2020 Private Health Insurance [facility] CHO[facility] PL[facility] [id number] 2020-Present [phone] [address] [place] [address] O [id number]. [id number] 2016 Private Health Insurance 1966 Unknown [id number] 2.16840.1.372998.3.579.2. 356 1966 Unknown [id number] 2.840.1.715007.3.579.2. 356 1966 Unknown [id number] 2.840.1.551520.3.579.2. 356 1966 Unknown [id number] 2.16840.1.933128.3.579.2. 356 1966 Unknown [id number] 2.16.840.1.326443.3.579.2. 356 1966 Unknown [id number] 2.16840.1.983941.3.579.2. 356 1966 Unknown [id number] 2.16840.1.636700.3.579.2. 356 1966 Unknown [id number] 2.16.840.1.210644.3.579.2. 1069 1966 Unknown [id number] 2.16.840.1.156089.3.579.2. 1069 1966 Unknown [id number] 2.16.840.1.787750.3.579.2. 1069 1966 Unknown [id number] 2.16840.1.108630.3.579.2. 1069 1966 Unknown [id number] 2.16.840.1.736735.3.579.2. 1068 1966 Unknown [id number] 2.16.840.1.837914.3.579.2. 1068 1966 Unknown [id number] 2.16.840.1.337091.3.579.2. 1068 1966 Unknown [id number] 2.16.840.1.633185.3.579.2. 1068 1966 Unknown [id number] 2.16.840.1.729214.3.579.2. 1068 1966 Unknown [id number] 2.16.840.1.976474.3.579.2. 1068 1966 Unknown [id number] 2.16.840.1.714039.3.579.2. 1068 1966 Unknown [id number] 2.16.840.1.884845.3.579.2. 1068 1966 Unknown [id number] 2.16.840.1.275268.3.579.2. 1068 1966 Unknown [id number] 2.16.840.1.404711.3.579.2. 1068 1966 Unknown [id number] 2.16.840.1.527187.3.579.2. 1068 1966 Unknown [id number] 2.16.840.1.379012.3.579.2. 1068 1966 Unknown [id number] 2.16.840.1.957257.3.579.2. 1068 1966 Unknown [id number] 2.16.840.1.214062.3.579.2. 1068 1966 Unknown [id number] 2.16.840.1.660615.3.579.2. 1068 1966 Unknown [id number] 2.16.840.1.698139.3.579.2. 1068 1966 Unknown [id number] 2.16.840.1.102519.3.579.2. 1068 1966 Unknown [id number] 2.16.840.1.554545.3.579.2. 1068 1966 Unknown [id number] 2.16.840.1.328009.3.579.2. 1068 1966 Unknown [id number] 2.16.840.1.528517.3.579.2. 1068 1966 Unknown [id number] 2.16.840.1.059127.3.579.2. 1068 1966 Unknown [id number] 2.16.840.1.932769.3.579.2. 1068 1966 Unknown [id number] 2.16.840.1.556497.3.579.2. 1068 1966 Unknown [id number] 2.16.840.1.454662.3.579.2. 1068 1966 Unknown [id number] 2.16.840.1.574833.3.579.2. 1068 1966 Unknown [id number] 2.16.840.1.129625.3.579.2. 1068 1966 Unknown [id number] 2.16.840.1.784102.3.579.2. 1068 1966 Unknown [id number] 2.16.840.1.634886.3.579.2. 1068 1966 Unknown [id number] 2.16.840.1.552299.3.579.2. 1068 1966 Unknown [id number] 2.16.840.1.952814.3.579.2. 1068 1966 Unknown [id number] 2.16.840.1.954926.3.579.2. 1068 1966 Unknown [id number] 2.16.840.1.844922.3.579.2. 1068 1966 Unknown [id number] 2.16.840.1.477777.3.579.2. 1068 1966 Unknown [id number] 2.16.840.1.144350.3.579.2. 1068 1966 Unknown [id number] 2.16.840.1.440872.3.579.2. 1068 1966 Unknown [id number] 2.16.840.1.207308.3.579.2. 1068 1966 Unknown [id number] 2.16.840.1.985782.3.579.2. 1068 1966 Unknown [id number] 2.16.840.1.130498.3.579.2. 1068 1966 Unknown [id number] 2.16.840.1.565737.3.579.2. 1068 1966 Unknown [id number] 2.16.840.1.654865.3.579.2. 1068 1966 Unknown [id number] 2.16.840.1.689814.3.579.2. 1068 1966 Unknown [id number] 2.16.840.1.341042.3.579.2. 1068 1966 Unknown [id number] 2.16.840.1.081780.3.579.2. 1068 1966 Unknown [id number] 2.16.840.1.554197.3.579.2. 1068 1966 Unknown [id number] 2.16.840.1.638963.3.579.2. 1068 1966 Unknown [id number] 2.16.840.1.588969.3.579.2. 1068 1966 Unknown [id number] 2.16.840.1.540962.3.579.2. 1068 1966 Unknown [id number] 2.16.840.1.790124.3.579.2. 1068 1966 Unknown [id number] 2.16.840.1.744987.3.579.2. 1069 1966 Unknown [id number] 2.16.840.1.516920.3.579.2. 1069 1966 Unknown [id number] 2.16.840.1.838087.3.579.2. 1244 Self-pay Unknown Social History Date Type Detail Facility Start: 08-11-2016 End: 07-22-2022 Tobacco smoking status NHIS Ex-smoker [facility] Start: 08-14-1983 End: 07-14-2016 History of tobacco use Current smoker [facility] Start: 08-14-1983 End: 07-14-2016 History of tobacco use Cigarette Smoker [facility] Start: 08-11-2016 End: 07-19-2020 Cigarettes smoked current (pack per day) - Reported 1 [facility] Work Phone: Start: 08-11-2016 End: 07-22-2022 Tobacco use and exposure Smokeless tobacco non-user [facility] Start: 08-20-2021 End: 02-21-2023 Alcohol intake Ex-drinker (finding) [facility] Start: 1965 Sex Assigned At Male [facility] Start: 11-10-2021 History SDOH Alcohol Comment history of alcohol abuse [facility] Start: 11-02-2021 End: 06-12-2023 Exposure to SARS-CoV-2 (event) Not sure [facility] Start: 07-19-2020 End: 02-21-2023 Tobacco use panel [facility] Work Phone: Adult Depression Screening Assessment 0 [facility] Work Phone: Start: 12-04-2018 Gender identity Identifies as male gender (finding) [facility] Start: 06-03-2021 Sexual orientation Heterosexual (ally mark) [facility] Clinical Notes 11-27-2017 to 06-22-2023 Librado Contreras MD - 06/22/2023 7:29 PM Cori Arizmendi DO - 06/12/2023 1:20 PM EDTTelephone Atiya - Marcy Agarwal MA - 05/05/2023 11:22 AM EDTPatient InstructionsPatient Instructions Note Date & Type Note Facility 06-22-2023 Note HNO ID: [id number] Author: Librado Contreras MD Service: ? Author Type: Physician Type: Progress Notes Filed: 06/22/2023 8:15 PM Note Text: Pos COVID HIGH RISKS (PULM DX) [facility]slovid [facility] 06-22-2023 History of Present illness Narrative Pos COVID HIGH RISKS (PULM DX)\ Paxslovid documented in this encounter [facility] 06-12-2023 History of Present illness Narrative Subjective [...] noncontributory. Refer to the [facility]. Objective Physical Exam HEENT, no inflammation noted [...] breathing. This note was transcribed using the [employer] Dictation system. There may be grammatical, punctuation, or verbiage errors that occur with voice recognition programs. documented in this encounter [facility] Work Phone: 05-05-2023 Miscellaneous Notes Gave patients (toni) all information. Marcy Agarwal MA Please notify [...] Marcy Agarwal MA documented in this encounter [facility] 02-21-2023 Note HNO ID: [id number] Author: Kayden Valencia DO Service: ? Author [...] Alcohol Dependence (Hcc) Hypertension, Essential Former Smoker Ubxao-1-Vdlpccbcxhb Deficiency (Hcc) Centrilobular Emphysema (Hcc) Alirio (Generalized [...] Pulmonary: Effort: Pulmon (more content not included)... [facility] 01-16-2023 Miscellaneous Notes pharmacy electronically requesting refills as follows: Last seen 12/09/22 [facility] . Last refill 01/13/22 . Requested Prescriptions Pending Prescriptions Disp Refills hydrOXYzine HCl (ATARAX) 25 mg tablet [Pharmacy Med Name: hydroxyzine HCl 25 mg tablet] 90 tablet 11 Sig: TAKE 1 TABLET BY MOUTH THREE TIMES DAILY NEEDED FOR ANXIETY. Please review and advise. Chetna Blanchard MA documented in this encounter [facility] 12-16-2022 History of Present illness Narrative This [...] during the day and at nighttime. [facility] [place] [address] DO Work Phone: 12-14-2022 History of Present [...] during the day and at nighttime. [facility] [address] DO Work Phone: 12-09-2022 Note HNO ID: [id number] Author: Kayden Valencia, DO Service: ? Author Type: Physician Type: Progress Notes Filed: 12/09/2022 5:24 PM Note Text: VIRTUAL VISIT PROGRESS NOTE This is a virtual visit using hopscout video visit. It required patient-provider interaction for the medical decision making as documented below. I have communicated my name and active licensure. The patient's identity and physical location were verified at the time of this visit. Either the patient or their legal sales representative raw fibers has been informed of the risks and [...] Alcohol intake above recommended sensible limits (HCC) Cssbi-1-gpedubutcxj deficiency (HCC) 2016 SZ Anxiety Benign essential [...] NECK: denies swelling (more content not included)... [facility] 12-09-2022 Miscellaneous Notes Please help assist with [...] Chetna Blanchard MA documented in this encounter [facility] 11-07-2022 Note HNO ID: [id number] Author: Mely Hutton MD Service: ? Author Type: Physician Type: Progress Notes Filed: 11/07/2022 8:03 AM Note Text: Received notice from Patient Sectionizer from [employer]), Patient refusing augmentation therapy for his deficiency. [facility] 11-07-2022 History of Present illness Narrative Received notice from Patient Sectionizer from [employer] ([employer]), Patient refusing augmentation therapy for his deficiency. documented in this encounter [facility] 10-31-2022 History of Present illness Narrative Patient also has dyspnea on exertion and obstructive sleep apnea. Patient reports that he went to [place] for a month and was exposed to apparently high pollen count which was probably result from the heavy rains and sliding that they had in [place]. He was subsequently admitted to the hospital [...] cough with some clear sputum production. [facility] [address] [employer] Work Phone: 10-28-2022 History of Present illness Narrative Patient also has dyspnea on exertion and obstructive sleep apnea. Patient reports that he went to [place] for a month and was exposed to apparently high pollen count which was probably result from the heavy rains and sliding that they had in [place]. He was subsequently admitted to the hospital [...] cough with some clear sputum production. [facility] [address] DO Work Phone: 10-25-2022 Note HNO ID: [id number] Author: Kayden Valencia, DO Service: ? Author [...] now He was in the hospital in [place] for [address] 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 No ga (more content not included)... [facility] 10-25-2022 Instructions Kayden Valencia DO - 10/25/2022 12:07 PM EDT Use an antibiotic ointment on the area 1 to 2 times per day, until you see the skin doctor. documented in this encounter [facility] 10-25-2022 History of Present illness Narrative Subjective [...] now He was in the hospital in [place] for [address] 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 ALLERGIES Allergen Reactions Solu-Medrol [Methyl* Other: [...] Alcohol Dependence (Hcc) Hypertension, Essential Former Smoker Eoybx-8-Zztzxzhchgd Deficiency (Hcc) Centrilobular Emphysema (Hcc) Alirio (Generalized [...] twice a day until he sees the claims investigator - CONSULT TO DERMATOLOGY - Denise Sharp DO documented in this encounter [facility] 10-10-2022 History of Present illness Narrative Patient is a 57-year-old former smoker male with extensive prior medical history including COPD (sometimes uses night oxygen), alpha 1 anti-trypsin deficiency, hypoxemia, dyspnea on exertion, obstructive sleep apnea on CPAP. The patient had a NSTEMI on October 10, 2022 in [place], which showed mild nonobstructive heart disease and and was referred for cardiology assessment.The patient states that he started to have shortness of breath while driving on October 10 in [place], his saturation was 79%, was referred to the emergency department, and upon arrival his O2 saturation was about 92% on room air. He received nebulized albuterol with improvement of his symptoms. However, his troponins went up flfy523 to300. He was diagnosed with NSTEMI and sent today Blood Bank Assistant. His cinecoronariography ([facility]) showed mild nonobstructive disease(nondominant RCA with 25% [...] breath is due to his severe COPD. [facility] [address] Work Phone: 09-13-2022 Miscellaneous Notes Renee CPAP/BIPA Order placed in Dr. Valencia green folder to be signed. Chetna Blanchard MA documented in this encounter [facility] 09-07-2022 Miscellaneous Notes All information has been [...] call when completed. documented in this encounter [facility] 09-02-2022 History of Present illness Narrative Patient [...] and prior care that he received through [facility] whether they would cover part of all he would want as far as supplemental portable oxygen. There is specifically interested in working with [facility]. I subsequently contacted the pharmacy myself and it appears that there may be a good chance of them covering his oxygen needs providing there is not a conflict in who may be covering some of his other oxygen. He reports having an oxygen concentrator that he uses with his CPAP device. [facility] [address] DO Work Phone: 09-02-2022 History of Present [...] and prior care that he received through [facility] whether they would cover part of all he would want as far as supplemental portable oxygen. There is specifically interested in working with [facility]. I subsequently contacted the pharmacy myself and it appears that there may be a good chance of them covering his oxygen needs providing there is not a conflict in who may be covering some of his other oxygen. He reports having an oxygen concentrator that he uses with his CPAP device. [facility] [address] DO Work Phone: 08-24-2022 Note HNO ID: [id number] Author: Chetna Blanchard MA Service: ? Author Type: Web Retailer Type: Progress Notes Filed: 08/24/2022 1:53 PM Note Text: Immunizations were given as ordered. Vaccination information sheet(s) given. Chetna Blanchard MA [facility] 08-24-2022 History of Present illness Narrative Immunizations were given as ordered. Vaccination information sheet(s) given. Chetna Blanchard MA documented in this encounter [facility] 08-16-2022 Note HNO ID: [id number] Author: Kayden Valencia, DO Service: ? Author Type: Physician Type: Progress Notes Filed: 08/16/2022 8:44 PM Note Text: SUBJECTIVE: 57 year old male for annual routine checkup. I have fully reviewed the past medical, surgical, social and family history and updated the Histories section of [facility]. He has a history of hypertension, COPD He is under the care of Dr. Hutton, hot mill tin roller Dr. Hutton is recommending a lung transplant, [...] Dependence (Hcc) Hypertension, Essential Former Smoker Cough Kbpyw-5-Tvhibxrgejd Deficiency (Hcc) Centrilobular Emphysema (Hcc) Alirio (Generalized [...] normal, canals clear (more content not included)... [facility] 08-16-2022 History of Present illness Narrative SUBJECTIVE: 57 year old male for annual routine checkup. I have fully reviewed the past medical, surgical, social and family history and updated the Histories section of [facility]. He has a history of hypertension, COPD He is under the care of Dr. Hutton, hot mill tin roller Dr. Hutton is recommending a lung transplant, [...] Dependence (Hcc) Hypertension, Essential Former Smoker Cough Ywktf-4-Ouxpptxhaju Deficiency (Hcc) Centrilobular Emphysema (Hcc) Alirio (Generalized [...] 492.8, ICD10: J43.2 Under the care of hot mill tin roller, Dr. Hutton 4. Obesity, Class I, BMI 30-34.9 - ICD9: 278.00, ICD10: E66.9 Lifestyle modification recommended 5. BMI 31.0-31.9,adult - ICD9: V85.31, ICD10: Z68.31 Lifestyle modification recommended Kayden Valencia DO documented in this encounter [facility] 07-22-2022 Note HNO ID: [id number] Author: Mely Hutton MD Service: ? Author Type: Physician Type: Progress Notes Filed: 07/22/2022 4:55 PM Note Text: . [facility] [place] Note Patient name: Clarke Brown PCP: Kayden [...] or chest pain. He was contacted by [facility] for pulmonary rehab last year but apparently [...] DATE OF EXAM: Apr 29 2022 12:51PM [facility] 0541 - CT CHEST WO IVCON / [...] Alcohol intake above recommended sensible limits (HCC) Gbajz-5-esvkhfupulr deficiency (HCC) 2017 SZ Anxiety Benign essential hypertension Chronic cough Chronic obstructive lung disease (HCC) Very severe Dyslexia for numbers only Essential hypertension Former smoker Sleep apnea ALLERGIES Allergen Reactions Solu-Medrol [Methyl* Other: See Comments Passed out in ER after injection in 2017 Trelashell Haile [Fl* Other: See Comments Made patient [...] mouth once daily.Dis (more content not included)... [facility] 07-22-2022 History of Present illness Narrative . [facility] [place] Note Patient name: Clarke Brown PCP: Kayden [...] or chest pain. He was contacted by [facility] for pulmonary rehab last year but apparently [...] DATE OF EXAM: Apr 29 2022 12:51PM [facility] 0541 - CT CHEST WO IVCON / [...] Alcohol intake above recommended sensible limits (HCC) Iecvv-6-smankfhinis deficiency (HCC) 2017 SZ Anxiety Benign essential [...] WALK - 5241 09/02/2020 NASAL SURGERY PROCEDURE [place] [facility], approx 2005 PFT-PRE/POST BRONCHODILATOR 02/25/2014 PMH, [...] will need a reassessment for prescription to [facility]. Nocturnal oximetry order sent to [facility] [place] 4. Current use of chronic oral steroids -See #1 Mely Hutton MD [facility] [place] documented in this encounter [facility] 07-22-2022 Miscellaneous Notes Pt. notified and states he doesn't;t have sore throat any more. Marcy Agarwal MA Please call pt - blood work is negative for any viruses that may cause a sore throat. Does he still have a sore throat? Kayden Valencia DO documented in this encounter [facility] 07-22-2022 Miscellaneous Notes notified. Marcy Agarwal MA Please call pt - blood work shows that white blood cells are a little elevated. I will order repeat CBC - order attached. Rest of blood work is acceptable. Kayden Valencia DO documented in this encounter [facility] 06-28-2022 Note Patient Outreach (AG ACM) CLARKE BROWN ([id number]) 1965 M Date Time Provider Department 06/28/22 KAYDEN VALENCIA [facility] During your visit today, we recorded the [...] [Z79.899] Order(s):BASIC METABOLIC PNL [SQBMP] Order #: [id number] FUTURE HGB A1C [LVPJU1O] Order #: [id number] FUTURE SCHEDULE LAB TESTING [9636819] Order #: [id number] FUTURE CBC [SQCBC] Order #: [id number] FUTURE LIPID PANEL BASIC [SQLIPB] Order #: [id number] FUTURE PSA/PROSTSPECAG SCRN [SQPSAS1] Order #: [id number] FUTURE Prescriptions as of 06/28/2022 - albuterol [...] Former smoker [Z87.891] 11/27/2017 Cough [R05.9] 11/27/2017 Bqxvw-1-aybagftpawz 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 Encounter Status:Closed by KAYDEN VALECNIA on 06/28/22 [facility] 06-23-2022 Miscellaneous Notes Patient's is informed. Karen Madrid MA I ordered blood work to see if he has other viruses that cause a sore throat Kayden Valencia DO Patient's informed of results. She [...] Kayden Valencia DO documented in this encounter [facility] 06-21-2022 History of Present illness Narrative notified . Marcy Agarwal MA Please notify pt if he continues to have sore throat, I can put in order for covid 19 and flu test Kayden Valencia DO Patient here for strep test, per Dr. Valencia [facility] Strep test collected and completed with no complications. Strep test was negative. Please advise. Chetna Blanchard MA documented in this encounter [facility] 05-04-2022 Miscellaneous Notes notified. (On hippa). Reminder placed. Marcy Agarwal MA Please call pt - CT of chest shows stable nodule. Repeat CT of chest in one year is recommended Kayden Valencia DO ] documented in this encounter [facility] 03-18-2022 Instructions Mely Hutton MD - 03/18/2022 2:41 PM EDT Prevnar 20 given today documented in this encounter [facility] 03-18-2022 History of Present illness Narrative Images from the original note were not included. . [facility] [place] Note Patient name: Clarke Brown PCP: Kayden [...] Alcohol intake above recommended sensible limits (HCC) Sxrpf-4-kigncwflhxs deficiency (HCC) 2016 SZ Anxiety Benign essential [...] vaccine today 2. 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 Former cigarette smoker -Former 36-ddbh-mexu smoker having quit in 2016 -Qualifies for low-dose chest CT for lung cancer screening but set up for CT of his chest in June to follow small pulmonary nodules 4. Pulmonary nodularity -Due for follow-up CT of his chest in June Mely Hutton MD [facility] [place] documented in this encounter [facility] 03-01-2022 Miscellaneous Notes See MyChart message from L[place]a [place] LPN documented in this encounter [facility] 02-17-2022 Miscellaneous Notes Phone call from [facility]. Pharmacist reports patient no longer wants to receive prolastin infusions because he does not feel it is helping me. documented in this encounter [facility] 01-24-2022 Miscellaneous Notes Pharmacy faxed requesting the following refill. Pending Prescriptions Disp Refills PREDNISONE 5 MG TABLET 30 tablet 3 Sig: Take 1 tablet by mouth once daily. JAIR: No Patient last appointment: 11/12/[address] [place] [address] Hutton Patient Phone numbers: [phone] (home) Request is for script(s) to be escript to pharmacy. Jazmín Henriquez documented in this encounter [facility] 01-13-2022 History of Present illness Narrative Subjective The history is provided by the patient. Hypertension This is a chronic problem. The current episode started more than 1 year ago. The problem is unchanged. The problem is controlled. Associated symptoms include shortness of breath. Pertinent negatives include no blurred vision, chest pain, headaches, malaise/fatigue or palpitations. He sees Dr. Hutton, hot mill tin roller, for his COPD He takes prednisone 5 [...] Former Smoker Cough Screening for Prostate Cancer Ggmik-3-Fzblxwpdkli Deficiency (Hcc) Centrilobular Emphysema (Hcc) Social History [...] Pt sees the following specialists: Dr. Hutton, hot mill tin roller Review of Systems Constitutional: Negative for chills, [...] mg and hctz 25 mg daily 2. Xxuhb-4-brjyaiiebbr deficiency (HCC) - ICD9: 273.4, ICD10: E88.01 Under the care of Dr. Hutton, hot mill tin roller 3. Centrilobular emphysema (HCC) - ICD9: 492.8, ICD10: J43.2 Under the care of Dr. Hutton, hot mill tin roller 4. Obstructive sleep apnea syndrome - ICD9: 327.23, ICD10: G47.33 Uses bipap nightly 5. ALIRIO (generalized anxiety disorder) - ICD9: 300.02, ICD10: F41.1 Uses hydroxyzine as needed, once or twice a day - HYDROXYZINE HCL 25 MG TABLET Kayden Valencia DO documented in this encounter [facility] 01-11-2022 Miscellaneous Notes pharmacy electronically requesting refills as follows: Last seen 07/15/21 . Last refill 07/14/21 . Next office visit 01/13/22 Pending Prescriptions Disp Refills LOSARTAN 100 MG TABLET 90 tablet 1 Sig: TAKE 1 TABLET ONCE DAILY JAIR: Yes Please review and advise. Chetna Blanchard MA documented in this encounter [facility] 12-23-2021 Miscellaneous Notes Patients is informed. Karen Madrid MA Order attached erythromycin ----- Message from Chetna Blanchard MA sent at 07/22/2021 2:54 PM EST ----- Patient due for [address] to monitor nodules found on 06/25/21 CT. Chetna Blanchard MA documented in this encounter [facility] 11-12-2021 History of Present illness Narrative Images from the original note were not included. . [facility] [place] [facility] Patient name: Clarke Brown PCP: Kayden [...] Alcohol intake above recommended sensible limits (HCC) Xqgbb-2-jidhlnhmjkr deficiency (HCC) 2016 SZ Anxiety Benign essential [...] WALK - 5241 09/02/2020 NASAL SURGERY PROCEDURE [facility], approx 2005 PFT-PRE/POST BRONCHODILATOR 02/25/2014 PMH, [...] augmentation therapy 3. Former cigarette smoker -Former 65-izgz-ubuk smoker with sequelae of COPD -Continue abstinence Mely Hutton MD [facility] [place] documented in this encounter [facility] 09-07-2021 History of Present illness Narrative This is a 57-year-old male who has a history of COPD and alpha-1 antitrypsin deficiency. Patient's family physician is Betzy Valencia and he was a former patient of Dr. Noland. He was accompanied by his Pura. Patient has been seeing a hot mill tin roller in [place] namely Dr. Hutton. Patient had been on Prolastin up to 1 year ago because of insurance reasons he was not able to afford additional supplements. 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 Patient was born and raised in [place]. Patient also has a history of obstructive sleep apnea and is on CPAP therapy through [facility]. This is being managed by his family physician.Patient does have a an oxygen concentrator at home which she purchased and was a used device. He has minimal access to smaller portable tanks. -Pulmonary Medicine-[place] [address] DO Work Phone: 09-06-2021 History of Present illness Narrative This is a 57-year-old male who has a history of COPD and alpha-1 antitrypsin deficiency. Patient's family physician is Betzy Valencia and he was a former patient of Dr. Noland. He was accompanied by his Pura. Patient has been seeing a hot mill tin roller in [place] namely Dr. Hutton. Patient had been on Prolastin up to 1 year ago because of insurance reasons he was not able to afford additional supplements. 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 Patient was born and raised in [place]. Patient also has a history of obstructive sleep apnea and is on CPAP therapy through [facility]. This is being managed by his family physician.Patient does have a an oxygen concentrator at home which she purchased and was a used device. He has minimal access to smaller portable tanks. -Pulmonary Medicine-[address] Work Phone: documented as of this encounter (statuses as of 11/08/2021) [facility] History of Past illness Narrative* Problem Noted Date Resolved Date Smoker 11/27/2017 11/27/2017 Elevated blood pressure read ing without diagnosis of hypertension 02/23/2017 03/03/2017 Foot pain, left 02/09/2017 07/06/2020 Chronic obstructive lung disease 08/11/2016 02/09/2017 Sleep apnea 08/11/2016 02/09/2017 documented as of this encounter (statuses as of 11/13/2021) [address]16-2018 History of Past illness Narrative* Problem Noted Date Resolved Date Smoker 11/27/2017 11/27/2017 Elevated blood pressure read ing without diagnosis of hypertension 02/23/2017 03/03/2017 Foot pain, left 02/09/2017 07/06/2020 Chronic obstructive lung disease 08/11/2016 02/09/2017 Sleep apnea 08/11/2016 02/09/2017 documented as of this encounter (statuses as of 11/29/2021) [place] [id number] History of Past illness Narrative* Problem Noted Date Resolved Date Smoker 11/27/2017 11/27/2017 Elevated blood pressure read ing without diagnosis of hypertension 02/23/2017 03/03/2017 Foot pain, left 02/09/2017 07/06/2020 Chronic obstructive lung disease 08/11/2016 02/09/2017 Sleep apnea 08/11/2016 02/09/2017 documented as of this encounter (statuses as of 12/13/2021) [address]16-2018 History of Past illness Narrative* Problem Noted Date Resolved Date Smoker 11/27/2017 11/27/2017 Elevated blood pressure read ing without diagnosis of hypertension 02/23/2017 03/03/2017 Foot pain, left 02/09/2017 07/06/2020 Chronic obstructive lung disease 08/11/2016 02/09/2017 Sleep apnea 08/11/2016 02/09/2017 documented as of this encounter (statuses as of 12/23/2021) [address]16-2018 History of Past illness Narrative* Problem Noted Date Resolved Date Smoker 11/27/2017 11/27/2017 Elevated blood pressure read ing without diagnosis of hypertension 02/23/2017 03/03/2017 Foot pain, left 02/09/2017 07/06/2020 Chronic obstructive lung disease 08/11/2016 02/09/2017 Sleep apnea 08/11/2016 02/09/2017 documented as of this encounter (statuses as of 01/11/2022) [address]16-2018 History of Past illness Narrative* Problem Noted Date Resolved Date Smoker 11/27/2017 11/27/2017 Elevated blood pressure read ing without diagnosis of hypertension 02/23/2017 03/03/2017 Foot pain, left 02/09/2017 07/06/2020 Chronic obstructive lung disease 08/11/2016 02/09/2017 Sleep apnea 08/11/2016 02/09/2017 documented as of this encounter (statuses as of 01/24/2022) [address]16-2018 History of Past illness Narrative* Problem Noted Date Resolved Date Smoker 11/27/2017 11/27/2017 Elevated blood pressure read ing without diagnosis of hypertension 02/23/2017 03/03/2017 Foot pain, left 02/09/2017 07/06/2020 Chronic obstructive lung disease 08/11/2016 02/09/2017 Sleep apnea 08/11/2016 02/09/2017 documented as of this encounter (statuses as of 01/25/2022) [address]16-2018 History of Past illness Narrative* Problem Noted Date Resolved Date Smoker 11/27/2017 11/27/2017 Elevated blood pressure read ing without diagnosis of hypertension 02/23/2017 03/03/2017 Foot pain, left 02/09/2017 07/06/2020 Chronic obstructive lung disease 08/11/2016 02/09/2017 Sleep apnea 08/11/2016 02/09/2017 documented as of this encounter (statuses as of 02/24/2022) [address]16-2018 History of Past illness Narrative* Problem Noted Date Resolved Date Smoker 11/27/2017 11/27/2017 Elevated blood pressure read ing without diagnosis of hypertension 02/23/2017 03/03/2017 Foot pain, left 02/09/2017 07/06/2020 Chronic obstructive lung disease 08/11/2016 02/09/2017 Sleep apnea 08/11/2016 02/09/2017 documented as of this encounter (statuses as of 03/01/2022) [address]16-2018 History of Past illness Narrative* Problem Noted Date Resolved Date Smoker 11/27/2017 11/27/2017 Elevated blood pressure read ing without diagnosis of hypertension 02/23/2017 03/03/2017 Foot pain, left 02/09/2017 07/06/2020 Chronic obstructive lung disease 08/11/2016 02/09/2017 Sleep apnea 08/11/2016 02/09/2017 documented as of this encounter (statuses as of 03/18/2022) [address]16-2018 History of Past illness Narrative* Problem Noted Date Resolved Date Smoker 11/27/2017 11/27/2017 Elevated blood pressure read ing without diagnosis of hypertension 02/23/2017 03/03/2017 Foot pain, left 02/09/2017 07/06/2020 Chronic obstructive lung disease 08/11/2016 02/09/2017 Sleep apnea 08/11/2016 02/09/2017 documented as of this encounter (statuses as of 04/30/2022) [address]16-2018 History of Past illness Narrative* Problem Noted Date Resolved Date Smoker 11/27/2017 11/27/2017 Elevated blood pressure read ing without diagnosis of hypertension 02/23/2017 03/03/2017 Foot pain, left 02/09/2017 07/06/2020 Chronic obstructive lung disease 08/11/2016 02/09/2017 Sleep apnea 08/11/2016 02/09/2017 documented as of this encounter (statuses as of 05/04/2022) [address]16-2018 History of Past illness Narrative* Problem Noted Date Resolved Date Smoker 11/27/2017 11/27/2017 Elevated blood pressure read ing without diagnosis of hypertension 02/23/2017 03/03/2017 Foot pain, left 02/09/2017 07/06/2020 Chronic obstructive lung disease 08/11/2016 02/09/2017 Sleep apnea 08/11/2016 02/09/2017 documented as of this encounter (statuses as of 06/22/2022) [address]16-2018 History of Past illness Narrative* Problem Noted Date Resolved Date Smoker 11/27/2017 11/27/2017 Elevated blood pressure read ing without diagnosis of hypertension 02/23/2017 03/03/2017 Foot pain, left 02/09/2017 07/06/2020 Chronic obstructive lung disease 08/11/2016 02/09/2017 Sleep apnea 08/11/2016 02/09/2017 documented as of this encounter (statuses as of 06/23/2022) [address]16-2018 History of Past illness Narrative* Problem Noted Date Resolved Date Smoker 11/27/2017 11/27/2017 Elevated blood pressure read ing without diagnosis of hypertension 02/23/2017 03/03/2017 Foot pain, left 02/09/2017 07/06/2020 Chronic obstructive lung disease 08/11/2016 02/09/2017 Sleep apnea 08/11/2016 02/09/2017 documented as of this encounter (statuses as of 07/22/2022) [address]16-2018 History of Past illness Narrative* Problem Noted Date Resolved Date Smoker 11/27/2017 11/27/2017 Elevated blood pressure read ing without diagnosis of hypertension 02/23/2017 03/03/2017 Foot pain, left 02/09/2017 07/06/2020 Chronic obstructive lung disease 08/11/2016 02/09/2017 Sleep apnea 08/11/2016 02/09/2017 documented as of this encounter (statuses as of 07/22/2022) [address]16-2018 History of Past illness Narrative* Problem Noted Date Resolved Date Smoker 11/27/2017 11/27/2017 Elevated blood pressure read ing without diagnosis of hypertension 02/23/2017 03/03/2017 Foot pain, left 02/09/2017 07/06/2020 Chronic obstructive lung disease 08/11/2016 02/09/2017 Sleep apnea 08/11/2016 02/09/2017 documented as of this encounter (statuses as of 07/22/2022) [address]16-2018 History of Past illness Narrative* Problem Noted Date Resolved Date Smoker 11/27/2017 11/27/2017 Elevated blood pressure read ing without diagnosis of hypertension 02/23/2017 03/03/2017 Foot pain, left 02/09/2017 07/06/2020 Chronic obstructive lung disease 08/11/2016 02/09/2017 Sleep apnea 08/11/2016 02/09/2017 documented as of this encounter (statuses as of 08/17/2022) [address]16-2018 History of Past illness Narrative* Problem Noted Date Resolved Date Smoker 11/27/2017 11/27/2017 Elevated blood pressure read ing without diagnosis of hypertension 02/23/2017 03/03/2017 Foot pain, left 02/09/2017 07/06/2020 Chronic obstructive lung disease 08/11/2016 02/09/2017 Sleep apnea 08/11/2016 02/09/2017 documented as of this encounter (statuses as of 08/18/2022) [address]16-2018 History of Past illness Narrative* Problem Noted Date Resolved Date Smoker 11/27/2017 11/27/2017 Elevated blood pressure read ing without diagnosis of hypertension 02/23/2017 03/03/2017 Foot pain, left 02/09/2017 07/06/2020 Chronic obstructive lung disease 08/11/2016 02/09/2017 Sleep apnea 08/11/2016 02/09/2017 documented as of this encounter (statuses as of 08/24/2022) [address]16-2018 History of Past illness Narrative* Problem Noted Date Resolved Date Smoker 11/27/2017 11/27/2017 Elevated blood pressure read ing without diagnosis of hypertension 02/23/2017 03/03/2017 Foot pain, left 02/09/2017 07/06/2020 Chronic obstructive lung disease 08/11/2016 02/09/2017 Sleep apnea 08/11/2016 02/09/2017 documented as of this encounter (statuses as of 08/29/2022) [address]16-2018 History of Past illness Narrative* Problem Noted Date Resolved Date Smoker 11/27/2017 11/27/2017 Elevated blood pressure read ing without diagnosis of hypertension 02/23/2017 03/03/2017 Foot pain, left 02/09/2017 07/06/2020 Chronic obstructive lung disease 08/11/2016 02/09/2017 Sleep apnea 08/11/2016 02/09/2017 documented as of this encounter (statuses as of 09/07/2022) [address]16-2018 History of Past illness Narrative* Problem Noted Date Resolved Date Smoker 11/27/2017 11/27/2017 Elevated blood pressure read ing without diagnosis of hypertension 02/23/2017 03/03/2017 Foot pain, left 02/09/2017 07/06/2020 Chronic obstructive lung disease 08/11/2016 02/09/2017 Sleep apnea 08/11/2016 02/09/2017 documented as of this encounter (statuses as of 09/13/2022) [address]16-2018 History of Past illness Narrative* Problem Noted Date Resolved Date Smoker 11/27/2017 11/27/2017 Elevated blood pressure read ing without diagnosis of hypertension 02/23/2017 03/03/2017 Foot pain, left 02/09/2017 07/06/2020 Chronic obstructive lung disease 08/11/2016 02/09/2017 Sleep apnea 08/11/2016 02/09/2017 documented as of this encounter (statuses as of 10/21/2022) [address]16-2018 History of Past illness Narrative* Problem Noted Date Resolved Date Smoker 11/27/2017 11/27/2017 Elevated blood pressure read ing without diagnosis of hypertension 02/23/2017 03/03/2017 Foot pain, left 02/09/2017 07/06/2020 Chronic obstructive lung disease 08/11/2016 02/09/2017 Sleep apnea 08/11/2016 02/09/2017 documented as of this encounter (statuses as of 10/26/2022) [address]16-2018 History of Past illness Narrative* Problem Noted Date Resolved Date Smoker 11/27/2017 11/27/2017 Elevated blood pressure read ing without diagnosis of hypertension 02/23/2017 03/03/2017 Foot pain, left 02/09/2017 07/06/2020 Chronic obstructive lung disease 08/11/2016 02/09/2017 Sleep apnea 08/11/2016 02/09/2017 documented as of this encounter (statuses as of 11/07/2022) [address]16-2018 History of Past illness Narrative* Problem Noted Date Resolved Date Smoker 11/27/2017 11/27/2017 Elevated blood pressure read ing without diagnosis of hypertension 02/23/2017 03/03/2017 Foot pain, left 02/09/2017 07/06/2020 Chronic obstructive lung disease 08/11/2016 02/09/2017 Sleep apnea 08/11/2016 02/09/2017 documented as of this encounter (statuses as of 12/12/2022) [place] [id number] History of Past illness Narrative* Problem Noted Date Resolved Date Smoker 11/27/2017 11/27/2017 Elevated blood pressure read ing without diagnosis of hypertension 02/23/2017 03/03/2017 Foot pain, left 02/09/2017 07/06/2020 Chronic obstructive lung disease 08/11/2016 02/09/2017 Sleep apnea 08/11/2016 02/09/2017 documented as of this encounter (statuses as of 01/16/2023) [facility]16-[facility] History of Past illness Narrative* Problem Noted Date Diagnosed Date Resolved Date Smoker 11/27/2017 11/27/2017 Elevated blood pressure read ing without diagnosis of hypertension 02/23/2017 03/03/2017 Foot pain, left 02/09/2017 07/06/2020 Chronic obstructive lung disease 08/11/2016 02/09/2017 Sleep apnea 08/11/2016 02/09/2017 documented as of this encounter (statuses as of 05/05/2023) [address]16[address]2018 History of Past illness Narrative* Problem Noted Date Diagnosed Date Resolved Date Smoker 11/27/2017 11/27/2017 Elevated blood pressure read ing without diagnosis of hypertension 02/23/2017 03/03/2017 Foot pain, left 02/09/2017 07/06/2020 Chronic obstructive lung disease 08/11/2016 02/09/2017 Sleep apnea 08/11/2016 02/09/2017 documented as of this encounter (statuses as of 06/23/2023) [facility] complaint Narrative - Reported* CLARKE BROWN is here for an initial evaluation and here with , Toni Mendez. * Reason for Visit: COPD, Alpha-1 Antitrypsin Deficiency. * Appointment [facility] by: [facility] Referral. [facility] Work Phone: chi complaint Narrative - Reported* CLARKE BROWN is here for an initial evaluation and here with , Toni Mendez. * Reason for Visit: COPD, Alpha-1 Antitrypsin Deficiency. * Appointment requested by: Self Referral. [facility]-[place] 400 DO Work Phone: chief complaint Narrative - Reported* CLARKE BROWN is here for an initial evaluation and here with , Toni Mendez. * Reason for Visit: COPD, Alpha-1 Antitrypsin Deficiency. * Appointment requested by: Self Referral. -Pulmonary Medicine-[place] [address] DO Work Phone: chief complaint Narrative - ReportedCLARKE BROWN is being seen for a cardiovascular evaluation . NSTEMI.RQ-Gaqmnoiakq-Gcpujzo [address] [place] Work Phone: Evaluation note* Diagnosis Centrilobular emphysema (HCC) Other emphysema [facility] Diagnosis Stage 4 very severe COPD by GOLD classification ([facility])- Primary Tuwol-9-fzjcziiuugt deficiency (HCC) Cqeed-5-tapdclzrioc deficiency Former cigarette smoker Personal history of tobacco use, presenting hazards to health [facility] Lung nodules Other nonspecific abnormal finding of lung field [facility] Diagnosis Hypertension, essential- Primary Unspecified essential hypertension Guxrv-5-gaxexhxrzhp deficiency (HCC) Wdfzf-6-wgtuybwinrj deficiency Centrilobular emphysema (HCC) Other emphysema Obstructive sleep apnea syndrome Obstructive sleep apnea (adult) (pediatric) ALIRIO (generalized anxiety disorder) Generalized anxiety disorder [facility] Diagnosis Stage 4 very severe COPD by GOLD classification ([facility])- Primary Xatse-4-hzqvuhxwbkt deficiency (HCC) Toepc-2-mhmdmqbzwsf deficiency Former smoker Personal history of tobacco [...] 4 very severe COPD by GOLD classification ([facility])- Primary AAT (dnfme-6-qkykmtfepxh) deficiency (HCC) Fjkzl-4-jbqoycggqvs deficiency Dependence on nocturnal oxygen therapy Current chronic use of systemic steroids Need for influenza vaccination Need for prophylactic vaccination and inoculation against influenza [facility] Diagnosis COPD, very severe (HCC)- Primary Chronic airway obstruction, not elsewhere classified [facility] Diagnosis Well adult exam- Primary Routine general medical examination at a health care facility Hypertension, essential Unspecified essential hypertension Centrilobular emphysema (HCC) Other emphysema Obesity, Class I, BMI 30-34.9 Obesity, unspecified BMI 31.0-31.9,adult Body Mass Index 31.0-31.9, adult [facility] Diagnosis Encounter for immunization- Primary Need for other specified prophylactic vaccination against single bacterial disease [facility] Diagnosis Obstructive sleep apnea syndrome- Primary Obstructive sleep apnea (adult) (pediatric) [facility] Diagnosis Dermoid cyst of left ear- Primary [facility] Diagnosis ALIRIO (generalized anxiety disorder) Generalized anxiety disorder [facility] Diagnosis Centrilobular emphysema (CMS/HCC)- Primary Simple chronic bronchitis (CMS/HCC) Simple chronic bronchitis Hypoxemia documented in this encounter [facility] Work Phone: History of Present illness Narrative* [...] his prednisone at 5 mg daily. -Pulmonary Medicine-[address] Work Phone: History of Present illness [...] use his prednisone at 5 mg daily. [facility] [place] [address] [facility] Work Phone: History of Present illness [...] involved in pulmonary rehab at the hospital. [facility] [place] [address] [place] Work Phone: History of Present illness [...] in pulmonary rehab at the hospital. -Pulmonary Medicine-[place] [address] DO Work Phone: Summary Purpose Family History [...] FoundDocuments on File Type Date Recorded Patient Communications Writer Expl anation Advance Directive(s) 07/25/2021 8:27 PM Advance Directive(s) 06/04/2021 1:01 AM Advance Directive(s) 05/26/2021 3:19 PM Advance Directive(s) 12/03/2018 10:47 AM Documents on File Type Date Recorded Patient Communications Writer Expl anation Advance Directive(s) 07/25/2021 8:27 PM Advance Directive(s) 06/04/2021 1:01 AM Advance Directive(s) 05/26/2021 3:19 PM Advance Directive(s) 12/03/2018 10:47 AM Reason for Referral Specialty Diagnoses / Procedures Referred By Ingris t Referred To Contact CT IMAGING Diagnoses Lung nodules Procedures CT CHEST WO IVCON DIAGNOSTIC COMPUTED TOMOGRAPHY THORAX W/O CNTRST Kayden Valencia Sharon, DO [address] [place] [address] Ct Imaging Referral ID Status Reason Start Date Expiration Date Visits Requested Visits Authorized [id number] Pending Review Auto-Generat ed Referral 12/23/2021 01/22/2023 1 1 Specialty Diagnoses / Procedures Referred By Ingris t Referred To Contact Mely Hutton MD [address] [place] [address] Referral ID Status Reason Start Date Expiration Date V isits Requested Visits Authorized [id number] Pending Review 1 1 Referral ID Status Reason Start Date Expiration Date V isits Requested Visits Authorized [id number] Closed Auto-Generate d Referral 12/23/2021 01/22/2023 1 1 Specialty Diagnoses / Procedures Referred By Ingris t Referred To Contact Diagnoses Dermoid cyst of left ear Procedures CONSULT TO DERMATOLOGY OFFICE/OUTPATIENT [facility] MDM 60-74 MINUTES Annie Kayden C, DO [address] [place] [address] Melvin Redd [address] [place] [address] Referral ID Status Reason Start Date Expiration Date Visits Requested Visits Authorized [id number] Authorized PCP Requested Referral 10/25/2022 10/25/2023 1 [...] DATE CREATED AUTHOR AUTHOR'S ORGANIZ ATION 03/20/2019 [facility] DATE CREATED AUTHOR AUTHOR'S ORGANIZ ATION 03/05/2020 [facility] DATE CREATED AUTHOR AUTHOR'S ORGANIZ ATION 02/08/2023 [facility] DATE CREATED AUTHOR AUTHOR'S ORGANIZ ATION 02/09/2023 [facility] DATE CREATED AUTHOR AUTHOR'S ORGANIZ ATION 05/17/2023 [facility] DATE CREATED AUTHOR AUTHOR'S ORGANIZ ATION 06/13/2023 [facility] DATE CREATED AUTHOR AUTHOR'S ORGANIZ ATION 06/24/2023 [facility] DATE CREATED AUTHOR AUTHOR'S ORGANIZ ATION 06/25/2023 [facility] DATE CREATED AUTHOR AUTHOR'S LEXII POZO 08/20/2023 [facility] Source Comments (unrecognize d section and content) In the event this informatio n is protected by the Federal Confidentiality of Alcohol and Drug Abuse Patient Records regulations: The Federal rules restrict any use of the information to criminally investigate or prosecute any alcohol or drug abuse patient.[facility] the event this information is protected by the Federal Confidentiality of Alcohol and Drug Abuse Patient Records regulations: The Federal rules restrict any use of the information to criminally investigate or prosecute any alcohol or drug abuse patient.[facility] the event this information is protected by the Federal Confidentiality of Alcohol and Drug Abuse Patient Records regulations: The Federal rules restrict any use of the information to criminally investigate or prosecute any alcohol or drug abuse patient.[facility] the event this information is protected by the Federal Confidentiality of Alcohol and Drug Abuse Patient Records regulations: The Federal rules restrict any use of the information to criminally investigate or prosecute any alcohol or drug abuse patient.[facility] the event this information is protected by the Federal Confidentiality of Alcohol and Drug Abuse Patient Records regulations: The Federal rules restrict any use of the information to criminally investigate or prosecute any alcohol or drug abuse patient.[facility] the event this information is protected by the Federal Confidentiality of Alcohol and Drug Abuse Patient Records regulations: The Federal rules restrict any use of the information to criminally investigate or prosecute any alcohol or drug abuse patient.[facility] Hospital[facility] the event this information is protected by the Federal Confidentiality of Alcohol and Drug Abuse Patient Records regulations: The Federal rules restrict any use of the information to criminally investigate or prosecute any alcohol or drug abuse patient.[facility] the event this information is protected by the Federal Confidentiality of Alcohol and Drug Abuse Patient Records regulations: The Federal rules restrict any use of the information to criminally investigate or prosecute any alcohol or drug abuse patient.[facility] the event this information is protected by the Federal Confidentiality of Alcohol and Drug Abuse Patient Records regulations: The Federal rules restrict any use of the information to criminally investigate or prosecute any alcohol or drug abuse patient.[facility] the event this information is protected by the Federal Confidentiality of Alcohol and Drug Abuse Patient Records regulations: The Federal rules restrict any use of the information to criminally investigate or prosecute any alcohol or drug abuse patient.[facility]In the event this information is protected by the Federal Confidentiality of Alcohol and Drug Abuse Patient Records regulations: The Federal rules restrict any use of the information to criminally investigate or prosecute any alcohol or drug abuse patient.[facility] the event this information is protected by the Federal Confidentiality of Alcohol and Drug Abuse Patient Records regulations: The Federal rules restrict any use of the information to criminally investigate or prosecute any alcohol or drug abuse patient.[facility] HospitalIn the event this information is protected by the Federal Confidentiality of Alcohol and Drug Abuse Patient Records regulations: The Federal rules restrict any use of the information to criminally investigate or prosecute any alcohol or drug abuse patient.[facility] Hospital[facility] the event this information is protected by the Federal Confidentiality of Alcohol and Drug Abuse Patient Records regulations: The Federal rules restrict any use of the information to criminally investigate or prosecute any alcohol or drug abuse patient.[facility] HospitalIn the event this information is protected by the Federal Confidentiality of Alcohol and Drug Abuse Patient Records regulations: The Federal rules restrict any use of the information to criminally investigate or prosecute any alcohol or drug abuse patient.[facility] Hospital[facility] the event this information is protected by the Federal Confidentiality of Alcohol and Drug Abuse Patient Records regulations: The Federal rules restrict any use of the information to criminally investigate or prosecute any alcohol or drug abuse patient.[facility] HospitalIn the event this information is protected by the Federal Confidentiality of Alcohol and Drug Abuse Patient Records regulations: The Federal rules restrict any use of the information to criminally investigate or prosecute any alcohol or drug abuse patient.[facility] HospitalIn the event this information is protected by the Federal Confidentiality of Alcohol and Drug Abuse Patient Records regulations: The Federal rules restrict any use of the information to criminally investigate or prosecute any alcohol or drug abuse patient.[facility] HospitalIn the event this information is protected by the Federal Confidentiality of Alcohol and Drug Abuse Patient Records regulations: The Federal rules restrict any use of the information to criminally investigate or prosecute any alcohol or drug abuse patient.[facility] HospitalIn the event this information is protected by the Federal Confidentiality of Alcohol and Drug Abuse Patient Records regulations: The Federal rules restrict any use of the information to criminally investigate or prosecute any alcohol or drug abuse patient.[facility] HospitalIn the event this information is protected by the Federal Confidentiality of Alcohol and Drug Abuse Patient Records regulations: The Federal rules restrict any use of the information to criminally investigate or prosecute any alcohol or drug abuse patient.[facility] HospitalIn the event this information is protected by the Federal Confidentiality of Alcohol and Drug Abuse Patient Records regulations: The Federal rules restrict any use of the information to criminally investigate or prosecute any alcohol or drug abuse patient.[facility] HospitalIn the event this information is protected by the Federal Confidentiality of Alcohol and Drug Abuse Patient Records regulations: The Federal rules restrict any use of the information to criminally investigate or prosecute any alcohol or drug abuse patient.[facility] HospitalIn the event this information is protected by the Federal Confidentiality of Alcohol and Drug Abuse Patient Records regulations: The Federal rules restrict any use of the information to criminally investigate or prosecute any alcohol or drug abuse patient.[facility] HospitalIn the event this information is protected by the Federal Confidentiality of Alcohol and Drug Abuse Patient Records regulations: The Federal rules restrict any use of the information to criminally investigate or prosecute any alcohol or drug abuse patient.[facility] HospitalIn the event this information is protected by the Federal Confidentiality of Alcohol and Drug Abuse Patient Records regulations: The Federal rules restrict any use of the information to criminally investigate or prosecute any alcohol or drug abuse patient.[facility] HospitalIn the event this information is protected by the Federal Confidentiality of Alcohol and Drug Abuse Patient Records regulations: The Federal rules restrict any use of the information to criminally investigate or prosecute any alcohol or drug abuse patient.[facility] HospitalIn the event this information is protected by the Federal Confidentiality of Alcohol and Drug Abuse Patient Records regulations: The Federal rules restrict any use of the information to criminally investigate or prosecute any alcohol or drug abuse patient.[facility] HospitalIn the event this information is protected by the Federal Confidentiality of Alcohol and Drug Abuse Patient Records regulations: The Federal rules restrict any use of the information to criminally investigate or prosecute any alcohol or drug abuse patient.[facility] HospitalIn the event this information is protected by the Federal Confidentiality of Alcohol and Drug Abuse Patient Records regulations: The Federal rules restrict any use of the information to criminally investigate or prosecute any alcohol or drug abuse patient.[facility] HospitalIn the event this information is protected by the Federal Confidentiality of Alcohol and Drug Abuse Patient Records regulations: The Federal rules restrict any use of the information to criminally investigate or prosecute any alcohol or drug abuse patient.[facility] Reason for Visit (unrecogniz ed section and content) Reason Comments Follow Up COPD Specialty Diagnoses / Procedures Referred By Contac t Referred To Contact [facility] Diagnoses Stage 4 very severe COPD by GOLD classification (HCC) Procedures SIX MINUTE WALK CARDIOPULMONARY EXERCISE STRESS Mely Hutton MD [address] [place] [address] Respiratory [place] [address] [place] [address] Referral ID Status Reason Start Date Expiration Date V isits Requested Visits Authorized [id number] Closed Auto-Generate d Referral 08/20/2021 09/19/2022 1 [...] THORAX W/O CNTRST Kayden Valencia DO [address] [place] [address] Ct Imaging Referral ID Status Reason Start Date Expiration Date V isits Requested Visits Authorized [id number] Closed Auto-Generate d Referral 12/23/2021 01/22/2023 1 1 Reason Comments Results Reason Comments Strep Test Reason Onset Date Comments Established Patient 4 month foll ow up Immunizations 07/22/2022 Flu vaccination Reason Comments covid booster vaccine Reason Comments Patient Question Reason Comments Forms Renee CPAP/BIPA O rder Reason Comments cyst on left ear draining For the last w [place], was very painful, his worked on it and got most of it out. Reason Comments AAT deficiency Reason Comments Orders Reason Comments Bronchitis 4 MONTH CKHERE WITH , TONI MENDEZ Emphysema Care Teams (unrecognized sec tion and content) Ruby Rails Developer Relationship Specialty Start Date End Date Kayden Valencia DO [address] [place] [address] PCP - General Family Practice 02/09/17 Ruby Rails Developer Relationship Specialty Start Date End Date SheetsKayden DO [address] [place] [address] PCP - General Family Practice 02/09/17 Ruby Rails Developer Relationship Specialty Start Date End Date SheetsKayden, DO [address] [place] [address] PCP - General Family Practice 02/09/17 Ruby Rails Developer Relationship Specialty Start Date End Date SheetsKayden DO [address] [place] [address] PCP - General Family Practice 02/09/17 Ruby Rails Developer Relationship Specialty Start Date End Date SheetsKayden DO [address] [place] [address] PCP - General Family Practice 02/09/17 Ruby Rails Developer Relationship Specialty Start Date End Date Kayden Valencia DO [address] [place] [address] PCP - General Family Practice 02/09/17 Ruby Rails Developer Relationship Specialty Start Date End Date Kayden Valencia DO [address] [place] [address] PCP - General Family Practice 02/09/17 Ruby Rails Developer Relationship Specialty Start Date End Date Kayden Valencia DO [address] [place] [address] PCP - General Family Practice 02/09/17 Ruby Rails Developer Relationship Specialty Start Date End Date SheetsKayden DO [address] [place] [address] PCP - General Family Practice 02/09/17 Ruby Rails Developer Relationship Specialty Start Date End Date Sheets, Kayden Herrera, DO [address] [place] [address] PCP - General Family Practice 02/09/17 Ruby Rails Developer Relationship Specialty Start Date End Date Sheets, Kayden Herrera DO [address] [place] [address] PCP - General Family Medicine 02/09/17 Ruby Rails Developer Relationship Specialty Start Date End Date Sheets, Kayden Herrera, DO [address] [place] [address] PCP - General Family Medicine 02/09/17 Ruby Rails Developer Relationship Specialty Start Date End Date Sheets Kayden Herrera, DO [address] [place] [address] PCP - General Family Medicine 02/09/17 Ruby Rails Developer Relationship Specialty Start Date End Date Sheets Kayden Herrera, DO [address] [place] [address] PCP - General Family Medicine 02/09/17 Ruby Rails Developer Relationship Specialty Start Date End Date Sheets, Kayden Herrera DO [address] [place] [address] PCP - General Family Medicine 02/09/17 Ruby Rails Developer Relationship Specialty Start Date End Date Sheets, Kayden Herrera, DO [address] [place] [address] PCP - General Family Medicine 02/09/17 Ruby Rails Developer Relationship Specialty Start Date End Date Sheets Kayden Herrera, DO [address] [place] [address] PCP - General Family Medicine 02/09/17 Ruby Rails Developer Relationship Specialty Start Date End Date Sheets, Kayden Herrera DO [address] [place] [address] PCP - General Family Medicine 02/09/17 Ruby Rails Developer Relationship Specialty Start Date End Date Annie Kayden Herrera DO [address] [facility], [place] [id number] PCP - General Family Medicine 02/09/17 Ruby Rails Developer Relationship Specialty Start Date End Date Annie Kayden Herrera DO [address] [facility], [place] [id number] PCP - General Family Medicine 02/09/17 Ruby Rails Developer Relationship Specialty Start Date End Date Annie Kayden Herrera DO [address] [facility], [place] [id number] PCP - General Family Medicine 02/09/17 Ruby Rails Developer Relationship Specialty Start Date End Date AnnieKayden DO [address] [place] [place] [address] PCP - General Family Medicine 02/09/17 Ruby Rails Developer Relationship Specialty Start Date End Date Annie Kayden Herrera DO [address] [place] [place] [address] PCP - General Family Medicine 02/09/17 Ruby Rails Developer Relationship Specialty Start Date End Date Kayden Valencia DO [address] [place] [place] [address] PCP - General 08/31/22 Ruby Rails Developer Relationship Specialty Start Date End Date Annie Kayden Herrera DO [address] [facility], [place] [id number] PCP - General Family Medicine 02/09/17 FOR [...] BE BASED ON THE PRIMARY CLINICAL RECORDS. [facility] [employer] [facility]. provides no warranty or guarantee of the accuracy or completeness of information in this document.
[2023-09-08 12:41] VITALS: PULSE 100; PULSE 104; PULSE 108; PULSE 112; PULSE 116; PULSE 92; PULSE 93; PULSE 95; O2SAT 88; O2SAT 90; O2SAT 91; O2SAT 92; O2SAT 93; O2SAT 96
--- NOTE | 2023-09-08 12:44 | CPS ---
PATIENT ARRIVED FOR TESTING ON ROOM AIR. HE HAS OXYGEN AT HOME THROUGH [facility] IN [place]. TEST BEGAN ON ROOM AIR WITH 2LPM NC BEING APPLIED AT 2 MINUTES DUE TO SPO2 88% AND FALLING. REMAINDER OF WALK TEST ON 2LPM. PATIENT HAD INCREASED WOB, HE DID NOT USE ANY INHALED MEDICATIONS PRIOR TO ARRIVAL. HE REQUIRED 2 SHORT REST BREAKS.
--- NOTE | 2023-09-12 05:38 | WT_ITS ---
PSN 6 Minute Walk Test 6 Minute Walk Test 6 Minute Walk Test: 6 Minute Walk Test PSN:6-Minute Walk Test Start: 09/08/23 12:41 Freq: Status: Active Protocol: [id number] Document 09/08/23 12:41 [facility] (Rec: 09/08/23 12:47 [facility] [id number]) 6 Minute Walk Test Date Performed 09/08/23 Time Performed 12:15 Height 6 ft Weight: 91.626 kg Weight in Pounds 202.[address]: Jason Hutton Assistive device used: None Pre-test Oxygen Delivery Method Room Air Pulse Ox 91 Pulse Rate (60-100) 95 Dyspnea Erin Scale (0-10) 2 Reported Symptoms Increased Work of Breathing 1st minute Oxygen Delivery Method Room Air Pulse Ox 90 Pulse Rate (60-100) 100 Dyspnea Erin Scale (0-10) 3 Number of Rests Taken 0 Reported Symptoms Increased Work of Breathing 2nd minute Oxygen Delivery Method Room Air Pulse Ox 88 Pulse Rate (60-100) 92 Dyspnea Erin Scale (0-10) 3 Number of Rests Taken 1 Reported Symptoms Increased Work of Breathing 3rd minute Oxygen Flow Rate (L/min) 2 Oxygen Delivery Method Nasal Cannula Pulse Ox 93 Pulse Rate (60-100) 104 H Dyspnea Erin Scale (0-10) 3 Number of Rests Taken 0 Reported Symptoms Increased Work of Breathing 4th minute Oxygen Flow Rate (L/min) 2 Oxygen Delivery Method Nasal Cannula Pulse Ox 92 Pulse Rate (60-100) 108 H Dyspnea Erin Scale (0-10) 4 Number of Rests Taken 0 Reported Symptoms Increased Work of Breathing 5th minute Oxygen Flow Rate (L/min) 2 Oxygen Delivery Method Nasal Cannula Pulse Ox 93 Pulse Rate (60-100) 112 H Dyspnea Erin Scale (0-10) 4 Number of Rests Taken 1 Reported Symptoms Increased Work of Breathing 6th minute Oxygen Flow Rate (L/min) 2 Oxygen Delivery Method Nasal Cannula Pulse Ox 92 Pulse Rate (60-100) 116 H Dyspnea Erin Scale (0-10) 4 Number of Rests Taken 0 Reported Symptoms Increased Work of Breathing Post-test Oxygen Flow Rate (L/min) 2 Oxygen Delivery Method Nasal Cannula Pulse Ox 96 Pulse Rate (60-100) 93 Dyspnea Erin Scale (0-10) 2 Reported Symptoms Increased Work of Breathing Full Laps Walked 11 Partial Lap, Number of Tiles Walked 29 Total Distance Walked (ft) 678 01/26/24 12:44 Cardiopulmonary Services by Alena Chapman PATIENT ARRIVED FOR TESTING ON ROOM AIR. HE HAS OXYGEN AT HOME THROUGH [facility] IN [place]. TEST BEGAN ON ROOM AIR WITH 2LPM NC BEING APPLIED AT 2 MINUTES DUE TO SPO2 88% AND FALLING. REMAINDER OF WALK TEST ON 2LPM. PATIENT HAD INCREASED WOB, HE DID NOT USE ANY INHALED MEDICATIONS PRIOR TO ARRIVAL. HE REQUIRED 2 SHORT REST BREAKS. Initialized on 09/08/23 12:44 - END OF NOTE Interpretation Interpretation: The patient was noted to be 91% on room air at rest, but did desaturate to 88%The patient was noted to be after 2 minutes. Patient required 2 L to maintain saturations throughout testing. Patient did have an element of reflexive tachycardia as high as 116 bpm. Overall, the patient was able to travel 670 feet over the course of 6 minutes with no assistive devices and 2 breaks. These findings are consistent with a respiratory limitation exercise tolerance. Recommendations Recommendations: The patient requires no supplemental oxygen at rest, but should be using 2 L/min with any exertion.
== END | disposition home or self-care (01) ==
LOC: PSN 11:50
PROVIDERS: PCP Family Medicine; Referring Provider Internal Medicine Critical Care Medicine; Visit Provider Internal Medicine Critical Care Medicine
DX: J44.9 Chronic obstructive pulmonary disease, unspecified (principal)
CPT/HCPCS: 94618

== ENCOUNTER → 2023-11-23 | Outpatient (CLI) | payer MEDICAID, SELFPAY ==
--- NOTE | 2023-11-23 13:09 | CT_ITS ---
STUDY: CT CHEST WITHOUT CONTRAST REASON FOR EXAM: Male, 58 years old. New lung mass. COPD. Hypertension. RADIATION DOSAGE (If Supplied By Facility): CTDIvol = ( 12.52 ) mGy, DLP = ( 519.21 ) mGycm TECHNIQUE: Transaxial imaging was performed without the administration of intravenous contrast material. Multiplanar coronal and sagittal images were reformatted. Individualized dose optimization techniques were used for this CT. COMPARISON: Comparison is made with prior CT scan of the thorax dated August 18, 2023. FINDINGS: CHEST There are small bilateral benign-appearing axillary lymph nodes. Hyperinflation. Emphysematous changes more prominent in the upper lobes. The previously seen 2.3 cm x 1.2 cm spiculated nodule in the posterior aspect of the medial segment of the right lower lobe as result. The previously seen nodular density in the left lower lobe has almost completely resolved and most likely represents a linear scar at that site. There is no demonstrated pleural abnormality. There are mild calcifications of the coronary arteries. There are small lymph nodes within the mediastinum, which are normal in size and morphology most compatible with reactive lymph hyperplasia. Normal hilar regions. Normal unenhanced pulmonary arteries. Mild degree of calcific plaques at the level of the aortic arch. There are degenerative changes of the thoracic spine. There is no demonstrated abnormality of the visualized upper abdomen. CT/Chest without Contrast IMPRESSION: Interval resolution of the previously seen pleural-based nodule in the right lower lobe with mild residual scarring at the left lung base. Electronically Signed: Femi Huston MD at 15:06 EDT ,
== END | disposition home or self-care (01) ==
PROVIDERS: PCP Family Medicine; Referring Provider Nurse Practitioner Acute Care; Visit Provider Nurse Practitioner Acute Care
DX: R91.8 Other nonspecific abnormal finding of lung field (principal)
CPT/HCPCS: 71250

== ENCOUNTER → 2024-07-17 | Outpatient (CLI) | payer MEDICAID, SELFPAY | END | disposition home or self-care (01) | LOC: PSN 12:41 | PROVIDERS: PCP Family Medicine; Referring Provider Nurse Practitioner Acute Care; Visit Provider Nurse Practitioner Acute Care | DX: J43.2 Centrilobular emphysema (principal) | CPT/HCPCS: 94060; 94729 ==

== ENCOUNTER → 2024-08-16 | Outpatient (CLI) | payer MEDICAID, SELFPAY ==
[2024-08-16 15:53] LABS: Absolute Lymphocyte Count 1.49 X10^3/uL (0.83-4.51); Absolute Neutrophil Count 6.8 X10^3/uL (2.0-7.7); Basophil# 0.04 X10^3/uL; Basophil% 0.4 % (0-1); Eosinophil# 0.21 X10^3/uL; Eosinophils% 2.3 % (0-5); Hematocrit 45.6 % (40-54); Hemoglobin 15.2 g/dL (13.0-16.5); Lymphocyte # 1.49 X10^3/ul (0.83-4.51); Lymphocyte % 16.1 % (19-41); Mean Corp Hgb Conc 33.3 g/dL (32-36); Mean Corpuscular Hgb 30.2 pg (27.0-32.0); Mean Corpuscular Volume 90.7 fL (80-94); Mean Platelet Vol. 9.6 fl (6.2-12.0); Monocyte# 0.66 X10^3/uL; Monocyte% 7.1 % (0-10); NRBC Flagged by Analyzer 0 % (0-5); Neutrophil # 6.83 X10^3/uL (2.7-7.7); Neutrophil % 73.7 % (47-70); Platelet Count 354 K/mm3 (150-450); RBC Distribution Width CV 13.2 % (11.6-14.6); RBC Distribution Width SD 43.8 fl (35.1-43.9); Red Blood Count 5.03 M/mm3 (4.6-6.2); White Blood Count 9.3 K/mm3 (4.4-11.0)
[2024-08-18 08:07] LABS: Alpha Antitrypsin Serum 81 mg/dL (101-187)
== END | disposition home or self-care (01) ==
LOC: LAB 15:27
PROVIDERS: PCP Family Medicine; Referring Provider Nurse Practitioner Family; Visit Provider Nurse Practitioner Family
DX: R06.02 Shortness of breath (principal); E88.01 Alpha-1-antitrypsin deficiency
CPT/HCPCS: 36415; 82103; 85025

== ENCOUNTER → 2024-11-22 | Outpatient (CLI) | payer MEDICAID, SELFPAY ==
--- NOTE | 2024-11-22 14:00 | CT_ITS ---
PROCEDURE: LOW DOSE CT LUNG SCREENING 11/22/2024 REASON FOR EXAM: SMOKER TECHNIQUE: Low Dose CT Lung screening without contrast. Coronal and Sagittal reconstruction series were provided. One or more dose reduction techniques were used (e.g., Automated exposure control, adjustment of the mA and/or kV according to patient size, use of iterative reconstruction technique). REFERENCE LINK: [facility] Lung-RADS COMPARISON: None. FINDINGS: Heart size is within normal limits. No significant pericardial effusion. Mild LAD coronary artery calcifications. Normal caliber thoracic aorta and pulmonary arteries. No bulky adenopathy. No acute findings in the visualized upper abdomen. Superficial soft tissues are within normal limits. Central airways are patent. Mild secretions in the distal trachea and right mainstem bronchus. Mild emphysema. No acute infiltrates, pleural effusion or pneumothorax. No suspicious pulmonary nodule or mass. No acute osseous abnormality. CT/Low Dose CT Lung Screening IMPRESSION: No suspicious pulmonary nodule or mass. Lung-RADS Category: 1 Other Significant Findings: Emphysema and coronary artery disease. Reading Location: [id number]
== END | disposition home or self-care (01) ==
LOC: CT 13:57
PROVIDERS: PCP Family Medicine; Referring Provider Nurse Practitioner Acute Care; Visit Provider Nurse Practitioner Acute Care
DX: F17.211 Nicotine dependence, cigarettes, in remission (principal)
CPT/HCPCS: 71271